=== PATIENT | female | born 1965 | race Caucasian/White ===

== ENCOUNTER 2020-07-11 09:11 | Emergency (ER) | payer OTHER, MEDICAID, SELFPAY ==
[2020-07-11 09:20] VITALS: BP 152/93; PULSE 103; RESP 20; TEMP 37.1; O2SAT 100
--- NOTE | 2020-07-11 10:00 | ED.DENTAL ---
HPI - Dental/Oral General Chief complaint: Dental/Oral Stated complaint: tooth pain Source: patient and RN notes reviewed Limitations: no limitations History of Present Illness HPI Narrative: The patient, a smoker/rare drinker, presents with tooth ache. Patient states she had a tooth extraction earlier in the week, before the holiday weekend. She now complains of continued pain despite several visits subsequently, she is concerned she might have a mandible fracture [she was told she does not have dry socket].She has been treated with antibiotics and Tylenol with codeine ,which she has run out of. She requests refill pending her next dental visit. No fever, hoarseness, trismus, redness, discharge, and pain is worse at the left lower jaw extraction site-while the upper area is not as painful. Related Data Home Medications Medication Instructions Recorded Confirmed hydrocodone 7.5 mg-acetaminophen 1 tablet PO BID PRN 03/27/20 07/11/20 300 mg tablet duloxetine 30 mg capsule,delayed 60 mg PO BID cap 05/27/20 07/11/20 release cyclobenzaprine 10 mg PO DIRECTED 07/11/20 07/11/20 pregabalin 75 mg PO DAILY 07/11/20 07/11/20 sertraline 50 mg PO DAILY 07/11/20 07/11/20 Allergies Allergy/AdvReac Type Severity Reaction Status Date / Time No Known Allergies Allergy Unverified 12/03/18 09:21 Review of Systems Review of Systems: Narrative: General/Constitutional: No weight loss,fever Eyes: N0: Redness,discharge Ears/Nose/Throat: No: Epistaxis,ear discharge Respiratory: Denies: Hemoptysis Gastrointestinal: No Vomiting, Bleeding-rectal Skin: No Lumps, eruption Neurologic: No Focal Weakness,Sz Hematologic: Denies: Petechiae/Purpura Psychiatric: No: Suicida ideationl All Other Systems: Reviewed and Negative FORMERLY [facility] Past Medical History Medical History (Updated 07/11/20 @ 09:39 by Panda Gamboa MD) Anxiety Arthritis Back pain Bilateral hand pain Depression Fibromyalgia GERD (gastroesophageal reflux disease) IBS (irritable bowel syndrome) Migraines Surgical History Surgical History History of appendectomy History of cholecystectomy History of total right knee replacement Family History Family History Mother Depression Anxiety Father Hypertension Grandparent Anxiety Depression Heart attack Grandparent Dementia Grandparent Carcinoma of colon Alzheimer disease Social History Social History Smoking status: Current every day smoker Tobacco type: cigarettes Additional smoking assessment comments: 1 PPD Alcohol intake: current Substance use: never Substance use type: does not use Additional living arrangements comments: Gender identity (if verbalized by the patient): Female Comments At time of signature, agree with nursing past medical, surgical, social and family history. There is no relevant family history pertinent to the presenting complaint Exam Narrative: Exam Narrative: General Appearance: Well appearing, Well nourished, Obese EYE: PERRLA, EOMI, Conjunctiva clear Ears: External ear normal, Auditory canal normal Nose: Normal nose Mouth/Throat: Normal appearing -with mild left lower jaw swelling), Normal lips, MM moist, Uvula midline (scattered dental caries and fillings,, with rare fracture, well-healing extraction site Neck: Supple, No adenopathy Respiratory: Airway patent, No respiratory distress, Clear to auscultation Cardiovascular: RRR Musculoskeletal: Full ROM, Non tender, Normal strength Spine/Back: Normal ROM Skin: Warm, Dry, Normal color Neurological: A&O x3, Speech clear, CN II-XII intact Psychiatric: Normal mood, Normal affect Course Vital Signs Vital signs: Vital Signs Temperature 98.8 F 07/11/20 09:20 Pulse Rate 103 H 07/11/20 09:20 Respiratory Rate 20 12
== END 2020-07-11 09:43 | disposition home or self-care (01) ==
PROVIDERS: Emergency Provider Emergency Medicine; PCP Internal Medicine
DX: G89.18 Other acute postprocedural pain (principal); F41.9 Anxiety disorder, unspecified; M19.90 Unspecified osteoarthritis, unspecified site; F32.9 Major depressive disorder, single episode, unspecified; M79.7 Fibromyalgia; K21.9 Gastro-esophageal reflux disease without esophagitis
CPT/HCPCS: 99213; G0463

== ENCOUNTER 2021-04-01 16:50 | Emergency (ER) | payer OTHER, SELFPAY ==
--- NOTE | 2021-04-01 16:53 | ED.SKABFB ---
HPI - Skin/Abscess/Foreign Bdy General Chief complaint: Skin/Abscess/Foreign Body Stated complaint: left pointer finger lac Time Seen by Provider: 04/01/21 16:53 Source: patient and RN notes reviewed History of Present Illness HPI narrative: Patient is a 55-year-old female who presents the urgent care with complaints of a laceration to the tip of the left index finger. Patient is right-hand dominant. States that she was using a box person to open a package at approximately 4:30 PM and it was not able to control the bleeding. No other acute complaints. No acute distress noted. Patient aware of the plan of care. Some parts of this dictation were generated by voice recognition software and may contain typographical and/or grammatical inaccuracies. Related Data Home Medications Medication Instructions Recorded Confirmed hydrocodone 7.5 mg-acetaminophen 1 tablet PO BID PRN 03/27/20 07/11/20 300 mg tablet duloxetine 30 mg capsule,delayed 60 mg PO BID cap 05/27/20 07/11/20 release pregabalin 75 mg PO DAILY 07/11/20 07/11/20 sertraline 50 mg PO DAILY 07/11/20 07/11/20 Allergies Allergy/AdvReac Type Severity Reaction Status Date / Time No Known Allergies Allergy Verified 04/01/21 17:27 Review of Systems Review of Systems: CONSTITUTIONAL: Denies fever, chills, or sweats. EYES: Denies visual changes, redness, or discharge. ENT: Denies rhinorrhea, congestion, sore throat, or otalgia. CARDIOVASCULAR: Denies chest pain, palpitations, or edema. RESPIRATORY: Denies cough or dyspnea. GASTROINTESTINAL: Denies abdominal pain, nausea, vomiting, or diarrhea. GENITOURINARY: Denies dysuria or hematuria. SKIN: Reports of a laceration to the tip of the left index finger MUSCULOSKELETAL: Denies back pain, joint pain, or myalgia. NEUROLOGIC: Denies headache, numbness, or weakness. All other systems reviewed are negative, except as documented in HPI. FORMERLY [facility], [facility] Past Medical History Medical History (Updated 04/01/21 @ 17:29 by KRISTEN Chandler) Anxiety Arthritis Back pain Bilateral hand pain Depression Fibromyalgia GERD (gastroesophageal reflux disease) IBS (irritable bowel syndrome) Migraines Surgical History Surgical History History of appendectomy History of cholecystectomy History of total right knee replacement Family History Family History Mother Depression Anxiety Father Hypertension Grandparent Anxiety Depression Heart attack Grandparent Dementia Grandparent Carcinoma of colon Alzheimer disease Social History Social History Smoking status: Current every day smoker Tobacco type: cigarettes Additional smoking assessment comments: 1 PPD Alcohol intake: current Alcohol use details: Wine- occasionally Substance use: never Substance use type: does not use Additional living arrangements comments: Gender identity (if verbalized by the patient): Female Comments At the time of my signature, I reviewed and agree with the nursing past medical, surgical, social, and family history. There is no relevant family history pertinent to the patient complaint. Exam Narrative: GENERAL: This is a well-nourished, well-developed patient, in no apparent distress. HEAD: normocephalic, atraumatic. EYES: PERRL. Sclera clear/white. Vision is grossly intact. EARS: External ears normal NOSE: External nose normal with no obvious nasal discharge, nares without redness, no rhinorrhea. THROAT: Mucous membranes moist NECK: Neck supple CARDIOVASCULAR: Regular rate and rhythm without murmurs, gallops, or rubs. RESPIRATORY: Clear to auscultation. Breath sounds equal bilaterally. No wheezes, rales, or rhonchi. SKIN: 0.75 cm superficial laceration to the tuft of the left index finger. NEURO: awake, alert, and oriented to person, place and
[2021-04-01 16:58] VITALS: BP 111/72; PULSE 125; RESP 20; TEMP 36.3; O2SAT 96
== END 2021-04-01 17:50 | disposition home or self-care (01) ==
PROVIDERS: Emergency Provider Nurse Practitioner Family; PCP Internal Medicine
DX: S61.211A Laceration without foreign body of left index finger without damage to nail, initial encounter (principal); Z79.891 Long term (current) use of opiate analgesic; F17.210 Nicotine dependence, cigarettes, uncomplicated; W45.8XXA Other foreign body or object entering through skin, initial encounter
CPT/HCPCS: 12001; 99212; G0463

== ENCOUNTER 2021-06-16 19:19 | Emergency (ER) | payer OTHER, SELFPAY ==
--- NOTE | ~2021-06-16 | XR_ITS ---
EXAMINATION: XR chest 2V DATE: 06/16/2021 19:41 INDICATION: Cough. TECHNIQUE: Frontal and lateral views of the chest were obtained. COMPARISON: Chest 2 views 07/14/2017 FINDINGS: The chest demonstrates clear lungs without pneumonia, pleural effusion, or pneumothorax. Th e heart size is normal. Surgical clips in the right upper quadrant are likely from cholecystectomy. IMPRESSION: 1. No acute cardiopulmonary disease. Reviewed, dictated and finalized at location A. [facility]
[2021-06-16 19:30] VITALS: BP 150/88; PULSE 91; RESP 22; TEMP 36.8; O2SAT 99
[2021-06-16 20:01] VITALS: BP 150/88; PULSE 91; RESP 22; TEMP 36.8; O2SAT 99
--- NOTE | 2021-06-16 20:11 | ED.URI ---
HPI - URI/Sore Throat General Chief Complaint: Upper Respiratory Infection Stated Complaint: Cough/Headache Time Seen by Provider: 06/16/21 19:45 Source: patient, RN notes reviewed and old records reviewed Mode of arrival: ambulatory Limitations: no limitations History of Present Illness HPI Narrative: 55-year-old female who presents to [facility] with complaints of nasal congestion starting last week with cough starting on Monday which has increased daily which is harsh. Patient states some shortness of breath and has noticed some wheezing especially at night when lying down.Patient reports that she has some shortness of breath with cough and feels light head at times when she coughs. Patient as been COVID vaccinated but not received Booster yet. Patient reports that she has taken Tylenol and Mucinex sinus for her symptoms which has not relieved any of her symptoms. MD elicited complaint: cough, rhinorrhea and other (shortness of breath with some wheezing) Related Data Home Medications Medication Instructions Recorded Confirmed esomeprazole magnesium [Nexium 20 mg PO DAILY 06/16/21 06/16/21 24HR] hydrocodone-acetaminophen 1 tablet PO Q6-8H PRN 06/16/21 06/16/21 paroxetine HCl 40 mg PO DAILY 06/16/21 06/16/21 pregabalin 200 mg PO BID 06/16/21 06/16/21 valacyclovir 1 mg PO DAILY 06/16/21 06/16/21 Allergies Allergy/AdvReac Type Severity Reaction Status Date / Time No Known Allergies Allergy Verified 04/01/21 17:27 Review of Systems Review of Systems: CONSTITUTIONAL: Low grade fever, chills, or sweats. EYES: Denies visual changes, redness, or discharge. ENT: Positive rhinorrhea, congestion, sore throat, ears feel clogged CARDIOVASCULAR: Denies chest pain, palpitations, or edema. RESPIRATORY:Positive for cough or dyspnea with cough and wheezing. GASTROINTESTINAL: Denies abdominal pain, nausea, vomiting, or diarrhea. GENITOURINARY: Denies dysuria or hematuria. SKIN: Denies rash or itching. MUSCULOSKELETAL: Chronic back pain, joint pain, or myalgia. NEUROLOGIC: Positive for headache, numbness, or weakness. PSYCHIATRIC:Positive anxiety or depression. All systems reviewed & are unremarkable except as noted in HPI and below PMFSH Past Medical History Medical History (Updated 06/17/21 @ 00:00 by Background Daemon) Anxiety Arthritis Back pain Bilateral hand pain Depression Fibromyalgia GERD (gastroesophageal reflux disease) IBS (irritable bowel syndrome) Migraines Surgical History Surgical History (Updated 06/19/21 @ 17:37 by Suzi Crystal NP) History of appendectomy History of cholecystectomy History of tonsillectomy History of total right knee replacement Family History Family History Mother Depression Anxiety Father Hypertension Grandparent Anxiety Depression Heart attack Grandparent Dementia Grandparent Carcinoma of colon Alzheimer disease Social History Social History (Updated 06/19/21 @ 17:49 by Suzi Crystal NP) Smoking packs per day: 0.5 Smoking cigarettes per day: 10.0 Years smoked: 18 Smoking pack-years: 9.00 Smoking status: Former smoker Tobacco type: cigarettes Alcohol intake: current Alcohol use details: Wine- occasionally Substance use: never Substance use type: does not use Additional living arrangements comments: Gender identity (if verbalized by the patient): Female Comments At time of signature, agree with nursing past medical, surgical, social and family history. There is no relevant family history pertinent to the presenting complaint Exam Narrative: GENERAL: Well-appearing, well-nourished, and in no acute distress. HEAD: Normocephalic, atraumatic. EYES: PERRLA and EOMI. ENT: Nares patent, clear rhinorrhea no epistaxis. Mucous membranes moist.TM's lauren;l with good light reflex, throat red with no lesions or exudates, tonsils absent NECK: Supple.no lymphaden
== END 2021-06-16 20:25 | disposition home or self-care (01) ==
PROVIDERS: Emergency Provider Registered Nurse
DX: J40 Bronchitis, not specified as acute or chronic (principal); Z20.822 Contact with and (suspected) exposure to COVID-19; Z79.891 Long term (current) use of opiate analgesic; Z87.891 Personal history of nicotine dependence
CPT/HCPCS: 71046; 87426; 99213; C9803; G0463

== ENCOUNTER 2022-03-24 17:37 | Emergency (ER) | payer OTHER, SELFPAY ==
--- NOTE | ~2022-03-24 | XR_ITS ---
EXAMINATION: XR shoulder RT min 2V DATE: 03/24/2022 18:22 INDICATION: Anterior right shoulder pain and limited range of motion post fall TECHNIQUE: AP internally and externally rotated, AP oblique externally rotated and transscapular Y vi ews of the affected shoulder were obtained. COMPARISON: None FINDINGS: Normal alignment. No fracture. Glenohumeral joint is normal. Mild acromioclavicular osteoarthritis. Soft tissues are unremarkable. Visualized portions of the right lung are clear. IMPRESSION: Mild acromial clavicular osteoarthritis. No acute osseous abnormality. Reviewed, dictated and finalized at location A.
--- NOTE | ~2022-03-24 | XR_ITS ---
EXAMINATION: XR ankle RT min 3V DATE: 03/24/2022 18:22 INDICATION: Right ankle pain and swelling post fall TECHNIQUE: Anteroposterior, oblique, mortise, and lateral views of the right ankle were obtained. COMPARISON: None. FINDINGS: Alignment is normal. No fracture. Joint spaces are well maintained. No ankle joint effusion. Mild s oft tissue swelling about the ankle both medially and laterally. IMPRESSION: 1. No right ankle joint effusion or osseous abnormality. Reviewed, dictated and finalized at location A.
--- NOTE | ~2022-03-24 | XR_ITS ---
EXAMINATION: XR hip RT min 2V DATE: 03/24/2022 18:22 INDICATION: Lateral right hip pain post fall TECHNIQUE: Anteroposterior and frog-leg lateral views of the right hip were obtained. COMPARISON: None. FINDINGS: Alignment is normal. No fracture. Right hip and sacroiliac joint spaces are normal. Mild soft tissue swelling and mild subcutaneous edema lateral to the greater trochanter. IMPRESSION: 1. No osseous abnormality. Reviewed, dictated and finalized at location A. IMPRESSION: 1. No osseous abnormality.
[2022-03-24 17:45] VITALS: BP 102/64; PULSE 98; RESP 16; TEMP 36.7; O2SAT 97
--- NOTE | 2022-03-24 18:19 | ED.GENADULT ---
HPI - General Adult General Chief complaint: Extremity Injury, Lower Stated complaint: right ankle leg and hip injury Time Seen by Provider: 03/24/22 18:00 Source: patient, RN notes reviewed and old records reviewed Mode of arrival: ambulatory Limitations: no limitations History of Present Illness HPI narrative: 56-year-old female who presents to [facility] care with complaints of pain to her right hip, right ankle, and right shoulder after experiencing fall yesterday morning. Patient reports she was stepping up onto step onto the porch and missed the step falling into a brick wall with pain to right ankle laterally with some swelling noted, is able to put weight on her foot.Patient reports that she did hit her head bur denies any LOC or headache pain today, or any dizziness. Patient is concerned related to upcoming back surgery. MD complaint: pain right ankle, hip and shooulder Onset (ago): day(s) (happened yesterday morning) Severity scale (1-10): 7 Treatments prior to arrival: other (on muscle relaxer and pain medication for back) Related Data Home Medications Medication Instructions Recorded Confirmed esomeprazole magnesium 20 mg 20 mg PO DAILY 06/16/21 03/24/22 capsule,delayed release (Nexium 24HR) paroxetine HCl 40 mg tablet 40 mg PO DAILY 06/16/21 03/24/22 valacyclovir 1 gram tablet 1 mg PO DAILY 06/16/21 03/24/22 atorvastatin 10 mg tablet 10 mg PO DAILY 03/24/22 03/24/22 hydrocodone 10 mg-acetaminophen 1 tablet PO DAILY 03/24/22 03/24/22 325 mg tablet prazosin 1 mg capsule 1 mg PO DAILY 03/24/22 03/24/22 pregabalin 300 mg capsule 300 mg PO DAILY 03/24/22 03/24/22 Allergies Allergy/AdvReac Type Severity Reaction Status Date / Time No Known Allergies Allergy Verified 03/24/22 18:08 Review of Systems Review of Systems: CONSTITUTIONAL: Denies fever, chills, or sweats. EYES: Denies visual changes, redness, or discharge. ENT: Denies rhinorrhea, congestion, sore throat, or otalgia. CARDIOVASCULAR: Denies chest pain, palpitations, or edema. RESPIRATORY: Denies cough or dyspnea. GASTROINTESTINAL: Denies abdominal pain, nausea, vomiting, or diarrhea. GENITOURINARY: Denies dysuria or hematuria. SKIN: Denies rash or itching. MUSCULOSKELETAL: positive for chronic back pain,positive for right lateral ankle pain right nip and right shoulder from fall or myalgia. NEUROLOGIC: Denies headache, numbness, or weakness. PSYCHIATRIC: Denies anxiety or depression. All systems reviewed & are unremarkable except as noted in HPI and below PMFSH Past Medical History Medical History Anxiety Arthritis Back pain Bilateral hand pain Depression Fibromyalgia GERD (gastroesophageal reflux disease) IBS (irritable bowel syndrome) Migraines Surgical History Surgical History History of appendectomy History of cholecystectomy History of tonsillectomy History of total right knee replacement Family History Family History Mother Depression Anxiety Father Hypertension Grandparent Anxiety Depression Heart attack Grandparent Dementia Grandparent Carcinoma of colon Alzheimer disease Social History Social History Smoking packs per day: 0.5 Smoking cigarettes per day: 10.0 Years smoked: 18 Smoking pack-years: 9.00 Smoking status: Former smoker Tobacco type: cigarettes Alcohol intake: current Alcohol use details: Wine- occasionally Substance use: never Substance use type: does not use Additional living arrangements comments: Gender identity (if verbalized by the patient): Female Comments At time of signature, agree with nursing past medical, surgical, social and family history. There is no relevant family history pertinent to the presenting complaint Exam Narrati
== END 2022-03-24 19:15 | disposition home or self-care (01) ==
PROVIDERS: Emergency Provider Registered Nurse; PCP Internal Medicine
DX: S40.011A Contusion of right shoulder, initial encounter (principal); S70.01XA Contusion of right hip, initial encounter; S93.401A Sprain of unspecified ligament of right ankle, initial encounter; S96.911A Strain of unspecified muscle and tendon at ankle and foot level, right foot, initial encounter; W10.9XXA Fall (on) (from) unspecified stairs and steps, initial encounter; Z87.891 Personal history of nicotine dependence; M19.90 Unspecified osteoarthritis, unspecified site; M79.7 Fibromyalgia; K21.9 Gastro-esophageal reflux disease without esophagitis; F41.9 Anxiety disorder, unspecified; F32.A Depression, unspecified
CPT/HCPCS: 73030; 73502; 73610; 99214; G0463

== ENCOUNTER 2022-09-24 11:33 | Emergency (ER) | payer OTHER, SELFPAY ==
[2022-09-24 11:38] VITALS: BP 115/81; PULSE 126; RESP 20; TEMP 36.9; O2SAT 98
--- NOTE | 2022-09-24 11:44 | ED.URI ---
HPI - URI/Sore Throat General Chief Complaint: Upper Respiratory Infection Stated Complaint: sinus and ears History of Present Illness HPI Narrative: patient presents with bilateral ear pain and nasal congestion. no fever no cough patient states she had covid 3 weeks ago and still has nasal congestion. Patient was evaluated by PCP on monday and told her she has a viral infection. Related Data Home Medications Medication Instructions Recorded Confirmed esomeprazole magnesium 20 mg 20 mg PO DAILY 06/16/21 03/24/22 capsule,delayed release (Nexium 24HR) paroxetine HCl 40 mg tablet 40 mg PO DAILY 06/16/21 03/24/22 valacyclovir 1 gram tablet 1 mg PO DAILY 06/16/21 03/24/22 atorvastatin 10 mg tablet 10 mg PO DAILY 03/24/22 03/24/22 hydrocodone 10 mg-acetaminophen 1 tablet PO DAILY 03/24/22 03/24/22 325 mg tablet prazosin 1 mg capsule 1 mg PO DAILY 03/24/22 03/24/22 pregabalin 300 mg capsule 300 mg PO DAILY 03/24/22 03/24/22 Allergies Allergy/AdvReac Type Severity Reaction Status Date / Time No Known Allergies Allergy Verified 03/24/22 18:08 Review of Systems Review of Systems: CONSTITUTIONAL: Denies chills, or sweats. Reports fever and generalized body aches EYES: Denies visual changes, redness, or discharge. ENT: Denies otalgia. Reports nasal congestion runny nose and sore throat CARDIOVASCULAR: Denies chest pain, palpitations, or edema. RESPIRATORY: Denies dyspnea. Reports occasional cough GASTROINTESTINAL: Denies abdominal pain, nausea, vomiting, or diarrhea. GENITOURINARY: Denies dysuria or hematuria. SKIN: Denies rash or itching. MUSCULOSKELETAL: Denies back pain, joint pain, or myalgia. Reports generalized body aches NEUROLOGIC: Denies headache, numbness, or weakness. PSYCHIATRIC: Denies anxiety or depression. [facility] Past Medical History Medical History Anxiety Arthritis Back pain Bilateral hand pain Depression Fibromyalgia GERD (gastroesophageal reflux disease) IBS (irritable bowel syndrome) Migraines Surgical History Surgical History History of appendectomy History of cholecystectomy History of tonsillectomy History of total right knee replacement Family History Family History Mother Depression Anxiety Father Hypertension Grandparent Anxiety Depression Heart attack Grandparent Dementia Grandparent Carcinoma of colon Alzheimer disease Social History Social History Smoking packs per day: 0.5 Smoking cigarettes per day: 10.0 Years smoked: 18 Smoking pack-years: 9.00 Smoking status: Former smoker Tobacco type: cigarettes Alcohol intake: current Alcohol use details: Wine- occasionally Substance use: never Substance use type: does not use Living arrangements: alone Additional living arrangements comments: Occupation/Education: occupation Gender identity (if verbalized by the patient): Female Comments At time of signature, agree with nursing past medical, surgical, social and family history. There is no relevant family history pertinent to the presenting complaint Exam Narrative: The patient is a well-developed, well-nourished in no acute distress. SKIN: Skin is warm and dry without erythema, swelling or exudate. There is good turgor. No tenting. HEAD: Atraumatic. Normocephalic. No temporal or scalp tenderness. EYES: Moist and bright. Sclera and conjunctivae normal. No discharge. PERRLA. Extraocular motions intact. Gross visual acuity intact. EARS: Pinna is normal shape and contour. Clear external auditory canals. TM pearly wilson with good cone of light, no erythema or suppuration. Bilateral cerumen noted no gross hearing deficit. NOSE: pink, moist mucosa with good air movement. Clear rhinorrhea without nasal flar
== END 2022-09-24 12:02 | disposition home or self-care (01) ==
PROVIDERS: Emergency Provider Nurse Practitioner Family; PCP Internal Medicine
DX: J06.9 Acute upper respiratory infection, unspecified (principal); B34.9 Viral infection, unspecified; Z87.891 Personal history of nicotine dependence; M19.90 Unspecified osteoarthritis, unspecified site; M79.7 Fibromyalgia; K21.9 Gastro-esophageal reflux disease without esophagitis; F41.9 Anxiety disorder, unspecified; F32.A Depression, unspecified; Z96.651 Presence of right artificial knee joint
CPT/HCPCS: 99213; G0463

== ENCOUNTER 2022-12-26 18:06 | Emergency (ER) | payer OTHER, SELFPAY ==
--- NOTE | ~2022-12-26 | XR_ITS ---
EXAM: XR hand RT min 3V DATE: 12/26/2022 18:25 HISTORY: CAUGHT IN T[place]LE 12/26/22. ATTN: 3-5TH DIGITS. . COMPARISON: None available. FINDINGS: Decreased mineralization. No fracture or dislocation. No lytic or blastic lesion. Mild sca ttered degenerative changes. No erosion or periosteal change. Soft tissues within normal limits. IMPRESSION: No acute osseous finding in the right hand. Reviewed, dictated and finalized at location K.
[2022-12-26 18:12] VITALS: BP 150/100; PULSE 77; RESP 20; TEMP 36.7; O2SAT 100
--- NOTE | 2022-12-26 18:18 | ED.UPPEXIN ---
HPI - Extremity Injury (Upper) General Chief Complaint: Extremity Injury, Upper Stated Complaint: Finger Injury History of Present Illness HPI narrative: PATIENT PRESENTS WITH AN INJURY TO HER HAND. PATIENT WAS SETTING UP A FENCE AND CAUGHT HER 3RD, 4TH AND TH FINGERS IN THE CHAIN LINK FENCE. PAIN TO FINGERS WITH MOVEMENT. NO OPEN AREAS NOTED. Related Data Home Medications Medication Instructions Recorded Confirmed esomeprazole magnesium 20 mg 20 mg PO DAILY 06/16/21 03/24/22 capsule,delayed release (Nexium 24HR) paroxetine HCl 40 mg tablet 40 mg PO DAILY 06/16/21 03/24/22 valacyclovir 1 gram tablet 1 mg PO DAILY 06/16/21 03/24/22 atorvastatin 10 mg tablet 10 mg PO DAILY 03/24/22 03/24/22 hydrocodone 10 mg-acetaminophen 1 tablet PO DAILY 03/24/22 03/24/22 325 mg tablet prazosin 1 mg capsule 1 mg PO DAILY 03/24/22 03/24/22 pregabalin 300 mg capsule 300 mg PO DAILY 03/24/22 03/24/22 Allergies Allergy/AdvReac Type Severity Reaction Status Date / Time No Known Allergies Allergy Verified 03/24/22 18:08 Review of Systems Review of Systems: CONSTITUTIONAL: DENIES FEVER, CHILLS, OR SWEATS. EYES: DENIES VISUAL CHANGES, REDNESS, OR DISCHARGE. ENT: DENIES RHINORRHEA, CONGESTION, SORE THROAT, OR OTALGIA. CARDIOVASCULAR: DENIES CHEST PAIN, PALPITATIONS, OR EDEMA. RESPIRATORY: DENIES COUGH OR DYSPNEA. GASTROINTESTINAL: DENIES ABDOMINAL PAIN, NAUSEA, VOMITING, OR DIARRHEA. GENITOURINARY: DENIES DYSURIA OR HEMATURIA. SKIN: DENIES RASH OR ITCHING. MUSCULOSKELETAL: DENIES BACK PAIN, JOINT PAIN, OR MYALGIA. NEUROLOGIC: DENIES HEADACHE, NUMBNESS, OR WEAKNESS. PSYCHIATRIC: DENIES ANXIETY OR DEPRESSION. [facility] Past Medical History Medical History Anxiety Arthritis Back pain Bilateral hand pain Depression Fibromyalgia GERD (gastroesophageal reflux disease) IBS (irritable bowel syndrome) Migraines Surgical History Surgical History History of appendectomy History of cholecystectomy History of tonsillectomy History of total right knee replacement Family History Family History Mother Depression Anxiety Father Hypertension Grandparent Anxiety Depression Heart attack Grandparent Dementia Grandparent Carcinoma of colon Alzheimer disease Social History Social History Smoking packs per day: 0.5 Smoking cigarettes per day: 10.0 Years smoked: 18 Smoking pack-years: 9.00 Smoking status: Former smoker Tobacco type: cigarettes Alcohol intake: current Alcohol use details: Wine- occasionally Substance use: never Substance use type: does not use Living arrangements: alone Additional living arrangements comments: Occupation/Education: occupation Gender identity (if verbalized by the patient): Female Comments AT TIME OF SIGNATURE, AGREE WITH NURSING PAST MEDICAL, SURGICAL, SOCIAL AND FAMILY HISTORY. THERE IS NO RELEVANT FAMILY HISTORY PERTINENT TO THE PRESENTING COMPLAINT Exam Narrative: GENERAL: WELL-APPEARING, WELL-NOURISHED, AND IN NO ACUTE DISTRESS. HEAD: NORMOCEPHALIC, ATRAUMATIC. EYES: PERRLA AND EOMI. ENT: NARES CLEAR, NO RHINORRHEA OR EPISTAXIS. MUCOUS MEMBRANES MOIST. NECK: SUPPLE. CHEST: CLEAR TO AUSCULTATION. NO RESPIRATORY DISTRESS. HEART: REGULAR RATE AND RHYTHM. NO MURMUR HEARD. NORMAL PERIPHERAL PULSES. ABDOMEN: SOFT, NONTENDER, NONDISTENDED, NORMAL ACTIVE BOWEL SOUNDS. EXTREMITIES: NORMAL RANGE OF MOTION. NO EDEMA. HAND EXAM - Skin intact, no laceration, no swelling, no erythema, normal digit cascade with flexion of fingers, median nerve, ulnar nerve, radial nerve is intact. Normal sensation of each side of each finger, can perform `ok? sign, `cross over finger test of index and middle fingers? and `thumbs up? sign, normal thumb oppo
== END 2022-12-26 18:45 | disposition home or self-care (01) ==
PROVIDERS: Emergency Provider Nurse Practitioner Family; PCP Internal Medicine
DX: S63.612A Unspecified sprain of right middle finger, initial encounter (principal); S63.614A Unspecified sprain of right ring finger, initial encounter; S63.616A Unspecified sprain of right little finger, initial encounter; X58.XXXA Exposure to other specified factors, initial encounter; M19.90 Unspecified osteoarthritis, unspecified site; M79.7 Fibromyalgia; K21.9 Gastro-esophageal reflux disease without esophagitis; F41.9 Anxiety disorder, unspecified; F32.A Depression, unspecified; Z87.891 Personal history of nicotine dependence; Z96.651 Presence of right artificial knee joint
CPT/HCPCS: 73130; 99213; G0463

== ENCOUNTER 2025-03-30 14:06 | Emergency (ER) | payer MEDICARE, MEDICAID, SELFPAY ==
--- OUTSIDE RECORDS SUMMARY | 2025-03-30 14:13 | XMS_ITS | Encounter Summary ---
Author Organization [facility] Address [address] [facility] [address] [place] [id number] Care Team Providers Care Curing Room Worker Name Role Phone Danilo Lopez MD Primary Care Provider [phone] Danilo Lopez MD Primary Care Provider [phone] Chasidy Blanco RN Unavailable [phone] Georgie OlivaW Unavailable [phone] Mc Herrera MD Unavailable + [phone] Yves Koch MD Primary Care Provider Loretta Rincon MD PhD Unavailable Florence Rausch MD Unavailable [phone] Neo Botello MD PhD Unavailable [phone] Sabas Perez MD Unavailable + [phone] Johan Jang MD Unavailable [phone] Yves Koch MD Primary Care Provider Johan Jang MD Unavailable [phone] Yves Koch MD Primary Care Provider Manish Perez CHIEF OF PRODUCTION Unavailable Encounter Details Date Type Department Care Team (Late st Contact Info) Description 05/19/2015 Orders Only [facility] Health Information Management [address] [place] [address] Scanning, Provider Social History Tobacco Use Types Packs/Day Years Used Date Smoking Tobacco: Former Alcohol Use Standard Drinks/Week Comments No 0 (1 standard drink = 0.6 oz pur e alcohol) Comments Unknown Sex and Gender Information Value Date Recorded Sex Assigned at Not on file Legal Sex Female 6:40 PM E TAILER Gender Identity Female 05/19/2022 11:43 PM CDT Sexual Orientation Not on file documented as of this encounter Plan of Treatment Upcoming Encounters Date Type Department Care Team (Late Contact Info) Description 06/17/2025 12:00 PM E TAILER Hospital Encounter [address] [address] Toya Toro MD [address] [place] [address] DR ENGEL [address] [place] [address] 06/17/2025 12:00 PM E TAILER - 06/17/2025 12:30 PM E TAILER Surgery [address] [address] Toya Toro MD [address] [place] [address] DR ENGEL [address] [place] [address] COLONOSCOPY Scheduled Procedures Name Priority Associated Diagnoses Date/Ti me COLONOSCOPY Family history of colon cancer History of colonic polyps Colitis Encounter for screening colonoscopy 06/17/2025 12:00 PM E TAILER documented as of this encounter Procedures Procedure Name Priority Date/Time Associated Diagnosis Comments SCAN - LABS 05/19/2015 documented in this encounter Results * SCAN - LABS (05/19/2015) Provider Scanning Final Result documented in this encounter Visit Diagnoses Not on filedocumented in this encounter Additional Health Concerns Infection Onset Date Last Indicated Resolved Time MRSA 10/16/2020 10/16/2020 09/14/2021 4:00 AM E TAILER COVID: Suspected 08/30/2022 09/01/2022 08/31/2022 3:05 AM E TAILER Exposure, COVID-19 Comment:Added automatically based on COVID19 lab answers indicating exposure risk 06/09/2023 06/09/2023 06/19/2023 3:[address] COVID: Suspected 06/23/2023 06/23/2023 06/23/2023 11:25 PM E TAILER C. difficile 06/23/2023 06/23/2023 07/06/2023 4:40 PM E TAILER COVID: Suspected 06/26/2023 06/26/2023 06/26/2023 4:30 PM E TAILER Diarrhea 08/25/2023 08/25/2023 08/25/2023 1:12 PM E TAILER C. difficile Comment:02/05/25 - Patient meets established clinical criteria for discontinuation of C. difficile isolation precautions. 08/25/2023 08/25/2023 02/05/2025 10:54 AM CDT COVID: Suspected 08/27/2023 08/27/2023 08/27/2023 6:52 PM E TAILER COVID: Suspected 05/03/2024 05/03/2024 05/03/2024 6:05 PM CDT C. difficile suspected 01/26/2025 01/26/202501/26 8:50 PM CDT Norovirus suspected 01/26/2025 01/26/2025 01/28/20 12:39 AM CDT documented as of this encounter Care Teams Curing Room Worker Relationship Specialty Start Date End Date Danilo Lopez MD PCP - General 10/14/16 11/05/23 Danilo Lopez MD PCP - General 11/06/13 10/13/16 Yves Koch MD [address] [facility] ([facility] Mailstop [phone] [place] [address] PCP - General Family Medicine 11/06/23 02/19/24 Johan Jang MD [address] [place] [address] [address] [address] PCP - Behavioral Health Psychiatry 02/20/24 4 Yves Koch MD [address] [facility] ([facility]) Mailstop [phone] [place] [address] PCP - General Family Medicine 02/20/24 12/24/24 Yves Koch MD [address] [facility] [address] [place], [place] [id number] PCP - General Family Medicine 12/25/24 Chasidy Blanco, RN [address] [facility] [address] [place] [address] [employer] Outpatient Aerodynamics Professor 05/30/22 06/26/22 Georgie Oliva LCSW [address] [facility] ([facility]) Mailstop [phone] [place] [address] [employer] Outpatient Aerodynamics Professor 06/15/23 06/15/23 Mc Herrera MD [address] [facility] ([facility]) Mailstop [phone] [place] [address] Consulting Physician Infectious Diseases 07/03/23 Loretta Rincon MD PhD [address] [facility] [address] [place] [address] Dermatology 11/06/23 Florence Rausch MD [address] [place] [address] Consulting Physician Internal Medicine 11/06/23 Neo Botello MD PhD [address] [place] [address] Consulting Physician Neurosurgery 11/06/23 Sabas Perez MD [address] [place] [address] DR TARA Cazares [address] [place] [address] Package Handler Obstetrics and Gynecology 11/06/23 Johan Jang MD [address] [place] [address] [address] [place] [address] Consulting Physician Psychiatry 02/20/24 Manish Perez NP [address] [place] [address] [address] [place] [address] Nurse Practitioner Orthopedic Surgery 02/11/25 documented as of this encounter
--- OUTSIDE RECORDS SUMMARY | 2025-03-30 14:13 | XMS_ITS | Encounter Summary ---
Author Organization [facility] Healthcare Address [address] [place] [address] Care Team Providers Care Firepot Operator And Tender Name Role Phone Mc Herrear MD Unavailable + [phone] Loretta Rincon MD PhD Unavailable Florence Rausch MD Unavailable [phone] Neo Botello MD PhD Unavailable [phone] Sabas Perez MD Unavailable [phone] Johan Jang MD Unavailable [phone] Yves Koch MD Primary Care Provider Manish Perez NP Unavailable [phone] Encounter Details Date Type Department Care Team (Late st Contact Info) Description 01/31/2025 Results Follow-Up [facility] Primary Care at [address] [address] Yves Koch MD [address] [place] [address] [address] [place] [address] Lipid panel Social History Tobacco Use Types Packs/Day Years Used Date Smoking Tobacco: Former Cigarettes 0.5 36.2 1 984 - 10/13/2019 Smokeless Tobacco: Never Comments:socially Alcohol Use Standard Drinks/Week Comments Yes 0 (1 standard drink = 0.6 oz pur e alcohol) OASIS D0700: Social Isolation Answer Da te Recorded Frequency of experiencing loneliness or isolatio n Sometimes 08/16/2023 OASIS A1250: Transportation Answer Date Recorded Lack of Transportation (Medical) No 08/16/2023 Lack of Transportation (Non-Medical) No 08/16/2023 Patient Unable or Declines to Respond No 08/16/2023 OASIS B1300: Health Literacy Answer Juan e Recorded Frequency of needing help to read materials from doctor or pharmacy Never 08/16/2023 [facility] Utilities Answer Date Recorded In the past 12 months has e electric, gas, oil, or water [employer] threatened to shut off services in your home? No 08/28/2023 Social Connection and Isolation Panel Answer Date Recorded In a typical week, how many times do you talk on the phone with family, friends, or neighbors? More than three times a week 08/28/2023 How often do you get togethe r with friends or relatives? Twice a week 08/28/2023 How often do you attend chur ch or latter day services? Never 08/28/2023 Do you belong to any clubs o r organizations such as anglican groups, unions, fraternal or athletic groups, or school groups? No 08/28/2023 How often do you attend meet ings of the clubs or organizations you belong to? Never 08/28/2023 Are you , , di vorced, , never , or living with a partner? 08/28/2023 AUDIT-C Answer Date Recorded Q1: How often do you have a drink containing alc ohol? Monthly or less 02/04/2025 Q2: How many drinks containi ng alcohol do you have on a typical day when you are drinking? 1 or 2 02/04/2025 Q3: How often do you have si x or more drinks on one occasion? Never 02/04/2025 Overall Financial Resource Strain (CARDIA) Answe r Date Recorded How hard is it for you to pa y for the very basics like food, housing, medical care, and heating? Very hard 08/28/2023 PHQ-2 Answer Date Recorded PHQ-2 Total Score (If total score is 3 or more points, staff should administer the PHQ-9) 0 01/29/2025 Hunger Vital Sign Answer Date Recorded Within the past 12 months, y ou worried that your food would run out before you got the money to buy more. Often true 08/28/19 24 Within the past 12 months, t he food you bought just didn't last and you didn't have money to get more. Often true 08/28/2023 PRAPARE - Transportation Answer Date Re corded In the past 12 months, has l ack of transportation kept you from medical appointments or from getting medications? No 08/17 In the past 12 months, has l ack of transportation kept you from meetings, work, or from getting things needed for daily living? No 08/28/2023 Housing Stability Vital Sign Answer Juan e Recorded In the last 12 months, was t here a time when you were not able to pay the mortgage or rent on time? No 08/28/2023 In the last 12 months, how many places have you lived? 1 08/28/2023 In the last 12 months, was t here a time when you did not have a steady place to sleep or slept in a fpc (including now)? No 08/28/2023 Personal Safety Answer Date Recorded Have you ever been in or are you currently in a harmful physical or emotional relationship or is someone making you feel afraid or unsafe? Denies 01/26/2025 Education Answer Date Recorded What is the highest level of school you have completed or the highest degree you have received? Associate degree: occupational, technical, or vocational program 08/28/2023 Comments No Sex and Gender Information Value Date Recorded Sex Assigned at Not on file Legal Sex Female 6:40 PM FORM MAKER Gender Identity Female 05/19/2022 11:43 PM CDT Sexual Orientation Not on file documented as of this encounter Miscellaneous Notes * Result Encounter Note - Yves Koch MD - 01/31/2025 5:34 AM CDT The lipid panel obtained shows improvement in terms of your triglyceride levels which is still elevated but less than what was in the past. Your cholesterol level is actually decent so continue with current level of atorvastatin. But I want you to start taking omega-3/fish oil supplements [id number] which do help with lowering your triglyceride levels. Goal of up to 4 grams of Green-3 dailyfor the supplement. documented in this encounter Plan of Treatment Upcoming Encounters Date Type Department Care Team (Late st Contact Info) Description 06/17/2025 12:00 PM FORM MAKER Hospital Encounter [address] [address] Toya Toro MD [address] [facility] [address] [place] [address] 06/17/2025 12:00 PM FORM MAKER - 06/17/2025 12:30 PM FORM MAKER Surgery [address] [address] Toya Toro MD [address] [facility] [address] [place] [address] COLONOSCOPY Scheduled Procedures Name Priority Associated Diagnoses Date/Ti me COLONOSCOPY Family history of colon cancer History of colonic polyps Colitis Encounter for screening colonoscopy 06/17/2025 12:00 PM FORM MAKER documented as of this encounter Goals Goal Patient Goal Type Associated Problems Recent Progress Patient-Stated? Author CCM Chronic Pain Care Plan Chronic Care Management No Aida Rust, BETSY Note: Problem: Chronic Pain Goals: 1. Minimize further functional decline 2. Maximize quality of life 3. Control pain Strategies: - Activity/exercise program recommendation - Conservative stepwise pain medicine strategy with multi-disciplinary approach - Recommend healthy lifestyle strategies and compensatory methods as needed Reduce the likelihood of falling Lifestyle No Aida Rust, BETSY Note: Below are four things you can do to prevent falls: Begin an exercise program to improve your leg strength & balance Ask your doctor or pharmacist to review your medicines Get annual eye check-ups & update your eyeglasses Make your home safer by: Removing clutter & tripping hazards Putting railings on all stairs & adding grab bars in the bathroom Having good lighting, especially on stairs Contact your local community or [facility] for information on exercise, fall prevention programs, or options for improving home safety. documented as of this encounter Visit Diagnoses Not on filedocumented in this encounter Additional Health Concerns Infection Onset Date Last Indicated Resolved Time C. difficile Comment:02/05/25 - Patient meets established clinical criteria for discontinuation of C. difficile isolation precautions. 08/25/2023 08/25/2023 02/05/2025 10:54 AM CDT documented as of this encounter Care Teams Firepot Operator And Tender Relationship Specialty Start Date End Date Yves Koch MD [address] [facility] [address] [place] [address] PCP - General Family Medicine 12/25/24 Mc Herrera MD Consulting Physician Infectious Diseases 07/03/23 Loretta Rincon MD PhD [address] [facility] [address] [place] [address] Dermatology 11/06/23 Florence Rausch MD [address] [facility] [address] [place] [address] Consulting Physician Internal Medicine 11/06/23 Neo Botello MD PhD [facility] [address] [facility] [address] [place] [address] Consulting Physician Neurosurgery 11/06/23 Sabas Perez MD [address] [place] [address] DR TARA Cazares [facility] [address] [place] [address] Aesthetician Obstetrics and Gynecology 11/06/23 Johan Jang MD [address] [place] [address] [address] [place] [address] Consulting Physician Psychiatry 02/20/24 Manish Perez NP [address] [facility] [address] [place] [address] Nurse Practitioner Orthopedic Surgery 02/11/25 documented as of this encounter
--- OUTSIDE RECORDS SUMMARY | 2025-03-30 14:13 | XMS_ITS | Encounter Summary ---
Author Organization [facility] Address [address] [place] [address] Phone Care Team Providers Care Manager Banquet Name Role Phone Danilo Lopez MD Primary Care Provider [phone] Reason for Referral * PT/OT/ST (Routine) - Authorized Specialty Diagnoses / Procedures Referred By Contac t Referred To Contact Physical Therapy Diagnoses S/P right rotator cuff repair Boris Sweeney MD [address], [address] [place] [address] Phone: tel: fax: [facility] [address] [facility], [address] [address] Phone: tel: fax: Referral ID Status Reason Start Date Expiration Date V isits Requested Visits Authorized [id number] Authorized 02/14/2025 100 18 Scheduling Instructions Encounter Details Date Type Department Care Team (Late st Contact Info) Description 02/14/2025 Transcribe Orders [facility] [address] [place] [address] Boris Sweeney MD [address], [address] [place] [address] S/P right rotator cuff repair (Primary Dx) Social History Tobacco Use Types Packs/Day Years Used Date Smoking Tobacco: Former Cigarettes 2019 Smokeless Tobacco: Never Alcohol Use Standard Drinks/Week Comments Not Currently 0 (1 standard drink = 0.6 oz pur e alcohol) socially Sexually Active Control Partners Comments Yes Male Comments No Sex and Gender Information Value Date Recorded Sex Assigned at Not on file Legal Sex Female 11:07 PM CDT Gender Identity Not on file Sexual Orientation Not on file documented as of this encounter Plan of Treatment Scheduled Referrals Name Type Priority Associated Diagnoses Orde r Schedule PHYSICAL THERAPY REFERRAL Outpatient Referral Routine S/P right rotator cuff repair Expected: 02/14/2025, Expires: 02/14/2026 documented as of this encounter Visit Diagnoses Diagnosis S/P right rotator cuff repair- Primary documented in this encounter Care Teams Manager Banquet Relationship Specialty Start Date End Date Danilo Lopez MD PCP - General Internal Medicine 03/16/17 documented as of this encounter
--- OUTSIDE RECORDS SUMMARY | 2025-03-30 14:13 | XMS_ITS | Clinical Summary ---
Author Organization [facility] Address [address] [place] [address] Care Team Providers Care Flaker Tender Name Role Phone Mc Herrera MD Unavailable [phone] Loretta Rincon MD PhD Unavailable Florence Rausch MD Unavailable [phone] Neo Botello MD PhD Unavailable [phone] Sabas Perez MD Unavailable Johan Jang MD Unavailable [phone] Yves Koch MD Primary Care Provider Manish Perez NP Unavailable [phone] Allergies Active Allergy Reactions Criticality Noted Date Comments Oxycodone Nausea & Vomiting Low 02/11/[address] (NexIUM) 20 mg capsuleIndication s:Treatment of Non-Bleeding Gastric Disorder Take 1 capsule (20 mg total) by mouth daily before breakfast Active atorvastatin (LIPITOR) 10 mg tabletIndications :Mixed hyperlipidemia TAKE 1 TABLET BY MOUTH EVERY DAY 90 tablet 3 024 Active fluticasone propionate (FLONASE) 50 mcg/actuation nasal sprayIndications: Viral illness SPRAY 2 SPRAYS INTO EACH NOSTRIL EVERY DAY 3 each 1 025 Active empagliflozin (JARDIANCE) 25 mg tabletIndications :type 2 diabetes mellitus Take 1 tablet (25 mg total) by mouth daily 90 tablet 1 025 Active pregabalin (LYRICA) 150 mg capsuleIndication s:Spinal stenosis of lumbar region with neurogenic claudication Take 1 capsule (150 mg total) by mouth 2 (two) times a day 120 capsule 1 025 2025 Active PARoxetine (PAXIL) 30 mg tabletIndications :Generalized anxiety disorder,Recurren t major depressive disorder, in partial remission Take 1 tablet (30 mg total) by mouth every morning 90 tablet 1 025 2025 Active cyclobenzaprine (FLEXERIL) 5 mg tabletIndications :Muscle Spasm Take 1 tablet (5 mg total) by mouth 2 (two) times a day as needed for muscle spasms 60 tablet 025 Active valACYclovir (VALTREX) 1 gram tabletIndications :Other (complete free text reason below),Fever Blister TAKE 1 TABLET BY MOUTH EVERY DAY 30 tablet 2 025 Active HYDROcodone-aceta minophen (NORCO) 5-325 mg per tabletIndications :Pain Take 1-2 tablets by mouth every 6 (six) hours as needed for pain 30 tablet 025 Active busPIRone (BUSPAR) 10 mg tablet Take 1 tablet (10 mg total) by mouth 2 (two) times a day 60 tablet 1 025 Active busPIRone (BUSPAR) 10 mg tablet 024 2024 Discontinued(R eorder) valACYclovir (VALTREX) 1 gram tabletIndications :Other (complete free text reason below),Fever Blister TAKE 1 TABLET BY MOUTH EVERY DAY 30 tablet 6 025 2024 Discontinued cyclobenzaprine (FLEXERIL) 5 mg tabletIndications :Muscle Spasm TAKE 1 TABLET (5 MG TOTAL) BY MOUTH 2 (TWO) TIMES A DAY NEEDED FOR MUSCLE SPASMS. 60 tablet 025 2024 Discontinued(R eorder) celecoxib (CeleBREX) 200 mg capsule Take 1 capsule (200 mg total) by mouth 2 (two) times a day for 14 days 28 capsule 025 2024 Discontinued(T herapy completed) ascorbic acid (VITAMIN C) 500 mg tablet,chewable Take 1 tablet/chew tab (500 mg total) by mouth 2 (two) times a day 60 tablet/navid w tab 025 2024 Discontinued(T herapy completed) cholecalciferol (VITAMIN D-3) 2000 unit capsule Take 1 capsule (2,000 Units total) by mouth daily 30 capsule 025 2024 Discontinued(T herapy completed) ondansetron (ZOFRAN) 4 mg tabletIndications :Prevention of Post-Operative Nausea and Vomiting Take 1 tablet (4 mg total) by mouth every 6 (six) hours as needed for nausea or vomiting 30 tablet 1 025 2024 Discontinued(T herapy completed) senna-docusate (PERICOLACE) 8.6-50 mg 1-2 times daily as needed for constipation 60 tablet 1 025 2024 Discontinued(T herapy completed) aspirin 81 mg enteric coated tabletIndications :prevention of thrombosis Take 1 tablet (81 mg total) by mouth 2 (two) times a day for 14 days 28 tablet 025 2024 Discontinued(T herapy completed) HYDROcodone-aceta minophen (NORCO) 5-325 mg per tabletIndications :Pain Take 1-2 tablets by mouth every 6 (six) hours as needed for pain 30 tablet 025 2024 Discontinued(R eorder) HYDROcodone-aceta minophen (NORCO) 5-325 mg per tabletIndications :Pain Take 1-2 tablets by mouth every 6 (six) hours as needed for pain 30 tablet 025 2024 Discontinued(R eorder) HYDROcodone-aceta minophen (NORCO) 5-325 mg per tabletIndications :Pain Take 1-2 tablets by mouth every 6 (six) hours as needed for pain 30 tablet 025 2024 Discontinued(R eorder) HYDROcodone-aceta minophen (NORCO) 5-325 mg per tabletIndications :Pain Take 1-2 tablets by mouth every 6 (six) hours as needed for pain 30 tablet 025 2024 Discontinued(R eorder) Active Problems Problem Noted Date Diagnosed Date Family history of colon cancer 01/30/2025 History of colonic polyps 01/30/2025 Encounter for screening colonoscopy 01/30/2025 Colitis 01/29/2025 Assessment & Plan (01/29/2025 5:25 PM CDT): - recent diagnosis in ED - she also has hx of C. Diff colitisin past but tested negative for it - has known chronic diarrhea for over a decade, no blood in stool or rectum - She has a daughter who has ulcerative colitis Recurrent diarrhea and abdominal discomfort. CT scan indicated colitis; stool sample negative for C. difficile. Differential includes ulcerative colitis, given family history and symptoms. Last colonoscopy in 2014 showed reticulosis but was otherwise normal. Symptoms have resolved recently, but chronic diarrhea persists. A new colonoscopy is warranted to assess for inflammatory bowel conditions such as ulcerative colitis or Crohn's disease, especially given family history and potential for inflammation rather than infection. - Refer for colonoscopy after shoulder surgery and resolution of colitis symptoms to assess for inflammatory bowel conditions such as ulcerative colitis or Crohn's disease. CT ABDOMEN PELVIS W CONTRAST 01/2025 IMPRESSION: 1. Thickening of the wall of the descending and sigmoid colon with some stranding in the surrounding fat suggesting inflammatory or infectious colitis. There is also thickening of the wall of the rectum with surrounding perirectal stranding suggesting proctitis. No bowel obstruction or abscess. 2. Multiple air-fluid levels are noted within the colon consistent with the patient's diarrheal state. 3. Surgical absence of the gallbladder. 4. 1 cm cyst right kidney. 5. Large coarse calcifications within the right breast may reflect sequela of prior trauma. Correlate with patient history. Traumatic complete tear of right rotator cuff Impingement syndrome of right shoulder Arthritis of right acromioclavicular joint 01/20 Biceps tendinitis on right 01/20/2025 CKD stage 3a, GFR 45-59 ml/min 11/06/2024 Overview (11/06/2024): Established with Nephrology Assessment & Plan (01/29/2025 5:25 PM CDT): - chronic condition, better controlled - Establish with Nephrology - Has known well-controlled diabetes currently on metformin but given her chronic kidney disease stage IIIA was started on Jardiance 10 mg daily on prior visit --> renal function has improved, switching her off metformin and increasing Jardiance to 25 mg daily, script sent in - She was told the Lyrica medication not good for her renal function by nephrology office which is currently being tapered down per request, see plan under spinal stenosis of lumbar region Lab Results Component Value Date CREATININE 1.04 01/26/2025 CREATININE 0.88 01/22/2025 CREATININE 1.17 (H) 09/25/2024 CREATININE 1.16 (H) 09/25/2024 Assessment & Plan (11/06/2024 4:59 PM CDT): - Establish with Nephrology - Has known well-controlled diabetes currently on metformin but given her chronic kidney disease stage IIIA was started on Jardiance 10 mg daily, prescription sent - She was told the Lyrica medication not good for which is currently being tapered down per request, see plan under spinal stenosis of lumbar region Lab Results Component Value Date CREATININE 1.17 (H) 09/25/2024 CREATININE 1.16 (H) 09/25/2024 CREATININE 1.09 09/04/2024 CREATININE 1.09 09/04/2024 Preventative health care 02/20/2024 Assessment & Plan (02/20/2024 2:58 PM CDT): - New or chronic worsening conditions: Obesity - Mental health: stable - Dental health: Recommend regular dental care and cleaning. Discussed importance of regular tooth brushing, flossing, and dental visits. - Nutrition: Recommend moderation in sodium/caffeine intake, saturated fat and cholesterol, caloric balance, sufficient intake of fresh fruits, vegetables - Exercise: Recommend to exercise at least 30 minutes moderate to vigorous exercise most days of the week. (minimum 150 minutes weekly) - Immunizations: Age and sex appropriate immunizations reviewed and offered - Cervical Cancer screening: Up to date, follows with OBGYN - Breast Cancer screening: Up to date - Colon cancer screening: Up to date - Lung cancer screening: not indicated - Bone desnity/osteoporosis screening:not indicated Vitamin B12 deficiency 11/15/2023 Assessment & Plan (08/27/2024 3:17 PM FOREST TECHNOLOGY PROFESSOR): - chronic condition, well controlled - noted on 11/07 wthe level <300 - currently on B12 1000 mcg daily - recheck labs, order placed on this visit Lab Results Component Value Date VITB12 525 02/21/2024 Lab Results Component Value Date FOLATE 7.6 11/15/2023 Assessment & Plan (02/20/2024 4:01 PM CDT): - recent diagnosis, better controlled - noted on 11/07 wthe level <300 - Started B12 1000 mcg daily - recheck labs, order placed Lab Results Component Value Date VITB12 245 11/15/2023 Lab Results Component Value Date FOLATE 7.6 11/15/2023 PTSD (post-traumatic stress disorder) 11/06/2023 Assessment & Plan (08/27/2024 5:10 PM FOREST TECHNOLOGY PROFESSOR): - chronic condition, controlled with persistent symptoms - hx of depression, anxiety, panic attacks, PTSD - currently on Paxil 40 mg daily - on minipress 1 mg nightly for nightmares - former patient of Dr. Rendon (Psychiatry), seeing psychiatry at [facility] - in past has failed Sertraline due to ineffectiveness - she was referred to psychiatry by prior PCP but has not heard from them - continue current management Assessment & Plan (11/06/2023 2:32 PM CDT): - chronic condition, controlled with persistent symptoms - hx of depression, anxiety, panic attacks, PTSD - currently on Paxil 40 mg daily - on minipress 1 mg nightly for nightmares - former patient of Dr. Rendon (Psychiatry) - in past has failed Sertraline due to ineffectiveness - she was referred to psychiatry by prior PCP but has not heard from them - continue current management S/P total knee replacement, right 11/06/2023 Class 1 obesity due to exces s calories with serious comorbidity and body mass index (BMI) of 33.0 to 33.9 in adult 08/07/2023 Assessment & Plan (08/27/2024 3:10 PM FOREST TECHNOLOGY PROFESSOR): Wt Readings from Last 3 Encounters: 08/27/24 96.8 kg (213 lb 8 oz) 07/04/24 96.6 kg (213 lb) 05/08/24 96.2 kg (212 lb) Body mass index is 33.43 kg/m . - chronic condition, not at goal - goal BMI <30 - BMI Follow-up includes: nutrition counseling, exercise counseling and education provided - Recommend to exercise at least 30 minutes moderate to vigorous exercise most days of the week. (minimum 150 minutes weekly) - offered her dietitian/counseling - discussed with her importance of calorie counting and knowing how much calories she takes it on a daily basis and setting up a realistic goal, we went over calculator to show would be the recommended calorie amount for the desired amount of weight she wants to lose with a specific period of time that she indicated - co-morbidities - hyperlipidemia, pre-diabetes Assessment & Plan (02/20/2024 4:06 PM CDT): Wt Readings from Last 3 Encounters: 02/20/24 97.8 kg (215 lb 8 oz) 01/25/24 95.9 kg (211 lb 6.4 oz) 11/06/23 95.2 kg (209 lb 14.4 oz) Body mass index is 33.74 kg/m . - chronic condition, not at goal, worse, weight gain noted - BMI Follow-up includes: nutrition counseling, exercise counseling and education provided - Recommend to exercise at least 30 minutes moderate to vigorous exercise most days of the week. (minimum 150 minutes weekly) - offered her dietitian/counseling - discussed with her importance of calorie counting and knowing how much calories she takes it on a daily basis and setting up a realistic goal, we went over calculator to show would be the recommended calorie amount for the desired amount of weight she wants to lose with a specific period of time that she indicated - co-morbidities - hyperlipidemia, pre-diabetes Assessment & Plan (11/06/2023 3:49 PM CDT): Wt Readings from Last 3 Encounters: 11/06/23 95.2 kg (209 lb 14.4 oz) 10/26/23 91.6 kg (202 lb) 09/14/23 91.9 kg (202 lb 9.6 oz) Body mass index is 32.87 kg/m . - chronic condition, not at goal, worse, weight gain noted - BMI Follow-up includes: nutrition counseling, exercise counseling and education provided - Recommend to exercise at least 30 minutes moderate to vigorous exercise most days of the week. (minimum 150 minutes weekly) - co-morbidities - hyperlipidemia C. difficile colitis 06/24/2023 Assessment & Plan (09/09/2023 9:17 AM FOREST TECHNOLOGY PROFESSOR): Continue cholestyramine and complete course of vancomycin. Avoid any antibiotics going forward. Probiotics recommended. Patient asked to scheduled evaluation for any return diarrhea. Assessment & Plan (09/07/2023 1:57 PM FOREST TECHNOLOGY PROFESSOR): Improved on Dificid and complete her infusion tomorrow. Follow-up with ID as they direct Status post lumbar surgery 06/24/2023 Ground glass opacity present on imaging of lung 06/09/2023 Assessment & Plan (06/09/2023 11:47 AM FOREST TECHNOLOGY PROFESSOR): Would recommend evaluation by pulmonology given bilateral GGO's and hypoxia. Wean O2 as able to determine true degree of hypoxia if present (may also be partially driven by narcotics). Osteoporosis 11/25/2022 Overview (08/27/2024): Follows with Bone health specialist Assessment & Plan (11/06/2023 2:53 PM CDT): - chronic condition - Managed by bone health specialist - was on Tymlos per bone health 10/18/2022 until 04/2023 - continue current management - has f/u with bone health specialist coming up Lab Results Component Value Date PTH 38 11/04/2022 CALCIUM 8.9 08/29/2023 CAION 4.71 06/12/2023 PHOS 3.4 06/29/2023 Assessment & Plan (11/25/2022 2:25 PM CDT): Managed by bone [facility] Complex tear of medial meniscus of left knee Overview (09/01/2022): Added automatically from request for surgery [id number] Assessment & Plan (09/19/2022 3:29 PM FOREST TECHNOLOGY PROFESSOR): Patient has limited perioperative risk factors and functional capacity is close to normal and scheduled for low risk surgical procedure and therefore would be an appropriate candidate for current surgery without further intervention or workup however she has had a recent DVT on a 3 month course of anticoagulation. Would recommend postponing this surgery until the 3 months is completed then proceeding thereafter. Deep vein thrombosis (DVT) of lower extremity Assessment & Plan (09/19/2022 3:28 PM FOREST TECHNOLOGY PROFESSOR): Would recommend she postpone her surgery until she has completed 3 full months of anticoagulation. She is currently asymptomatic in regards to her previous DVT. Patient aware of signs and symptoms of recurrent DVT which would prompt repeat visit after surgery. Assessment & Plan (08/15/2022 6:37 AM FOREST TECHNOLOGY PROFESSOR): Continue Eliquis for minimum 3 months from her DVT. Assessment & Plan (08/05/2022 11:56 AM FOREST TECHNOLOGY PROFESSOR): Stable continue Eliquis 5 mg. Constipation 04/25/2022 Assessment & Plan (04/25/2022 5:50 PM CDT): Linzess not covered. Try MiraLax and Metamucil. Decrease narcotic pain medication. Renal lesion 04/25/2022 Assessment & Plan (12/11/2022 8:21 AM CDT): Renal MRI and call back for results. Assessment & Plan (04/25/2022 5:49 PM CDT): Renal MRI and call back for results. Lumbosacral radiculopathy 03/04/2022 Overview (03/04/2022): Added automatically from request for surgery [id number] Assessment & Plan (09/09/2023 9:18 AM FOREST TECHNOLOGY PROFESSOR): Improved following surgery and should follow up with her surgeon as they direct. Lumbar stenosis with left L5 radiculopathy 03/24 Overview (08/27/2024): - s/p evaluation Neurosurgery 06/2025 for Lumbar disc herniation with radiculopathy --> was told hardware is in place, has a CT scan scheduled in near future Assessment & Plan (12/11/2022 8:22 AM CDT): Follow-up with her surgeon and bone health specialist as they direct. Assessment & Plan (08/15/2022 6:37 AM FOREST TECHNOLOGY PROFESSOR): Follow-up With pain management in her surgeon as they direct. Return back to her [place] and try to decrease intake as able Assessment & Plan (09/27/2021 6:14 PM CDT): Patient with continued lumbar radiculopathy on the left side despite recent microdiskectomy. Follow-up with neurosurgeon for repeat MRI and further intervention. Assessment & Plan (04/27/2021 2:34 PM CDT): Follow-up with her neurosurgeon as they direct. When her current supply of [place] runs out, increase to 10/325 1 tablet every 6 hours as needed. Warned of potential side effects Spinal stenosis of lumbar re gion with neurogenic claudication 03/24/2021 Overview (08/27/2024): S/p Lumbar spine fusion x2 Assessment & Plan (01/29/2025 11:35 AM CDT): - chronic condition, well controlled - follows with Neurosurgery - Dr. Botello - s/p surgery as shown/listed below - no longer on [place] 10-325 QID PRN, cymbalta 30 mg daily or Tizanidine 4 mg TID PRN - past surgical intervention on 05/2022 and also on 05/2023 (second lumbar fusion with big improvement of symptoms) - currently on Lyrica which is being tapered down from high of 300 mg BID --> currently on 200 mg BID --> further taper down to as she is doing well and wants to try lower doses so change to 150 mg Pregabalin to take BID, script sent in 05/20/2022 FUSION SPINAL - WITH INSTRUMENTATION - DIRECT LATERAL INTERBODY FUSION L4-5 Lateral Lumber Interbody Fusion FUSION SPINAL ANTERIOR LUMBAR/THORACIC WITH INSTRUMENTATION L5-S1 lateral Left Anterior Lumbar Fusion 05/25/2022 L4-S1 posterior spinal instrumented fusion, left L4-5 foraminotomy and medial facetectomy, bilateral L5-S1 foraminotomies 06/05/2023 REMOVAL HARDWARE SPINE Stage 1: Removal of Posterior Instrumentation at L4-S1 FUSION SPINAL ANTERIOR LUMBAR/THORACIC WITH INSTRUMENTATION Stage 2: L4-S1 Anterior Lumbar Interbody Fusion CORPECTOMY - THORACIC/LUMBAR Stage 2: L5 Corpectomy 06/12/2023 FUSION SPINAL - POSTERIOR LUMBAR/THORACIC WITH INSTRUMENTATION L3 - PELVIS; LATERAL INTERBODY FUSION L2-L3, L3-L4 Stage 3:L3-Pelvis Posterior Spinal Fusion. L2-L3, L3-L4 Lateral Interbody Fusion Assessment & Plan (11/06/2024 5:00 PM CDT): - chronic condition, well controlled - follows with Neurosurgery - Dr. Botello - s/p surgery as shown/listed below - no longer on [place] 10-325 QID PRN, cymbalta 30 mg daily or Tizanidine 4 mg TID PRN - past surgical intervention on 05/2022 and also on 05/2023 (second lumbar fusion with big improvement of symptoms) - currently on Lyrica which is being tapered down from high of 300 mg BID --> currently on 225 mg BID --> change to 200 mg BID and will taper down further after that 05/20/2022 FUSION SPINAL - WITH INSTRUMENTATION - DIRECT LATERAL INTERBODY FUSION L4-5 Lateral Lumber Interbody Fusion FUSION SPINAL ANTERIOR LUMBAR/THORACIC WITH INSTRUMENTATION L5-S1 lateral Left Anterior Lumbar Fusion 05/25/2022 L4-S1 posterior spinal instrumented fusion, left L4-5 foraminotomy and medial facetectomy, bilateral L5-S1 foraminotomies 06/05/2023 REMOVAL HARDWARE SPINE Stage 1: Removal of Posterior Instrumentation at L4-S1 FUSION SPINAL ANTERIOR LUMBAR/THORACIC WITH INSTRUMENTATION Stage 2: L4-S1 Anterior Lumbar Interbody Fusion CORPECTOMY - THORACIC/LUMBAR Stage 2: L5 Corpectomy 06/12/2023 FUSION SPINAL - POSTERIOR LUMBAR/THORACIC WITH INSTRUMENTATION L3 - PELVIS; LATERAL INTERBODY FUSION L2-L3, L3-L4 Stage 3:L3-Pelvis Posterior Spinal Fusion. L2-L3, L3-L4 Lateral Interbody Fusion Assessment & Plan (08/27/2024 5:09 PM FOREST TECHNOLOGY PROFESSOR): - chronic condition, improved - follows with Neurosurgery - Dr. Botello - s/p surgery as shown/listed below - no longer on [place] 10-325 QID PRN, cymbalta 30 mg daily or Tizanidine 4 mg TID PRN - past surgical intervention on 05/2022 and also on 05/2023 (second lumbar fusion with big improvement of symptoms) - now on Lyrica 300 mg BID --> wants to reduce dose, changes dose to Lyrica 225 mg BID The current medical regimen is effective; continue present plan and medications. 05/20/2022 FUSION SPINAL - WITH INSTRUMENTATION - DIRECT LATERAL INTERBODY FUSION L4-5 Lateral Lumber Interbody Fusion FUSION SPINAL ANTERIOR LUMBAR/THORACIC WITH INSTRUMENTATION L5-S1 lateral Left Anterior Lumbar Fusion 05/25/2022 L4-S1 posterior spinal instrumented fusion, left L4-5 foraminotomy and medial facetectomy, bilateral L5-S1 foraminotomies 06/05/2023 REMOVAL HARDWARE SPINE Stage 1: Removal of Posterior Instrumentation at L4-S1 FUSION SPINAL ANTERIOR LUMBAR/THORACIC WITH INSTRUMENTATION Stage 2: L4-S1 Anterior Lumbar Interbody Fusion CORPECTOMY - THORACIC/LUMBAR Stage 2: L5 Corpectomy 06/12/2023 FUSION SPINAL - POSTERIOR LUMBAR/THORACIC WITH INSTRUMENTATION L3 - PELVIS; LATERAL INTERBODY FUSION L2-L3, L3-L4 Stage 3:L3-Pelvis Posterior Spinal Fusion. L2-L3, L3-L4 Lateral Interbody Fusion Assessment & Plan (02/20/2024 2:46 PM CDT): - chronic - follows with Neurosurgery - Dr. Botello - s/p surgery as shown/listed below - currently on Tizanidine 4 mg TID PRN - currently on Cymbalta 30 mg daily - no longer on [place] 10-325 QID PRN - been on [place] report since age of 42, s/p total Right Knee replacement - reports has had issues with pain management providers that will take her insurance - discussed that I am not comfortable with managing this dose of [place], refer her to pain management in [place] on prior visit - referral placed to [facility] in [place] in the past - she recently had an MRI of the lumbar spine - she has been set up with pain management has a new patient appointment on 03/08/2024 05/20/2022 FUSION SPINAL - WITH INSTRUMENTATION - DIRECT LATERAL INTERBODY FUSION L4-5 Lateral Lumber Interbody Fusion FUSION SPINAL ANTERIOR LUMBAR/THORACIC WITH INSTRUMENTATION L5-S1 lateral Left Anterior Lumbar Fusion 05/25/2022 L4-S1 posterior spinal instrumented fusion, left L4-5 foraminotomy and medial facetectomy, bilateral L5-S1 foraminotomies 06/05/2023 REMOVAL HARDWARE SPINE Stage 1: Removal of Posterior Instrumentation at L4-S1 FUSION SPINAL ANTERIOR LUMBAR/THORACIC WITH INSTRUMENTATION Stage 2: L4-S1 Anterior Lumbar Interbody Fusion CORPECTOMY - THORACIC/LUMBAR Stage 2: L5 Corpectomy 06/12/2023 FUSION SPINAL - POSTERIOR LUMBAR/THORACIC WITH INSTRUMENTATION L3 - PELVIS; LATERAL INTERBODY FUSION L2-L3, L3-L4 Stage 3:L3-Pelvis Posterior Spinal Fusion. L2-L3, L3-L4 Lateral Interbody Fusion Assessment & Plan (11/06/2023 3:51 PM CDT): - chronic - follows with Neurosurgery - Dr. Botello - s/p surgery as shown/listed below - currently on Tizanidine 4 mg TID PRN - currently on Cymbalta 30 mg daily - currently on [place] 10-325 QID PRN - been on [place] report since age of 42, s/p total Right Knee replacement - reports has had issues with pain management providers that will take her insurance - discussed that I am not comfortable with managing this dose of [place], will refer her to pain management in [place] - If needed I can manage it temporarily at a lower dose but will keep lowering dose if it is prolonged - referral placed to [facility] in [place] 05/20/2022 FUSION SPINAL - WITH INSTRUMENTATION - DIRECT LATERAL INTERBODY FUSION L4-5 Lateral Lumber Interbody Fusion FUSION SPINAL ANTERIOR LUMBAR/THORACIC WITH INSTRUMENTATION L5-S1 lateral Left Anterior Lumbar Fusion 05/25/2022 L4-S1 posterior spinal instrumented fusion, left L4-5 foraminotomy and medial facetectomy, bilateral L5-S1 foraminotomies 06/05/2023 REMOVAL HARDWARE SPINE Stage 1: Removal of Posterior Instrumentation at L4-S1 FUSION SPINAL ANTERIOR LUMBAR/THORACIC WITH INSTRUMENTATION Stage 2: L4-S1 Anterior Lumbar Interbody Fusion CORPECTOMY - THORACIC/LUMBAR Stage 2: L5 Corpectomy 06/12/2023 FUSION SPINAL - POSTERIOR LUMBAR/THORACIC WITH INSTRUMENTATION L3 - PELVIS; LATERAL INTERBODY FUSION L2-L3, L3-L4 Stage 3:L3-Pelvis Posterior Spinal Fusion. L2-L3, L3-L4 Lateral Interbody Fusion Lumbar disc herniation with radiculopathy 2020 Assessment & Plan (12/07/2020 10:55 AM CDT): She has not responded to Lyrica muscle relaxers Celebrex and has evidence of degenerative disc disease on x-rays with consistent symptoms including radiating pain from her low back to her feet. MRI lumbar spine for further evaluation. She should also go back to orthopedist for diagnostic/therapeutic bilateral hip injections. We had a lengthy discussion regarding pain medication. For now will increase her hydrocodone acetaminophen 7.5/325 -60 tablets per month and will not plan on increasing further. She needs pain management evaluation which is proving difficult due to her insurance. Multiple thyroid nodules 03/30/2020 Assessment & Plan (03/30/2020 3:56 PM CDT): Continue Nexium Slowly wean down to 16-20 ounces of caffeine per day in the morning, by 8 ounces per day per week Fine needle aspiration of Right thyroid nodule - call with results Laryngopharyngeal reflux (LPR) 03/30/2020 Assessment & Plan (03/30/2020 3:57 PM CDT): Continue Nexium Slowly wean down to 16-20 ounces of caffeine per day in the morning, by 8 ounces per day per week Fine needle aspiration of Right thyroid nodule - call with results LPR discussed and Handout provided 64 ounces of caffeine free and soda free fluid daily Subungual hyperkeratosis 02/28/2020 Assessment & Plan (02/28/2020 8:56 AM CDT): Onychomycosis vs vitamin or mineral deficiency. Pt was advised to remove nail Thai apply OTC Lamisil nail treatments b.i.d. to nightly with further follow-up here in a month to consider oral antifungal therapy if indicated. Other preventative methods discussed. Thyroid nodule 02/14/2020 Assessment & Plan (12/11/2022 8:21 AM CDT): Repeat thyroid ultrasound and call back for results. Assessment & Plan (10/27/2020 2:16 PM CDT): Ultrasound will be ordered by Dr. Britt office. Patient instructed to schedule follow-up appointment with her ENT after ultrasound completed. Assessment & Plan (07/28/2020 5:02 PM FOREST TECHNOLOGY PROFESSOR): Patient is aware that Dr. Deshpande recommended repeat biopsy and she should call their office for scheduling. Assessment & Plan (04/29/2020 4:41 PM CDT): Will follow up on Afirma testing Discussed options for Observation, repeat biopsy or thyroid lobectomy Decision at this point to await Afirma testing then consider repeat biopsy Called on Afirma testing and was nondiagnostic, ordered repeat biopsy Assessment & Plan (03/31/2020 2:26 PM CDT): She is already scheduled for thyroid biopsy and should follow-up with her ENT as they direct. Chronic sinusitis, unspecified 05/31/2018 Assessment & Plan (04/21/2020 5:41 PM CDT): Probably a recurrence of her chronic sinusitis. Trial of Augmentin and fluticasone. COVID-19 testing. Isolate till results known. Assessment & Plan (10/10/2018 10:29 PM CDT): Patient should follow up Dr. Booker for repeat evaluation. Assessment & Plan (05/31/2018 10:22 AM FOREST TECHNOLOGY PROFESSOR): Considering improvement symptoms with the 10 day course of antibiotics and the evidence of some mucosal thickening on last sinus CT scan. I did encourage patient to try 28 day course of Augmentin, Medrol Dosepak along with continuing other medications for both allergic rhinitis and prevention of recurrent sinusitis as well including on Sher, Singulair, and Zyrtec. I did encourage her to touch base with us after completion of antibiotics and steroids letting us know how she is doing overall and certainly in the interim with any additional questions. Recommending probiotics or Lao yogurt were also advised to prevent any GI upset associated with abx use JESSICA (stress urinary incontinence, female) 2016 Generalized anxiety disorder 03/02/2017 Assessment & Plan (01/29/2025 11:37 AM CDT): - chronic condition, controlled with persistent symptoms - hx of depression, anxiety, panic attacks, PTSD - currently on Paxil 40 mg daily --> wants to taper down and will let me know if she feels worse, changed dose to Paxil 30 mg daily - on minipress 1 mg nightly for nightmares - former patient of Dr. Rendon (Psychiatry), seeing psychiatry at [facility] - in past has failed Sertraline due to ineffectiveness - she was referred to psychiatry by prior PCP but has not heard from them - continue current management with changes made above Assessment & Plan (08/27/2024 5:10 PM FOREST TECHNOLOGY PROFESSOR): - chronic condition, controlled with persistent symptoms - hx of depression, anxiety, panic attacks, PTSD - currently on Paxil 40 mg daily - on minipress 1 mg nightly for nightmares - former patient of Dr. Rendon (Psychiatry), seeing psychiatry at [facility] - in past has failed Sertraline due to ineffectiveness - she was referred to psychiatry by prior PCP but has not heard from them - continue current management Assessment & Plan (02/20/2024 2:42 PM CDT): - chronic condition, controlled with persistent symptoms - hx of depression, anxiety, panic attacks, PTSD - currently on Paxil 40 mg daily - on minipress 1 mg nightly for nightmares - former patient of Dr. Rendon (Psychiatry) - in past has failed Sertraline due to ineffectiveness - she was referred to psychiatry by prior PCP but has not heard from them, I have refilled her medication in the mean time - continue current management Assessment & Plan (11/06/2023 2:32 PM CDT): - chronic condition, controlled with persistent symptoms - hx of depression, anxiety, panic attacks, PTSD - currently on Paxil 40 mg daily - on minipress 1 mg nightly for nightmares - former patient of Dr. Rendon (Psychiatry) - in past has failed Sertraline due to ineffectiveness - she was referred to psychiatry by prior PCP but has not heard from them - continue current management Assessment & Plan (12/11/2022 8:23 AM CDT): Stable on paroxetine. Assessment & Plan (12/07/2020 10:53 AM CDT): Stable on her current medication regimen and should follow-up with her psychiatrist as they direct. Assessment & Plan (07/28/2020 5:00 PM FOREST TECHNOLOGY PROFESSOR): Follow-up with her psychiatrist as they direct. Assessment & Plan (07/12/2020 7:08 PM FOREST TECHNOLOGY PROFESSOR): Continue duloxetine follow-up with her psychiatrist as they direct. Assessment & Plan (03/31/2020 2:27 PM CDT): Increase duloxetine to 60 mg daily. Refer for counseling. Patient had a work due to current anxiety and chronic pain and will complete paperwork excusing her for 30 more days. Will see her back in 30 days for repeat evaluation or sooner if needed. Assessment & Plan (02/28/2020 8:58 AM CDT): Increasing Cymbalta 30 mg once daily once again discussing the S/Es, sx to report to clinic. Pt was given information regarding and opioid abuse support service for family's along with contacting [facility] as she has an appointment in May with psychiatrist, which is a bit off. Will see if we can touch base with [facility] further hope of controlling her anxiety and reaching out to a counselor. Assessment & Plan (02/14/2020 10:26 AM CDT): Uncontrolled, please refer to care plan detailed under depression Assessment & Plan (07/26/2019 4:18 PM FOREST TECHNOLOGY PROFESSOR): Stable without medication. Assessment & Plan (10/10/2018 10:26 PM CDT): Stable without medication. Insomnia 03/02/2017 Overview (04/10/2017): Failed Ambien due to constipation. Fibromyalgia 01/19/2017 Assessment & Plan (08/27/2024 5:06 PM FOREST TECHNOLOGY PROFESSOR): - chronic, well controlled - currently on Lyrica 300 mg BID --> wants to reduce dose, discontinue Lyrica 300 mg BID and change to Lyrica 225 mg BID, new script sent in - no longer on Cymbalta - has known anxiety, depression, and PTSD Assessment & Plan (11/06/2023 2:40 PM CDT): - chronic, well controlled - currently on Lyrica 300 mg BID (in the past prior PCP tried to cut it down to 200 mg BID but was short lived) - currently on Cymbalta 30 mg daily for what she refers to nerve pains from her back but can also help with fibromyalgia - has known anxiety, depression, and PTSD - continue current management Assessment & Plan (12/07/2020 10:53 AM CDT): Decrease her Lyrica to 200 mg twice daily and call back in 1 month if no improvement so that we can continue titrating down as it seems like it is not benefiting her. Assessment & Plan (10/27/2020 2:15 PM CDT): Stable on her Lyrica tizanidine tramadol Celebrex. Follow-up with application support developer as they direct. Assessment & Plan (07/28/2020 5:01 PM FOREST TECHNOLOGY PROFESSOR): Her psychiatrist discontinued her duloxetine. Change meloxicam to Celebrex. Warned of side effects and take with food. Continue Lyrica and call back for increased dose if needed. Continue tizanidine and tramadol. Follow-up with application support developer as they direct. Assessment & Plan (07/12/2020 7:09 PM FOREST TECHNOLOGY PROFESSOR): Continue duloxetine 60 mg daily. Add Lyrica and discussed side effects and call back if any develop. Follow-up with Rheumatology as they direct. Assessment & Plan (03/31/2020 2:25 PM CDT): Increased duloxetine to 60 mg daily. Consider adding Lyrica next visit. Follow- up with rheumatology as they direct. Continue with cyclobenzaprine and hydrocodone p.r.n.. Assessment & Plan (02/28/2020 8:58 AM CDT): Recommended consultation to application support developer given ongoing concerns with generalized pain. Pt was recommended to Cnt. Daily activity, nonpharmacologic recommendations increasing Cymbalta to 30 mg in further hope of controlling fibromyalgia and move related issues. [place] refilled for only sparing use as well. RTC 1 month Assessment & Plan (02/14/2020 10:27 AM CDT): Trial of Cymbalta to assist with mood disorder, fibromyalgia related pain. Further evaluation in 2 weeks. Follow-up with application support developer as scheduled. Assessment & Plan (07/26/2019 4:18 PM FOREST TECHNOLOGY PROFESSOR): Well controlled with [place] p.r.n. and cyclobenzaprine Assessment & Plan (10/10/2018 10:26 PM CDT): Well controlled on current medication regimen. Assessment & Plan (04/10/2017 7:58 PM CDT): Continue Flexeril, gabapentin, hydrocodone, venlafaxine. Major depressive disorder 01/19/2017 Assessment & Plan (01/29/2025 11:37 AM CDT): - chronic condition, controlled with persistent symptoms - hx of depression, anxiety, panic attacks, PTSD - currently on Paxil 40 mg daily --> wants to taper down and will let me know if she feels worse, changed dose to Paxil 30 mg daily - on minipress 1 mg nightly for nightmares - former patient of Dr. Rendon (Psychiatry), seeing psychiatry at [facility] - in past has failed Sertraline due to ineffectiveness - she was referred to psychiatry by prior PCP but has not heard from them - continue current management with changes made above Assessment & Plan (08/27/2024 5:10 PM FOREST TECHNOLOGY PROFESSOR): - chronic condition, controlled with persistent symptoms - hx of depression, anxiety, panic attacks, PTSD - currently on Paxil 40 mg daily - on minipress 1 mg nightly for nightmares - former patient of Dr. Rendon (Psychiatry), seeing psychiatry at [facility] - in past has failed Sertraline due to ineffectiveness - she was referred to psychiatry by prior PCP but has not heard from them - continue current management Assessment & Plan (02/20/2024 2:43 PM CDT): - chronic condition, controlled with persistent symptoms - hx of depression, anxiety, panic attacks, PTSD - currently on Paxil 40 mg daily - on minipress 1 mg nightly for nightmares - former patient of Dr. Rendon (Psychiatry) - in past has failed Sertraline due to ineffectiveness - she was referred to psychiatry by prior PCP but has not heard from them, have refilled her medication in the meantime - continue current management Assessment & Plan (11/06/2023 2:32 PM CDT): - chronic condition, controlled with persistent symptoms - hx of depression, anxiety, panic attacks, PTSD - currently on Paxil 40 mg daily - on minipress 1 mg nightly for nightmares - former patient of Dr. Rendon (Psychiatry) - in past has failed Sertraline due to ineffectiveness - she was referred to psychiatry by prior PCP but has not heard from them - continue current management Assessment & Plan (09/07/2023 1:56 PM FOREST TECHNOLOGY PROFESSOR): Stable on current medication regimen and new psychiatry referral placed. Assessment & Plan (10/27/2020 2:16 PM CDT): Follow-up with her psychiatrist as they direct. Discuss prazosin with them regarding nightmares. Assessment & Plan (07/28/2020 4:59 PM FOREST TECHNOLOGY PROFESSOR): Continue current medication regimen and follow up with her psychiatrist as they recommend. Recommend counseling. Increase exercise. Assessment & Plan (07/12/2020 7:08 PM FOREST TECHNOLOGY PROFESSOR): Continue duloxetine 60 mg daily. Continue counseling and follow-up with her psychiatrist as they direct. Assessment & Plan (03/31/2020 2:26 PM CDT): Increase duloxetine to 60 mg daily. Refer to [facility] outpatient counseling. She has a psychiatric appointment scheduled in May. Call back or go to the ER if she develops any suicidal or homicidal ideations. She needs to work on her daughters rehab and drug treatment as this seems to be the source of most of her current issues. Assessment & Plan (03/05/2020 3:41 PM CDT): Clinically depression, dysphoric mood still noted. Increasing Cymbalta to 30 mg daily Consultation placed to psychiatrist, Chasidy Uribe at [facility], to follow-up further. I did offer for Pt to reach out to social organization professor given caring for her grandson is difficult predicament. Assessment & Plan (02/14/2020 10:26 AM CDT): Clinically depressed, anxious but with adequate support at home. Given fibromyalgia, mood disorder will start her on Cymbalta in effort of treating both at 20 mg daily, re-evaluating in 2 weeks. Consultation placed to psychiatrist, Chasidy Uribe at [facility], to follow-up further. I did offer for Pt to reach out to social organization professor given caring for her grandson is difficult predicament. S/Es of medication, sx to report to clinic or present to ED regarding provided otherwise follow-up in 2 weeks. Work note was also given excusing her for 2 weeks anticipating need to fill out FMLA PPW in the future. Assessment & Plan (04/10/2017 7:58 PM CDT): Continue venlafaxine. Recurrent genital herpes 01/19/2017 Chronic diarrhea 01/19/2017 Assessment & Plan (01/29/2025 5:22 PM CDT): - Chronic conditions spanning over 10 years, status post colonoscopy in 2014 with benign findings. - Was using antidiarrheal medications on as needed basis in the past Assessment & Plan (04/10/2017 7:58 PM CDT): Sarai p.r.n. follow-up gastroenterology p.r.n. Mixed hyperlipidemia 06/17/2016 Assessment & Plan (01/29/2025 5:28 PM CDT): - chronic condition - status: improved but is not adequately controlled. - current management/medications: Atorvastatin 10 mg daily - start Lopez-3 fish oil supplements for better control of hypertriglyceridemia - other comorbid conditions: Obesity, family hx of hypercholesterolemia in mother and maternal grandfather - patient is compliant with medications. - most recent LDL as shown below - maintain a healthy weight, diet - recheck labs, order placed - continue current management in mean time Lab Results Component Value Date CHOL 193 01/26/2025 CHOL 260 (H) 09/04/2024 CHOL 191 11/15/2023 CHOL 193 11/15/2023 Lab Results Component Value Date HDL 32 (L) 01/26/2025 HDL 42 09/04/2024 HDL 46 11/15/2023 HDL 46 11/15/2023 Lab Results Component Value Date LDLCALC 108 01/26/2025 LDLCALC See Comment 09/04/2024 LDLCALC 114 11/15/2023 LDLCALC 116 11/15/2023 LDL 116 06/20/2016 LDL 82 12/04/2015 LDL 70 05/26/2015 LDLDIRECT 162 (H) 09/04/2024 SCRLDL 75 01/03/2017 Lab Results Component Value Date TRIG 305 (H) 01/26/2025 TRIG 407 (H) 09/04/2024 TRIG 154 (H) 11/15/2023 TRIG 157 (H) 11/15/2023 Lab Results Component Value Date ALT 17 01/26/2025 AST 21 01/26/2025 ALKPHOS 139 (H) 01/26/2025 BILITOT 0.2 01/26/2025 Assessment & Plan (08/27/2024 3:13 PM FOREST TECHNOLOGY PROFESSOR): - chronic condition - status: is adequately controlled. - current management/medications: Atorvastatin 10 mg daily - other comorbid conditions: Obesity - patient is compliant with medications. - most recent LDL as shown below - maintain a healthy weight, diet - will monitor closely The current medical regimen is effective; continue present plan and medications. Recheck Labs. Lab Results Component Value Date LDLCALC 114 11/15/2023 LDLCALC 116 11/15/2023 Lab Results Component Value Date ALT 11 11/15/2023 AST 14 11/15/2023 ALKPHOS 133 (H) 11/15/2023 BILITOT 0.3 11/15/2023 Assessment & Plan (02/20/2024 2:51 PM CDT): - chronic condition - status: is adequately controlled. - current management/medications: Atorvastatin 10 mg daily - other comorbid conditions: Obesity - patient is compliant with medications. - most recent LDL as shown below - maintain a healthy weight, diet - will monitor closely - continue current management Lab Results Component Value Date LDLCALC 114 11/15/2023 LDLCALC 116 11/15/2023 Lab Results Component Value Date ALT 11 11/15/2023 AST 14 11/15/2023 ALKPHOS 133 (H) 11/15/2023 BILITOT 0.3 11/15/2023 Assessment & Plan (11/06/2023 2:38 PM CDT): - chronic condition - status: is adequately controlled. - current management/medications: Atorvastatin 10 mg daily - other comorbid conditions: Obesity - patient is compliant with medications. - most recent LDL as shown below - maintain a healthy weight, diet - will monitor closely - continue current management Lab Results Component Value Date LDLCALC 103 11/23/2022 Lab Results Component Value Date ALT 10 08/25/2023 AST 14 08/25/2023 ALKPHOS 130 08/25/2023 BILITOT 0.3 08/25/2023 Assessment & Plan (09/10/2023 1:27 PM FOREST TECHNOLOGY PROFESSOR): Continue atorvastatin check lipids and LFTs down the road Assessment & Plan (09/09/2023 9:18 AM FOREST TECHNOLOGY PROFESSOR): Continue atorvastatin for now check lipids and LFTs down the road Assessment & Plan (09/07/2023 1:56 PM FOREST TECHNOLOGY PROFESSOR): Continue Atorvastatin and check lipids and LFTs down the road Assessment & Plan (05/26/2023 9:03 AM FOREST TECHNOLOGY PROFESSOR): Diet exercise recommended and continue atorvastatin check lipids and LFTs before next visit Assessment & Plan (12/11/2022 8:22 AM CDT): Well controlled on current therapy and will check a lipid panel and LFTs in 6 months. Assessment & Plan (09/19/2022 3:27 PM FOREST TECHNOLOGY PROFESSOR): Continue atorvastatin check lipids and LFTs before next visit Assessment & Plan (04/25/2022 5:49 PM CDT): Continue her atorvastatin 10 mg daily and check lipids and LFTs next visit. Assessment & Plan (09/27/2021 6:13 PM CDT): Check lipids and LFTs and call back for results. Consider statin therapy. Assessment & Plan (04/27/2021 2:34 PM CDT): Holding on statin therapy for now in favor of diet exercise. Recheck labs before next visit and if risk goes up or cholesterol worsens, consider statin therapy. Assessment & Plan (12/07/2020 10:53 AM CDT): Improved from previous labs which looked to be an error. Check again down the road. Assessment & Plan (10/27/2020 2:17 PM CDT): Cholesterol currently improved and ASCVD risk a 8% therefore recommending careful observation and diet exercise. Assessment & Plan (07/28/2020 5:00 PM FOREST TECHNOLOGY PROFESSOR): I suspect possible laboratory error and will simply repeat her cholesterol panel before next visit. Diet exercise discussed. Will need statin therapy if LDL not significantly improved. Assessment & Plan (07/26/2019 4:18 PM FOREST TECHNOLOGY PROFESSOR): With low risk of ASCVD will go ahead and hold her statin therapy and repeat lipids in 1 year. Assessment & Plan (10/10/2018 10:26 PM CDT): Well controlled on current therapy and will check a lipid panel and LFTs in 6 months. Assessment & Plan (04/10/2017 7:56 PM CDT): Well controlled on current therapy and will check a lipid panel and LFTs in 6 months. 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 - currently on Metformin XR 500 mg daily, started on 11/2023 - Given chronic kidney disease stage 3 I will start her on Jardiance 10 mg daily, prescription sent Lab Results Component Value Date HGBA1C 6.0 (H) 09/04/2024 HGBA1C 5.8 (H) 02/21/2024 HGBA1C 6.2 (H) 11/15/2023 Lab Results Component Value Date LDLCALC See Comment 09/04/2024 CREATININE 1.17 (H) 09/25/2024 CREATININE 1.16 (H) 09/25/2024 Assessment & Plan (08/27/2024 3:11 PM FOREST TECHNOLOGY PROFESSOR): - chronic condition, stable status - recheck labs, order placed - 11/07 - 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 - currently on Metformin XR 500 mg daily, started on 11/2023 - recheck labs, order placed Lab Results Component Value Date HGBA1C 5.8 (H) 02/21/2024 HGBA1C 6.2 (H) 11/15/2023 HGBA1C 5.6 2023 Lab Results Component Value Date LDLCALC 114 11/15/2023 LDLCALC 116 11/15/2023 CREATININE 0.85 11/15/2023 CREATININE 0.86 11/15/2023 Assessment & Plan (02/20/2024 2:44 PM CDT): - chronic condition, stable status - recheck labs, order placed - 11/07 - 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 - discuss options and patient opted to initiate medication, she was started on metformin XR 500 mg daily on November of 2023 Lab Results Component Value Date HGBA1C 6.2 (H) 11/15/2023 HGBA1C 5.6 2023 HGBA1C 6.3 (H) 10/07/2022 Lab Results Component Value Date LDLCALC 114 11/15/2023 LDLCALC 116 11/15/2023 CREATININE 0.85 11/15/2023 CREATININE 0.86 11/15/2023 Assessment & Plan (11/06/2023 3:43 PM CDT): - chronic condition, stable status - recheck labs, order placed - not on any medications, continue management via lifestyle Lab Results Component Value Date HGBA1C 5.6 2023 HGBA1C 6.3 (H) 10/07/2022 HGBA1C 6.2 (H) 04/22/2022 Lab Results Component Value Date LDLCALC 103 11/23/2022 CREATININE 0.80 08/29/2023 Assessment & Plan (09/09/2023 9:18 AM FOREST TECHNOLOGY PROFESSOR): Patient should reduce sugar and carbs, increase exercise, maintain proper body weight, and will check an A1c once or twice yearly. Assessment & Plan (09/07/2023 1:56 PM FOREST TECHNOLOGY PROFESSOR): Check fasting blood sugar and A1c down the road with her new physician Assessment & Plan (12/11/2022 8:23 AM CDT): Patient should reduce sugar and carbs, increase exercise, maintain proper body weight, and will check an A1c once or twice yearly. Assessment & Plan (04/25/2022 5:49 PM CDT): Patient should reduce sugar and carbs, increase exercise, maintain proper body weight, and will check an A1c once or twice yearly. Assessment & Plan (09/27/2021 6:13 PM CDT): Check fasting blood sugar and A1c and call back for results. Assessment & Plan (04/27/2021 2:34 PM CDT): Patient should reduce sugar and carbs, increase exercise, maintain proper body weight, and will check an A1c once or twice yearly. Assessment & Plan (12/07/2020 10:53 AM CDT): Patient should reduce sugar and carbs, increase exercise, maintain proper body weight, and will check an A1c once or twice yearly. Assessment & Plan (10/27/2020 2:15 PM CDT): Patient should reduce sugar and carbs, increase exercise, maintain proper body weight, and will check an A1c once or twice yearly. Assessment & Plan (07/28/2020 4:59 PM FOREST TECHNOLOGY PROFESSOR): Patient should reduce sugar and carbs, increase exercise, maintain proper body weight, and will check an A1c once or twice yearly. Assessment & Plan (07/26/2019 4:17 PM FOREST TECHNOLOGY PROFESSOR): Patient should reduce sugar and carbs, increase exercise, maintain proper body weight, and will check an A1c once or twice yearly. Assessment & Plan (10/10/2018 10:25 PM CDT): Patient should reduce sugar and carbs, increase exercise, maintain proper body weight, and will check an A1c once or twice yearly. Assessment & Plan (04/10/2017 7:57 PM CDT): Patient should reduce sugar and carbs, increase exercise, maintain proper body weight, and will check an A1c once or twice yearly. Personal history of tobacco use 11/30/2013 Overview (08/27/2024): Quit 2020 Assessment & Plan (11/06/2023 3:45 PM CDT): Social History Tobacco Use Smoking Status Former Current packs/day: 0.00 Average packs/day: 0.5 packs/day for 36.2 years (18.1 ttl pk-yrs) Types: Cigarettes Start date: 1983 Quit date: 10/13/2019 Years since quittin.0 Smokeless Tobacco Never Tobacco Comments socially - continue with abstinence - Lung cancer screening - up to date, had CT Chest 06/2023 Assessment & Plan (03/08/2022 12:20 PM CDT): She was advised to quit smoking; the risks of continued tobacco use discussed. Assessment & Plan (07/28/2020 4:59 PM FOREST TECHNOLOGY PROFESSOR): Nicotine replacement therapy and smoking cessation counseling discussed at length. The long-term risks posed to his health with continued usage were discussed at length. Assessment & Plan (03/31/2020 2:25 PM CDT): Nicotine replacement therapy and smoking cessation counseling discussed at length. The long-term risks posed to his health with continued usage were discussed at length. Assessment & Plan (01/08/2020 12:29 PM CDT): She was advised to quit smoking; the risks of continued tobacco use discussed. Assessment & Plan (05/21/2018 6:46 AM FOREST TECHNOLOGY PROFESSOR): Patient states she quit smoking three months ago and is now using a vapor cigarette. Assessment & Plan (04/10/2017 7:56 PM CDT): Nicotine replacement therapy and smoking cessation counseling discussed at length. The long-term risks posed to his health with continued usage were discussed at length. Atopic rhinitis 11/30/2013 Assessment & Plan (04/25/2022 5:50 PM CDT): Flonase /Zyrtec and add azelastine. Assessment & Plan (09/27/2021 6:13 PM CDT): Continue Flonase and Zyrtec. Call back for Astelin if needed. Assessment & Plan (04/10/2017 7:57 PM CDT): Stable on Zyrtec and fluticasone. Gastroesophageal reflux disease 11/30/2013 Assessment & Plan (08/27/2024 3:09 PM FOREST TECHNOLOGY PROFESSOR): - chronic condition, stable status - currently on Nexium 20 mg daily - continue current management - Continue on current meds, encouraged healthy diet and exercise - Discussed increased risk of cdif and vit B12 deficiency with long term care pharmacist use of PPI. Recommend the following changes: - Avoid trigger foods (such as spicy foods, fried foods, onions, peppermints, chocolate, high acid foods and juices, caffeinated beverages, carbonated beverages, and tomato based products). - Avoid alcohol take. - Avoid routine use of NSAIDs. - Avoid lying down for 2-3 hours after eating. - Weight loss encouraged. - Eat smaller meals. - Avoid tobacco use. - Sleep on left side. - may sleep with bed propped. - Avoid wearing tight clothing that puts pressure on the stomach. Assessment & Plan (02/20/2024 2:53 PM CDT): - chronic condition, stable status - currently on Nexium 20 mg daily - continue current management - Continue on current meds, encouraged healthy diet and exercise - Discussed increased risk of cdif and vit B12 deficiency with halfway use of PPI. Recommend the following changes: - Avoid trigger foods (such as spicy foods, fried foods, onions, peppermints, chocolate, high acid foods and juices, caffeinated beverages, carbonated beverages, and tomato based products). - Avoid alcohol take. - Avoid routine use of NSAIDs. - Avoid lying down for 2-3 hours after eating. - Weight loss encouraged. - Eat smaller meals. - Avoid tobacco use. - Sleep on left side. - may sleep with bed propped. - Avoid wearing tight clothing that puts pressure on the stomach. Assessment & Plan (11/06/2023 3:44 PM CDT): - chronic condition, stable status - currently on Nexium 20 mg daily - continue current management - Continue on current meds, encouraged healthy diet and exercise - Discussed increased risk of cdif and vit B12 deficiency with halfway use of PPI. Recommend the following changes: - Avoid trigger foods (such as spicy foods, fried foods, onions, peppermints, chocolate, high acid foods and juices, caffeinated beverages, carbonated beverages, and tomato based products). - Avoid alcohol take. - Avoid routine use of NSAIDs. - Avoid lying down for 2-3 hours after eating. - Weight loss encouraged. - Eat smaller meals. - Avoid tobacco use. - Sleep on left side. - may sleep with bed propped. - Avoid wearing tight clothing that puts pressure on the stomach. Assessment & Plan (05/26/2023 9:03 AM FOREST TECHNOLOGY PROFESSOR): Well controlled on esomeprazole Assessment & Plan (03/31/2020 2:25 PM CDT): Continue PPI. Assessment & Plan (07/26/2019 4:18 PM FOREST TECHNOLOGY PROFESSOR): Continue current PPI and the patient is aware of the long-term risks posed by chronic PPI usage. Magnesium level will be checked periodically. Calcium supplementation recommended. Assessment & Plan (10/10/2018 10:26 PM CDT): Continue current PPI and the patient is aware of the long-term risks posed by chronic PPI usage. Magnesium level will be checked periodically. Calcium supplementation recommended. Assessment & Plan (05/21/2018 6:47 AM FOREST TECHNOLOGY PROFESSOR): Patient was provided with educational material regarding reflux precautions. Patient was instructed to refrain from eating a meal approximately 3 hours prior to bedtime. Patient was instructed to elevate the head of the bed by approximately 8 inches. Patient was to refrain from consuming spicy greasy fatty foods, dairy products, and excessive caffeine use. Patient was also advised to increase water consumption. Patient was also instructed on weight reduction and exercise regimen. Patient was also instructed on the importance of compliance with medications. Assessment & Plan (04/10/2017 7:57 PM CDT): Continue current PPI and the patient is aware of the long-term risks posed by chronic PPI usage. Magnesium level will be checked periodically. Calcium supplementation recommended. Resolved Problems Problem Noted Date Diagnosed Date Resolved Date Acute non-recurrent pansinusitis 11/06/2024 01/29/2025 Pancolitis 08/25/2023 11/06/2023 Diarrhea of presumed infectious origin 08/11/2023 08/27/2024 Assessment & Plan (09/10/2023 1:27 PM FOREST TECHNOLOGY PROFESSOR): Vancomycin for presumed C diff recurrence. Probiotics hand hygiene and either consider ER or repeat visit here if worsens. Palpitations 08/07/2023 11/06/2023 Severe sepsis 06/24/2023 11/06/2023 Toxic metabolic encephalopathy 06/24/2023 11/06/2023 Hypopotassemia 06/24/2023 11/06/2023 Assessment & Plan (09/09/2023 9:18 AM FOREST TECHNOLOGY PROFESSOR): Improved with control of diarrhea. Repeat levels before next visit. V-tach 06/07/2023 11/06/2023 Assessment & Plan (06/09/2023 11:46 AM FOREST TECHNOLOGY PROFESSOR): Suspect multifactorial in setting of uncontrolled pain, acute blood loss anemia, and UTI. CT-PE was performed due to prior DVT/PE and hypoxia with poor opacification due to contrast interruption, limited evaluation but no large filling defect in the main PA, bilateral GGO's predominantly in the upper lungs, could represent organizing injury. Given her tachycardia has resolved with pain management, volume resuscitation, antibiotics for UTI, suspect these were primary drivers. Pain of left heel 05/26/2023 11/06/2023 Assessment & Plan (05/26/2023 9:04 AM FOREST TECHNOLOGY PROFESSOR): Unclear etiology. X-rays of her left foot today. Call back for results. Podiatry referral. Voltaren gel 4 times a day as oral anti-inflammatories not recommended with potential upcoming surgery with unknown date. Avoid aggravating activities. Ice her ankle twice daily. Anemia 11/25/2022 11/06/2023 Assessment & Plan (12/11/2022 8:23 AM CDT): Laboratory workup before next visit COVID-19 09/23/2022 11/06/2023 Assessment & Plan (09/23/2022 3:13 PM FOREST TECHNOLOGY PROFESSOR): Recommend fluids, rest, humidification if needed. She was instructed to call back if symptoms do not improved in a week, or if worsening ones arise. Education provided. Given tessalon perles and cough syrup for her symptoms Rest and hydrate and saline rinses F/u in 1 week If no improvement will consider doxy at that time given she was already given augmentin last month. Leg edema, left 08/05/2022 10/08/2022 Assessment & Plan (08/05/2022 11:56 AM FOREST TECHNOLOGY PROFESSOR): Left lower extremity edema. I have written a prescription for compression stocking. I suspect her left lower extremity pain may be due to her lower back or her left knee. Can follow-up p.r.n.. Fever and chills 06/21/2022 10/08/2022 Lumbar radiculopathy 05/20/2022 023 Weight gain 12/07/2020 11/06/2023 Assessment & Plan (12/07/2020 10:54 AM CDT): Diet exercise discussed. Thyroid normal July 2020. Acute recurrent frontal sinusitis 07/12/2020 10/08/2022 Assessment & Plan (08/30/2022 4:51 PM FOREST TECHNOLOGY PROFESSOR): Recommend fluids, rest, humidification if needed. She was instructed to call back if symptoms do not improved in a week, or if worsening ones arise. Education provided. covid and flu swab negative augmentin bid for 10 days F/u in 2 weeks if no improvement Assessment & Plan (07/12/2020 7:09 PM FOREST TECHNOLOGY PROFESSOR): Repeat Augmentin for 10 days and follow-up with her meter engineer if no improvement. Arthralgia of both hands 04/01/202005/2025 History of recent hospitalization 02/14/2020 11/06/2023 Assessment & Plan (02/14/2020 10:28 AM CDT): Recent hospitalization records reviewed with labs and diagnostics all detailed below Acute non-recurrent maxillary sinusitis 10/09/2019 10/09/2019 Assessment & Plan (10/09/2019 11:37 AM CDT): Initiating Augmentin along with Flonase and continuing daily antihistamine, daytime use of Sudafed. S/Es medication discussed, use of warm compresses, nasal rinses also advised in the interim. RTC p.r.n. Recurrent sinusitis 05/01/2018 05/31/20 18 Assessment & Plan (05/21/2018 6:46 AM FOREST TECHNOLOGY PROFESSOR): Patient will be placed on saline nasal irrigation daily to help promote mucociliary clearance. Fluticasone nasal spray two sprays in each nostril q.day Zyrtec 10 mg q.day Singulair 10 mg q.day Patient is to maintain compliance with medications. Should patient's symptoms continue to persist CT scan of the paranasal sinuses be required to help determine the extent of the condition. Healthcare maintenance 04/10/201708/27 Assessment & Plan (12/11/2022 8:23 AM CDT): Flu shot each April. Tetanus booster every 10 years. Mammogram scheduled. Colonoscopy due April 2025. Will see her back in 6 months with lab sooner if needed. Assessment & Plan (09/27/2021 6:15 PM CDT): Flu shot each April. Tetanus booster every 10 years. COVID booster recommended. Complete Shingrix vaccine. Mammogram yearly. Colonoscopy due April 2025. Will see her back in 6 months sooner if needed. Order new labs once current ones completed this week. Assessment & Plan (07/28/2020 5:01 PM FOREST TECHNOLOGY PROFESSOR): Flu shot each April. Tetanus Booster every 10 years. COVID -19 vaccine when available. Shingrix recommended. Colonoscopy due April 2025. Mammogram due February 2021. Will see her back in 3 months with lab sooner if needed. Assessment & Plan (07/26/2019 4:20 PM FOREST TECHNOLOGY PROFESSOR): Flu shot each April. Tetanus booster every 10 years. Shingrix recommended. Colonoscopy due April 2025. Mammogram yearly. Follow-up the first aid attendant for breast exam and pelvic exam as they direct. We will see her back in 1 year for physical and fasting lab sooner if needed. Assessment & Plan (10/10/2018 10:28 PM CDT): Flu shot each April. Tetanus booster every 10 years. Shingrix recommended. Follow up with her first aid attendant as they direct. Colonoscopy due April 2025. Will see her back in 12 months with lab sooner if needed. Assessment & Plan (04/10/2017 8:02 PM CDT): Flu shot each April. Tetanus booster every 10 years. Follow-up with the first aid attendant for breast exam and pelvic exam as they direct. Colonoscopy April 2015 showed diverticulosis. Will see her back in 6 months with lab sooner if needed. Macrocytosis without anemia 04/10/2017 11/06/2023 Overview (10/10/2018): Folate B12 TSH normal June 2018 Assessment & Plan (10/10/2018 10:27 PM CDT): Laboratory workup unrevealing. Chronic low back pain 03/17/20152022 Assessment & Plan (04/25/2022 5:49 PM CDT): Follow-up with her neurosurgeon as directed for repeat surgery. Assessment & Plan (02/28/2020 8:57 AM CDT): [place] refilled in office today as requested once again discussing the S/Es and proper use of medication she understands the importance of adhering to with dosage and keeping medication in a safe location. Follow-up every 3 months in order to maintain prescription refill. Assessment & Plan (04/10/2017 7:57 PM CDT): Continue Flexeril and hydrocodone p.r.n. Osteoarthritis of hand 09/02/201411/05 Anxiety state 11/30/2013 04/10/2017 Overview (10/20/2016): ANXIETY STATE NOS Assessment & Plan (04/10/2017 7:57 PM CDT): Continue buspirone and venlafaxine. Counseling recommended. Encounters Date Type Department Care Team Description 12:40 PM CDT Office Visit [facility] [address] [place] [address] Florence Rausch MD Brittle bones (Primary Dx); Failed back surgical syndrome; Osteopenia of multiple sites; Osteopenia, unspecified location 5 12:10 PM CDT Clinical Support [facility] [address] [place] [address] Brittle bones (Primary Dx); Osteopenia of left hip 5 Telephone [facility] [address] Medical Office [address] [place] [phone] Florence Rausch MD 5 1:00 PM CDT Therapy [facility] Physical [facility] [place] [address] Guanako Castano, PT S/P right rotator cuff repair (Primary Dx) 5 Plan of Care Documentation [facility] [place] [address] 5 Telephone [facility] [address] [place] [address] [address] [place] [phone] Boris Sweeney MD pain medication 5 Telephone [facility] [address] [place] [address] [address] [place] [phone] Boris Sweeney MD pain medication 5 Telephone [facility] [address] [place] [address] [address] [place] [phone] Boris Sweeney MD Med Refill 5 2:15 PM CDT Office Visit [facility] [address] [place] [address] [address] [place] [phone] Manish Perez NP S/P rotator cuff surgery (Primary Dx) 5 Orders Only [facility] [address] [place] [address] [address] [place] [phone] Manish Perez NP S/P rotator cuff surgery (Primary Dx) 5 Telephone [facility] [address] [place] [phone] Boris Sweeney MD pain med refill 5 Orders Only [facility] [address] [place] [phone] Michael Núñez PA 5 Telephone [facility] [address] [place] [address] [address] [place] [phone] Boris Sweeney MD Med Refill 5 Orders Only [facility] [address] [place] [address] [address] [place] [phone] Boris Sweeney MD S/P right rotator cuff repair (Primary Dx) 5 Telephone [facility] [address] [place] [address] [address] [place] [phone] Vik Ignacio ATC 5 7:55 AM CDT Anesthesia Event [facility] Operating Room [address] [place] [address] Kaushik Baker MD Reynolds, Dex Pennington MD 5 7:45 AM CDT - 5 9:35 AM CDT Surgery [facility] Operating Room [address] [place] [address] Boris Sweeney MD Right shoulder arthroscopy, distal claviculectomy including distal articular surface, decompression of subacromial space with partial acromioplasty with coracoacromial release, rotator cuff repair and biceps tenodesis--arthroscop y equipment, Arthrex ApolloRf vapor, Breg sling shot 2 sling with abduction pillow, NMES, Spider, Arthrex anchors, beach chair, polar care, biceps tenodesis set Arthrex, Arthroflex graft available 5 6:10 AM CDT - 5 12:07 PM CDT Hospital Encounter [facility] Operating Room [address] [place] [address] Boris Sweeney MD Arthritis of right acromioclavicular joint (Primary Dx); Biceps tendinitis on right; Impingement syndrome of right shoulder; Traumatic complete tear of right rotator cuff, initial encounter; Traumatic complete tear of right rotator cuff, initial encounter; Traumatic complete tear of right rotator cuff, initial encounter; Traumatic complete tear of right rotator cuff, initial encounter Discharge Disposition: Discharge to home or self care 5 Telephone [facility] Primary Care at [address] [phone] Yves Koch MD 5 Telephone [facility] Primary Care at [address] [phone] Yves Koch MD 5 Results Follow-Up [facility] Primary Care at [address] [phone] Yves Koch MD Lipid panel 5 Telephone [facility] Gastroenterology at [address] [place] [address] Toya Toro MD 5 10:45 AM CDT Office Visit [facility] Medical [facility] Primary Care at [address] [phone] Yves Koch MD Pre-op evaluation (Primary Dx); Colitis; Type 2 diabetes mellitus without complication, without long-term current use of insulin ([facility]); Personal history of tobacco use; Traumatic complete tear of right rotator cuff, sequela; CKD stage 3a, GFR 45-59 ml/min ([facility]); Mixed hyperlipidemia; Chronic diarrhea; Spinal stenosis of lumbar region with neurogenic claudication; Generalized anxiety disorder; Recurrent major depressive disorder, in partial remission 5 Orders Only [address] [phone] Yves Koch MD 5 Results Follow-Up [facility] [address] [place] [address] Florence Rausch MD Calcium, ionized, whole blood 5 6:05 PM CDT - 5 9:36 PM CDT Emergency [facility] Emergency Department [address] [place] [address] David Henderson MD Colitis (Primary Dx); Mixed hyperlipidemia Discharge Disposition: Discharge to home or self care 5 Results Follow-Up [facility] Medical [facility] Primary Care at [address] [phone] Yves Koch MD Hemoglobin A1c, Comprehensive metabolic panel, CBC with auto differential, Additional followed-up results: 4 5 8:45 AM CDT Lab [address] [phone] 5 7:56 AM CDT - 5 11:59 PM CDT Hospital Encounter [facility] [address] [place] [address] Pre-op evaluation Discharge Disposition: Discharge to home or self care 5 7:56 AM CDT - 5 11:59 PM CDT Hospital Encounter [facility] [address] [place] [address] Lumbar disc herniation with radiculopathy; Degenerative spondylolisthesis; Spinal stenosis of lumbar region with neurogenic claudication; Spinal stenosis of lumbar region with radiculopathy Discharge Disposition: Discharge to home or self care 5 7:56 AM CDT - 5 11:59 PM CDT Hospital Encounter [facility] [address] [place], [place] [id number] Pre-op evaluation Discharge Disposition: Discharge to home or self care 5 7:55 AM CDT Lab [address] [phone] Type 2 diabetes mellitus without complication, without long-term current use of insulin ([facility]); Pre-op evaluation; CKD stage 3a, GFR 45-59 ml/min ([facility]) from Last 3 Months Immunizations Immunization Administration Dates Next Due COVID-19 mRNA (PFIZER) 0.3 m L (30 mcg) vaccine (12 years and up) 05/03/2023 Influenza, Quadrivalent, Alejandra l Culture-based MDCK, Preservative Free, Antibiotic Free, Intramuscular 05/18/2020 Influenza, Quadrivalent, Spl it, Preservative Free, Intramuscular 05/03/2023,05/21/2022,04/27/2021,05/21 Influenza, Trivalent, IM (MDV) 04/16/2013,2011 Influenza, Trivalent, Recomb inant, Egg Free, Preservative Free, Antibiotic Free, IM (FLUBLOK) 05/22/2014,05/22/2014 Influenza, Trivalent, Split, Preservative Free, Intradermal 06/14/2015 Influenza, Unspecified 11/06/2024(Deferr ed: Patient Refused),07/17/2023(Deferred: Patient Refused),04/04/2022(Deferred: Patient Refused),03/26/2021(Deferred: Patient Refused),04/30/2020(Deferred: Patient Refused),04/21/2020(Deferred: Patient Refused),03/31/2020(Deferred: Patient Refused),07/17/2019,04/16/2019(Deferre d: Patient Refused),03/28/2019(Deferred: Patient Refused),04/21/2016 Moderna SARS-CoV-2 Monovalen t Vaccination (12+ YRS) 12/07/2020,11/04/2020 PPD TEST 10/11/2022,02/20/2017 Sars-cov-2 Covid-19 Mrna, Bi valent, Original/omicron Ba.1 05/03/2023 Td, adsorbed 11/14/2006 Tdap 01/17/2021,05/22/2014,05/22/2014 ZOSTER Recombinant 10/15/2021,08/13/2021 Surgical History Surgery Date Site/Laterality Comments TONSILLECTOMY Tonsillectomy CHOLECYSTECTOMY Cholecystectomy APPENDECTOMY Appendectomy REDUCTION MAMMOPLASTY 07/17/2002 - 07/16/2003 breast reduction OTHER SURGICAL HISTORY R Knee Staph Infection 10/24: I/D OTHER SURGICAL HISTORY Septoplasty, turbinate reduction: Dr Marte 03/24 OTHER SURGICAL HISTORY 07/17/2004 - 07/16/2005 R foot surgery, Heel Masses, Dr Martini OTHER SURGICAL HISTORY [facility] 07/17/2013 - 07/16/2014 ear infection, [facility] KNEE ARTHROPLASTY Right Knee replacement REDUCTION MAMMAPLASTY URETHRAL SLING 05/17/2017 - 06/15/2017 Dr Garcia SINUS SURGERY Deviated septum repair and Sinus surgery [facility] CT GUIDED TRANSFORAMINAL EPIDURAL INJECTION LUMBAR SACRAL FIRST LEVEL 04/14/2021 N/A CT GUIDED TRANSFORAMINAL EPIDURAL INJECTION LUMBAR SACRAL FIRST LEVEL 04/14/2021 N/A JOINT REPLACEMENT 2009 SPINE SURGERY 09/06/2021 Multi level fusions, Full cage lumbar/sacral spine TUBAL LIGATION 11/23/1991 BLADDER SURGERY LUMBAR SPINE SURGERY 05/23/2022 Dr Tello; 2nd procedure 05/25/2022 Medical History Medical History Date Comments Hx Other Medical Dislocated Rt k nee x 2-High tibial Hx Other Medical Rt foot mass - benign x 7 Hx Other Medical breast reductio n Hx Other Medical herpes genitali s Sinusitis sinusitis Hx Other Medical migraine Hx Other Medical R TKR 11/22 Hx Other Medical R Knee Cyst Rem oval 09/23 Hx Other Medical R Knee Staph In fection 10/24 Hx Other Medical Septoplasty, tu rbinate reduction Hx Other Medical 01-FIRST OFFICER Hx Other Medical Generalized anx iety Disorder with panick attacks Atopic rhinitis Allergic Rhiniti s Hx Other Medical Recurrent Genit al herpes Hx Other Medical tummy tuck Hx Other Medical upper respirato ry infection, sinus infection Hx Other Medical 02-ORTHOPEDIST Hx Other Medical fell-wrist pain Hx Other Medical ear infection, sinus infection Hx Other Medical fibromyalgia Hx Other Medical back pain; Comm ents: [facility] [place] 11/19/2014 - Hx Other Medical high cholestero l; Comments: [facility] [place] 11/19/2014 - Hx Other Medical osteoarthritis; Comments: [facility] [place] 11/19/2014 - Hx Other Medical RHEUM- Alteri Fibrocystic breast Smoking Anxiety Depression Bipolar 1 disorder (HCC) Thyroid disease GERD (gastroesophageal reflux disease) PONV (postoperative nausea and vomiting) Arthritis Motion sickness Chronic kidney disease Type 2 diabetes mellitus Colitis Clostridium difficile infection Pneumonia June 2023 do uble pneumonia Family History Medical History Relation Name Comments Other Brother 2 Alive and well; Arthritis Father Omer Hypertension Father Omer Hypertension; Other Father Omer Alive and well; Heart attack Maternal Grandfather Benjamin Osteoporosis Mother Osteoporosis; Other Mother Alive and well; Skin cancer Mother cancer, skin; Arthritis Other 1 Family history of arthritis; Other Other 2 Family history of high blood pressure; Stroke Paternal Grandfather Wilian Stroke; Alzheimer's disease Paternal Grandmother Shaista Hamilton Osteoporosis Paternal Grandmother Shaista Hamilton Anesthesia problems Neg Hx Breast cancer Neg Hx Hip fracture Neg Hx Ovarian cancer Neg Hx Thyroid cancer Neg Hx Relation Name Status Comments Brother 1 Alive Brother 2 Father Omer Alive Maternal Grandfather Benjamin Alive Mother Alive Other 1 Other 2 Paternal Grandfather Wilian Paternal Grandmother Shaista Hamilton Alive Social History Tobacco Use Types Packs/Day Years Used Date Smoking Tobacco: Former Cigarettes 0.5 36.2 1 984 - 10/13/2019 Smokeless Tobacco: Never Tobacco Cessation:Counseling Given: Not Answered Comments:socially Alcohol Use Standard Drinks/Week Comments Not Currently [...] materials from doctor or pharmacy Never 08/16/2023 [facility] Utilities Answer Date Recorded In the past 12 months has e [employer], gas, oil, or water [employer] threatened to shut off services in your [...] often do you attend chur ch or congregation services? Never 08/28/2023 Do you belong to any clubs o r organizations such as advent groups, unions, fraternal or athletic groups, or school groups? No 08/28/2023 How often do you attend meet ings of the clubs or organizations you belong to? Never 08/28/2023 Are you , , di vorced, , never , or living with a partner? 08/28/2023 Overall Financial Resource Strain (CARDIA) Answe r [...] place to sleep or slept in a alf (including now)? No 08/28/2023 AUDIT-C Answer Date Recorded Q1: How often do you have a drink containing alcohol? Never 03/03/2025 Q2: How many drinks containi ng alcohol do you have on a typical day when you are drinking? Patient does not drink Q3: How often do you have si x or more drinks on one occasion? Never 03/03/2025 Personal Safety Answer Date Recorded Have you ever been in or are you currently in a harmful physical or emotional relationship or is someone making you feel afraid or unsafe? Denies 02/11/2025 Education Answer Date Recorded What is the highest level of school you have completed or the highest degree you have received? 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4 oz) 03/28/2025 12:45 PM CDT Height 171.2 cm (5' 7.4) 03/28/2025 12:45 PM CD T Body Mass Index 33.34 03/28/2025 12:45 PM CDT Plan of Treatment Upcoming Encounters Date Type Department Care Team (Late st Contact Info) Description 06/17/2025 12:00 PM FOREST TECHNOLOGY PROFESSOR Hospital Encounter [address] [address] Toya Toro MD [address] [place] [id number] 06/17/2025 12:00 PM FOREST TECHNOLOGY PROFESSOR - 06/17/2025 12:30 PM FOREST TECHNOLOGY PROFESSOR Surgery [address] [address] Toya Toro MD [address] [place] [address] COLONOSCOPY Scheduled Procedures Name Priority Associated Diagnoses Date/Ti me COLONOSCOPY Family history of colon cancer History of colonic polyps Colitis Encounter for screening colonoscopy 06/17/2025 12:00 PM FOREST TECHNOLOGY PROFESSOR Health Maintenance Due Date Last Done Comments Dilated Eye Exam 1965 Foot Exam 1965 Pneumococcal vaccine <65 (1 of 2 - PCV) 1986 Albumin Creatinine Ratio, Urine 10/08/2023 3 Breast Cancer Screening-Mammogram 12/21/2023 12/20/2022, 03/11/2020, 07/26/2017, Additional history exists Regular Well Visit/Exam 18-64 02/19/2025, 11/25/2022, 09/27/2021, Additional history exists Covid-19 Vaccine (4 - 2024-2 6 season) 2025 05/03/2023, 05/03/2023, 12/07/2020, Additional history exists Influenza Vaccine (#1) 2025 , 05/21/2022, 04/27/2021, Additional history exists Colon Cancer Screening-Colonoscopy 04/28/2025 04/28/2015, 04/28/2015 Hemoglobin A1C 07/25/2025 01/22/2025, 08/17, 02/21/2024, Additional history exists Cervical Cancer Screening 09/16/2025 09/16/2024 Lipid Panel 01/26/2026 01/26/2025, 08/17, 11/15/2023, Additional history exists eGFR 01/26/2026 01/26/2025, 0703/2025, 09/25/2024, Additional history exists Depression Screening 01/29/2026 01/29/2025, 11/06/2024, 08/27/2024, Additional history exists Osteoporosis Screening-Bone Density Scan 03/28/2027 03/28/2025, 03/20/2024, 05/10/2023, Additional history exists DTaP/Tdap/Td Vaccine (4 - Td or Tdap) 01/17/2031 01/17/2021, 05/22/2014, 05/22/2014, Additional history exists Colon Cancer Screening-CT Colonography Discontinued 04/28/2015, 04/28/2015 Colon Cancer Screening-DNA Stool Discontinued 04/28/20 15, 04/28/2015 Colon Cancer Screening-FIT Discontinued 04/28/2015, Colon Cancer Screening-Sigmoidoscopy Discontinued 04/28/2015, 04/28/2015 Hepatitis C Screening Completed 07/11/2018 Zoster Vaccine Completed 10/15/2021, 08/13/2021 Hepatitis B Screening Completed 11/15/2023 Goals Goal Patient Goal Type Associated Problems Recent Progress Patient-Stated? Author CCM Chronic Pain Care Plan Chronic Care Management No Aida Rust RN Note: Problem: Chronic Pain Goals: 1. Minimize [...] on stairs Contact your local community or [facility] for information on exercise, fall prevention programs, or options for improving home safety. Medical Devices Implanted Type Area Air Chipper Device Identifier Shelf Expiration Date Model / Serial / Lot Musculoskeletal Transplant Allograft Putty Freeze Dried Filler 10cc Bone Void Dbx [id number] - [id number] - [id number] Implanted:Qty: 1 on 05/20/2022 by Jerod Tello MD at [facility] Spine Lumbar Musculoskeletal Transplant 02/19/2024 [id number] / [id number] / Nuvasive Inc Spacer 3dp Interfixated Alif [id number] 15 Deg 6055834q4 - [id number] Implanted:Qty: 1 on 05/20/2022 by Jerod Tello MD at [facility] Spine Lumbar Nuvasive Inc 11/23/2026 [id number] / / Nuvasive Inc Modulus [id number] 10d Xl Wide Cage Spinal Sterile Latex Free 3255050q4 - [id number] Implanted:Qty: 1 on 05/20/2022 by Jerod Tello MD at [facility] Spine Lumbar Nuvasive Inc 11/25/2026 [id number] / / Musculoskeletal Transplant Allograft Putty Freeze Dried Filler 10cc Bone Void Dbx 198737 - [id number] - [id number] Implanted:Qty: 1 on 05/25/2022 by Jerod Tello MD at [facility] N/A: Spine Lumbar Musculoskeletal Transplant 02/23/2024 [id number] / [id number] / Allosource Crushed Fresh Frozen Cancellous 1-4mm Graft 15ml Bone [id number] - [id number] Implanted:Qty: 1 on 05/25/2022 by Jerod Tello MD at [facility] N/A: Spine Lumbar Allosource 10/23/2022 [id number] / / [id number] Depuy Synthes Spine Expedium 1 Inner Monoaxial Spine Screw Set Titanium [id number] - [id number] Implanted:Qty: 6 on 05/25/2022 by Jerod Tello MD at [facility] N/A: Spine Lumbar Depuy Synthes Spine [id number] / / Depuy Synthes Spine Expedium 7mm 45mm 1 Innie Polyaxial Spine Screw Bone Titanium [id number] - [id number] Implanted:Qty: 5 on 05/25/2022 by Jerod Tello MD at [facility] N/A: Spine Lumbar Depuy Synthes Spine [id number] / / Depuy Synthes Spine Expedium 7mm 50mm 1 Innie Polyaxial Spine Screw Bone Titanium [id number] - [id number] Implanted:Qty: 1 on 05/25/2022 by Jerod Tello MD at [facility] N/A: Spine Lumbar Depuy Synthes Spine [id number] / / Depuy Synthes Spine Expedium 5.5mm 55mm Line Prebent Dorian Spinal Titanium Nonsterile [id number] - [id number] Implanted:Qty: 2 on 05/25/2022 by Jerod Tello MD at [facility] N/A: Spine Lumbar Depuy Synthes Spine [id number] / / Cerapedics Inc Graft Bone Filler Peptide Enhanced Syr I Factor 1cc Putty 700-343 - [id number] Implanted:Qty: 1 on 06/05/2023 by Neo Botello MD PhD at [facility] Celiro [id number] 09/13/2025 7 -010 / / [id number] Medtronic Inc Kit Graft Bone Sponge Xlg Infuse 8cc Granules [id number] - [id number] Implanted:Qty: 1 on 06/05/2023 by Neo Botello MD PhD at [facility] Medtronic Inc [id number] 12/15/2024 75 [id number] / / [id number] Celiro Allograft Bone Putty 2.5cc 700-025 - [id number] Implanted:Qty: 1 on 06/05/2023 by Neo Botello MD PhD at [facility] Celiro [id number] 09/13/2025 7 -025 / / [id number] Depuy Synthes Spine Bowti 24mm Spine Staple Bone Titanium [id number] - [id number] Implanted:Qty: 1 on 06/05/2023 by Neo Botello MD PhD at [facility] Depuy Synthes Spine [id number] / / Depuy Synthes Spine Bowti 30mm Antibackout Spine Anterior Screw Bone Titanium [id number] - [id number] Implanted:Qty: 1 on 06/05/2023 by Neo Botello MD PhD at [facility] Depuy Synthes Spine [id number] / / Globus Medical [id number] Fortify [id number] 20mm Spacer Spinal Nonsterile Latex Free - [id number] Implanted:Qty: 1 on 06/05/2023 by Neo Botello MD PhD at [facility] Gl[employer]us Medical 151.1 53 / / Globus Medical [id number] Fortify 42w53ff Footprint Upper Endplate Sagittal Profile 4d 25mm Latex Free - [id number] Implanted:Qty: 1 on 06/05/2023 by Neo Botello MD PhD at [facility] [employer] Medical 151.4 33 / / Globus Medical 398266 Fortify 23o59uy Footprint Lower Endplate Sagittal Profile 16d 25 Latex Free - [id number] Implanted:Qty: 1 on 06/05/2023 by Neo Botello MD PhD at [facility] GlobGlassPoint Solar Medical 151.4 86 / / Globus Medical [id number] [place] 25mm Fixed Angle Spine Screw Bone - [id number] Implanted:Qty: 1 on 06/05/2023 by Neo Botello MD PhD at [facility] [email or web address] Medical 176.1 25 / / Globus Medical Ronald Thread Blunt Tip Wire Fixation 6133.0399s - [id number] Implanted:Qty: 1 on 06/12/2023 at [facility] N/A: Spine Lumbar Globus Medical 6133.0399S / / Medtronic Inc Kit Graft Bone Sponge Xlg Infuse 8cc Granules [id number] - [id number] Implanted:Qty: 1 on 06/12/2023 by Neo Botello MD PhD at [facility] N/A: Spine Lumbar Medtronic Inc [id number] / / Cerapedics Inc Allograft Bone Putty 2.5cc 700-025 - [id number] Implanted:Qty: 1 on 06/12/2023 by Neo Botello MD PhD at [facility] N/A: Spine Lumbar Cerapedics Inc 700-025 / / Si-Bone Kit Spinal Sacroiliac Joint Ifuse Bedrock Muscoda 10.5x90mm 597242nt - [id number] - [id number] Implanted:Qty: 1 on 06/12/2023 by Neo Botello MD PhD at [facility] N/A: Spine Lumbar Si-Bone [id number] 02/29/2028 846884NC / [id number] 3-072 / Si-Bone Kit Spinal Sacroiliac Joint Ifuse Bedrock Muscoda 10.5x90mm 072476mi - [id number] - [id number] Implanted:Qty: 1 on 06/12/2023 by Neo Botello MD PhD at [facility] N/A: Spine Lumbar Si-Bone [id number] 02/29/2028 659390MC / [id number] 3-101 / Globus Medical Creo Amp 6.5mm 45mm Cannulated Modular Spine Screw Bone 1067.4645 - [id number] Implanted:Qty: 2 on 06/12/2023 by Neo Botello MD PhD at [facility] N/A: Spine Lumbar Globus Medical 1067.4645 / / Globus Medical Creo 6.5mm 50mm Cannulated Modular Spine Screw Bone 1067.4650 - [id number] Implanted:Qty: 2 on 06/12/2023 by Neo Botello MD PhD at [facility] N/A: Spine Lumbar Globus Medical 1067.4650 / / Globus Medical Creo 7.5mm 50mm Cannulated Modular Spine Screw Bone 1067.4750 - [id number] Implanted:Qty: 2 on 06/12/2023 by Neo Botello MD PhD at [facility] N/A: Spine Lumbar Globus Medical 1067.4750 / / Globus Medical Creo 7.5mm 30mm Cannulated Modular Spine Screw Bone 1067.4730 - [id number] Implanted:Qty: 1 on 06/12/2023 by Neo Botello MD PhD at [facility] N/A: Spine Lumbar Globus Medical 1067.4730 / / Globus Medical Creo Amp 7.5mm 25mm Cannulated Modular Spine Screw Bone 1067.4725 - [id number] Implanted:Qty: 1 on 06/12/2023 by Neo Botello MD PhD at [facility] N/A: Spine Lumbar Globus Medical 1067.4725 / / Globus Medical Quin [id number] 5-20d 20mm Spacer Spinal 1122.1055 - [id number] Implanted:Qty: 1 on 06/12/2023 by Neo Botello MD PhD at [facility] N/A: Spine Lumbar Globus Medical 1122.1055 / / Globus Medical Screw Spinal Anterior Lumbar Self Drilling Solid [place] 5.5x30mm Titanium 176.730 - [id number] Implanted:Qty: 2 on 06/12/2023 by Neo Botello MD PhD at [facility] N/A: Spine Lumbar Globus Medical 176.730 / / Globus Medical 1134.518 Creo Mis 5.5mm 180mm Straight Dorian Spinal Titanium - [id number] Implanted:Qty: 2 on 06/12/2023 by Neo Botello MD PhD at [facility] N/A: Spine Lumbar Globus Medical 1134.5180 / / Globus Medical Creo Amp 7.5mm 40mm Cannulated Modular Spine Screw Bone 1067.4740 - [id number] Implanted:Qty: 2 on 06/12/2023 by Neo Botello MD PhD at [facility] N/A: Spine Lumbar Globus Medical 1067.4740 / / Globus Medical [id number] Rise-L [id number] 3d Lordotic Spacer Spinal Nonsterile - [id number] Implanted:Qty: 1 on 06/12/2023 by Neo Botello MD PhD at [facility] N/A: Spine Lumbar Globus Medical 193.605 / / Globus Medical 1134.001 Creo Spinal Cap Locking Nonsterile Mis - [id number] Implanted:Qty: 10 on 06/12/2023 by Neo Botello MD PhD at [facility] N/A: Spine Lumbar Globus Medical 1134.0010 / / Globus Medical 1134.01 Creo Mis 30mm Modular Polyaxial Tulip Head Screw Bone - [id number] Implanted:Qty: 10 on 06/12/2023 by Neo Botello MD PhD at [facility] N/A: Spine Lumbar Globus Medical 1134.0100 / / Arthrex Inc Swivelock C 4.75mm 19.1mm Closed Eyelet Vent Ancram Suture Ar-2324bcc - [id number] Implanted:Qty: 1 on 02/11/2025 by Boris Sweeney MD at [facility] Right: Shoulder Arthrex Inc 09/13/2028 AR-2324BCC / / [id number] Arthrex Inc Swivelock C 4.75mm 19.1mm Closed Eyelet Vent Ancram Suture Ar-2324bcctt - [id number] Implanted:Qty: 1 on 02/11/2025 by Boris Sweeney MD at [facility] Right: Shoulder Arthrex Inc 06/15/2028 AR-2324BCC TT / / [id number] Arthrex Inc Swivelock C 4.75mm 19.1mm Close Eyelet Tape Loop Vent Ancram Ar-2324bcct - [id number] Implanted:Qty: 1 on 02/11/2025 by Boris Sweeney MD at [facility] Right: Shoulder Arthrex Inc 07/16/2028 AR-2324BCC T / / [id number] Arthrex Inc Swivelock C 4.75mm 19.1mm Closed Eyelet Vent Ancram Suture Ar-2324bcc - [id number] Implanted:Qty: 1 on 02/11/2025 by Boris Sweeney MD at [facility] Right: Shoulder Arthrex Inc 09/13/2028 AR-2324BCC / / [id number] Procedures Procedure Name Priority Date/Time Associated Diagnosis Comments DEXA TBS AXIAL SKELETON BONE DENSITY 1 OR MORE SITES Schedule Routine, Read Routine (OP Routine) 03/28/2025 12:35 PM CDT Osteopenia of left hip POCT GLUCOSE DEVICE Routine 02/11/2025 9:38 AM CDT DC AN ELECTIVE ENDOTRACHEAL AIRWAY Routine 02/11/2025 8:16 AM CDT ARTHROSCOPY SHOULDER 02/11/2025 7:55 AM CDT Traumatic complete tear of right rotator cuff, initial encounter Impingement syndrome of right shoulder Arthritis of right acromioclavicular joint Biceps tendinitis on right Special Needs arthroscopy equipment, Arthrex ApolloRf vapor, Breg sling shot 2 sling with abduction pillow, NMES, Spider, Arthrex anchors, beach chair, polar care, biceps tenodesis set Arthrex, Arthroflex graft available ANESTHESIA PERIPHERAL BLOCK Routine 02/11/2025 7:29 AM CDT POCT GLUCOSE DEVICE Routine 02/11/2025 6:42 AM CDT PAIN BLOCK Routine 02/11/2025 6:[address] ABDOMEN PELVIS W CONTRAST ED 01/26/2025 8:05 PM CDT LIPID PANEL Routine 01/26/2025 6:35 PM CDT Mixed hyperlipidemia EGFR STAT 01/26/2025 6:35 PM CDT DIFFERENTIAL AUTO STAT 01/26/2025 6:35 PM CDT TSH STAT 01/26/2025 6:35 PM CDT PHOSPHORUS STAT 01/26/2025 6:35 PM CDT MAGNESIUM Routine 01/26/2025 6:35 PM CDT LIPASE STAT 01/26/2025 6:35 PM CDT COMPREHENSIVE METABOLIC PANEL STAT 01/26/2025 6:35 PM CDT CBC WITH AUTO DIFFERENTIAL STAT 01/26/2025 6:35 PM CDT NOROVIRUS PCR STAT 01/26/2025 6:35 PM CDT STOOL CULTURE STAT 01/26/2025 6:35 PM CDT C. DIFFICILE TESTING STAT 01/26/2025 6:35 PM CDT CRYPTOSPORIDIUM AND GIARDIA ANTIGEN ASSAY Timed 01/26/2025 6:32 PM CDT XR LUMBAR SPINE AP LAT FLEX EX Schedule Routine, Read Routine (OP Routine) 01/22/2025 8:26 AM CDT Lumbar disc herniation with radiculopathy Degenerative spondylolisthesis Spinal stenosis of lumbar region with neurogenic claudication Spinal stenosis of lumbar region with radiculopathy XR CHEST PA LATERAL 2 VIEWS Schedule Routine, Read Routine (OP Routine) 01/22/2025 8:25 AM CDT Pre-op evaluation ECG 12-LEAD Routine 01/22/2025 8:12 AM CDT Pre-op evaluation EGFR Routine 01/22/2025 8:00 AM CDT Pre-op evaluation CKD stage 3a, GFR 45-59 ml/min (HCC) DIFFERENTIAL AUTO Routine 01/22/2025 8:00 AM CDT Pre-op evaluation CALCIUM,IONIZED, WHOLE BLOOD Routine 01/22/2025 8:00 AM CDT CBC WITH AUTO DIFFERENTIAL Routine 01/22/2025 8:00 AM CDT Pre-op evaluation COMPREHENSIVE METABOLIC PANEL Routine 01/22/2025 8:00 AM CDT Pre-op evaluation CKD stage 3a, GFR 45-59 ml/min (HCC) HEMOGLOBIN A1C Routine 01/22/2025 8:00 AM CDT Type 2 diabetes mellitus without complication, without long-term current use of insulin (HCC) SCREENING MAMMOGRAM BILATERAL W ERIC Schedule Routine, Read Routine (OP Routine) 12/20/2022 9:25 AM CDT Screening mammogram, encounter for ALBUMIN CREATININE RATIO, URINE Routine 10/07/2022 2:56 PM CDT IFG (impaired fasting glucose) HEPATITIS C AB REFLEX RNA QUANT PCR Routine 07/11/2018 8:46 AM 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 Based on machine cross-calibration and precision studies the least significant changes of this densitometer is 0.024 g/cm2 at the spine, 0.020 g/cm2 at the total proximal femur, and 0.014g/cm2 at the forearm. HISTORY: This is a 59 y.o. postmenopausal female with a history of low bone mass. She reports that she quit smoking about 5 years ago. Her smoking use included cigarettes. She started smoking about 41 years ago. She has a 18.1 pack-year smoking history. She has never used smokeless tobacco. Currently on treatment with calcium and vitamin D, previously treated with abaloparatide (Tymlos), and current complaint of arm pain, back pain, neck pain, and leg pain. INDICATIONS: Menopause status, history of prior vertebral fracture, and history of low bone mass. FINDINGS: BONE MINERAL DENSITY OF THE PROXIMAL FEMUR Bone Mineral Density (BMD) of the left hip total was found to be 0.899 gm/cm2. This corresponds to a T-score standard deviations from the mean of young adults of -0.4. Femoral neck is 0.672 gm/cm2 with a T-score (standard deviations from the mean of young adults) of -1.6. When compared to the previous study of 03/20/2024 there has been no significant changes in bone density. BONE MINERAL DENSITY OF THE FOREARM Bone Mineral density (BMD) of the right proximal 1/3 of the radius measures 0.736 gm/cm2. This corresponds to a T-score (standard deviations from the mean of young adults) of 0.7. When compared to the previous study of 03/20/2024 there has been a 0.033 gm/cm (4.6%) increase in bone density that is considered significant. A forearm bone density study was performed instead of a spine study due to history of spinal surgery. SUMMARY: Bone mineral density shows evidence of low bone mass at the proximal femur and moderately increased fracture risk (Osteopenia). There has been a significant increase in bone density since previous measurement. The lumbar spine Trabecular Bone Score TBS was not obtained due to the bone mineral density of the spine not being acquired. ADDITIONAL COMMENTS: Postmenopausal Women and Men Over 50: Diagnostic criteria: Osteoporosis: BMD at or below -2.5 T-score; Osteopenia (low bone mass): BMD between -1.0 and -2.5 T-score. If the patient has a history of a fragility fracture, a fracture that occurred with trauma equivalent to a fall from a standing position or less, then the diagnosis is osteoporosis regardless of bone density. The history and data sections of the bone mineral density scan were prepared by Arina Amor) JUAN A who is accredited by the International Society of Clinical Densitometry. The overall patient assessment and scan interpretation were performed by Florence Rausch M.D. who is certified by the International Society of Clinical Densitometry. [id number] us Florence Rausch MD IMG DXA PROCEDURES Final R esult * POCT glucose (02/11/2025 9:38 AM CDT) Glucose, POC 149 70 - 199 mg/dL Blood 02/11/2025 9:38 AM CDT 02/11/2025 9:38 AM CDT us Boris Sweeney MD LAB POCT ORDERABLES - DEVICE Final Result Performing Organization Address City/State/[facility] Co de Phone Number [facility] [address] [place] [address] Department [place] [address] * DC AN ELECTIVE ENDOTRACHEAL AIRWAY (02/11/2025 8:16 AM CDT) Narrative Denys Romano CRNA - 02/11/2025 8:16 AM CDT Denys Romano CRNA 02/11/2025 8:18 AM Airway Patient location: OR Urgency: elective Date/time: 02/11/2025 8:01 AM Indications for airway management: anesthesia Difficult airway: no Staff: Placed by: FINANCIAL DIRECTOR: Denys Romano CRNA Emergent airway documentation: Risks and benefits discussed: yes Consent obtained: yes Consent given by: patient Airway prep: Preoxygenated: yes Mask difficulty assessment: 0 - not attempted Spontaneous ventilation during airway: absent Sedation level during airway: GA Final airway details: Final airway type: endotracheal airway Tube type: ETT ETT size: 7.0 mm Cuffed: yes Technique used for successful ETT placement: video laryngoscopy Devices/Methods used in placement: stylet Insertion site: oral Video blade type: Alanis Blade size: 3 Cormack-Lehane (video): grade I - full view of glottis Initial cuff pressure: 25 cm H2O Cuff inflated with: air ETT to teeth: 22 cm Placement verified by: auscultation and CO2 detection Airway secured with: silk tape Number of attempts: 1 Additional comments: Smooth atraumatic intubation. us Kaushik Baker MD ANESTHESIA ORDERABLES Final Result * BW IP ANE LDA PERIPHERAL NERVE CATHETER (02/11/2025 7:29 AM CDT) Narrative Kaushik Baker MD - 02/11/2025 7:29 AM CDT Kaushik Baker MD 02/11/2025 7:30 AM Peripheral Block Patient location during procedure: block room Start time: 02/11/2025 7:20 AM End time: 02/11/2025 7:29 AM Reason for block: post-op pain management per surgeon request Ultrasound image in chart or stored: yes Block type: catheter continuous infusion Laterality: right Block type: brachial plexus - interscalene Staff: Placed by: Anesthesiologist: Kaushik Baker MD Procedure prep: Preprocedure checklist: patient identified, procedure contraindications assessed, site marked, procedure consent, surgical consent, IV checked, risks, benefits and alternatives discussed, monitors and equipment checked and timeout performed Patient position: sitting Procedure performed while patient: sedate with meaningful contact Monitoring: ECG, oximetry and blood pressure Supplemental O2: nasal cannula Prep solution: chlorhexidine/alcohol PPE: sterile gloves, provider hat/mask, sterile drape and sterile probe cover and gel Peripheral nerve block: Technique: ultrasound guided Needle gauge: 18 G Injection assessment: injection made incrementally with constant monitoring, local visualized surrounding nerve on ultrasound, negative aspiration for heme, no paresthesias noted, normal resistance to injection and see flowsheet for medication details Catheter: Catheter type: 20g non-stimulating catheter and catheter over needle Catheter over needle length: 51 Catheter depth at skin: 12 cm Catheter placement details: catheter position confirmed by ultrasound, no aspiration of heme, negative test dose, mastisol, steri-strips, dermal adhesive and occlusive dressing applied Assessment: Block success: complete Events: patient tolerated procedure well with no complications Kaushik Baker MD ANESTHESIA ORDERABLES Final Result * POCT glucose (02/11/2025 6:42 AM CDT) Glucose, POC 112 70 - 199 mg/dL Blood 02/11/2025 6:42 AM CDT 02/11/2025 6:42 AM CDT Boris Sweeney MD LAB POCT ORDERABLES - DEVICE Final Result S[facility]I [facility] [place] 1 [facility] Department [place] [address] * CT Abdomen Pelvis W Contrast (01/26/2025 8:05 PM CDT) Anatomical Region Laterality Modality Body N/A Computed Tomogra phy 01/26/2025 8:16 PM CDT Narrative 01/26/2025 8:23 PM CDT EXAM DESCRIPTION: CT ABDOMEN PELVIS W CONTRAST REASON FOR STUDY: Diarrhea, diarrhea x1 week, hx c. diff C/o diarrhea intermittently x 1 week. Hx of cholecystectomy, appendectomy, back surgery, c-diff TECHNIQUE: CT scan of the abdomen and pelvis performed with intravenous and without oral contrast using helical scanning technique with dynamic intravenous contrast injection. Reconstructed coronal and sagittal MPR images reviewed. All images stored on PACS. Automated exposure control was used as a dose optimization technique for this examination. CONTRAST TYPE/DOSE: 100mL of IOVERSOL 350 MG IODINE/ML INTRAVENOUS SYRINGE injected via intravenous COMPARISON: 08/25/2023 FINDINGS: LOWER CHEST: No significant pulmonary abnormalities. No effusion. Large coarse calcifications within the right breast may reflect sequela of prior trauma. Correlate with patient history. LIVER: Normal size. No identified cystic or solid masses. GALLBLADDER: Surgically absent. BILE DUCTS: No intrahepatic or extrahepatic ductal dilatation. SPLEEN: Normal size. No focal lesions. PANCREAS: No identified cystic or solid masses. No significant calcifications. No adjacent inflammation or peripancreatic fluid collections. Pancreatic duct not dilated. ADRENALS: Normal. KIDNEYS/URINARY TRACT: 1 cm cyst right kidney. No visualized stones. No hydronephrosis or hydroureter. Symmetric enhancement. Urinary bladder is unremarkable. GI: There is diverticulosis predominantly involving the descending and sigmoid colon. There is thickening of the wall of the descending and sigmoid colon with some stranding in the surrounding fat suggesting inflammatory or infectious colitis. There is also thickening of the wall of the rectum with surrounding perirectal stranding suggesting proctitis. No bowel obstruction or abscess. Multiple air-fluid levels are noted within the colon consistent with the patient's diarrheal state. The appendix is surgically absent. PERITONEUM: No ascites or free air. RETROPERITONEUM: No mass or adenopathy. REPRODUCTIVE: No significant abnormality. VASCULATURE: Atherosclerotic disease in the aorta and iliacs MUSCULOSKELETAL: Multilevel degenerative changes are present without fracture. No concerning lesions are present. Postoperative changes of prior fusion posteriorly within the lumbar spine from L2 through S1. OTHER: No other abnormality. IMPRESSION: 1. Thickening of the wall of the descending and sigmoid colon with some stranding in the surrounding fat suggesting inflammatory or infectious colitis. There is also thickening of the wall of the rectum with surrounding perirectal stranding suggesting proctitis. No bowel obstruction or abscess. 2. Multiple air-fluid levels are noted within the colon consistent with the patient's diarrheal state. 3. Surgical absence of the gallbladder. 4. 1 cm cyst right kidney. 5. Large coarse calcifications within the right breast may reflect sequela of prior trauma. Correlate with patient history. THIS IS AN ELECTRONICALLY VERIFIED FINAL REPORT 01/26/2025 8:23 PM - Electronically signed by Bo Ramsey M.D. KT: FATOU Report ID: [id number] Reading Location: [id number] Procedure Note Bo Ramsey MD - 01/26/2025 EXAM DESCRIPTION: CT ABDOMEN PELVIS W CONTRAST REASON FOR STUDY: Diarrhea, diarrhea x1 week, hx c. diff C/o diarrhea intermittently x 1 week. Hx of cholecystectomy,appendectomy, back surgery, c-diff TECHNIQUE: CT scan of the abdomen and pelvis performed with intravenousand without oral contrast using helical scanning technique with dynamic intravenous contrast injection. Reconstructed coronal and sagittal MPRimages reviewed. All images stored on PACS. Automated exposure control was usedas a dose optimization technique for this examination. CONTRAST TYPE/DOSE: 100mL of IOVERSOL 350 MG IODINE/ML INTRAVENOUSSYRINGE injected via intravenous COMPARISON: 08/25/2023 FINDINGS: LOWER CHEST: No significant pulmonary abnormalities. No effusion.Large coarse calcifications within the right breast may reflect sequela of prior trauma. Correlate with patient history. LIVER: Normal size. No identified cystic or solid masses. GALLBLADDER: Surgically absent. BILE DUCTS: No intrahepatic or extrahepatic ductal dilatation. SPLEEN: Normal size. No focal lesions. PANCREAS: No identified cystic or solid masses. No significant calcifications. No adjacent inflammation or peripancreatic fluidcollections. Pancreatic duct not dilated. ADRENALS: Normal. KIDNEYS/URINARY TRACT: 1 cm cyst right kidney. No visualized stones. No hydronephrosis or hydroureter. Symmetric enhancement. Urinary bladderis unremarkable. GI: There is diverticulosis predominantly involving the descending and sigmoid colon. There is thickening of the wall of the descending andsigmoid colon with some stranding in the surrounding fat suggesting inflammatoryor infectious colitis. There is also thickening of the wall of the rectumwith surrounding perirectal stranding suggesting proctitis. No bowelobstruction or abscess. Multiple air-fluid levels are noted within the colonconsistent with the patient's diarrheal state. The appendix is surgically absent. PERITONEUM: No ascites or free air. RETROPERITONEUM: No mass or adenopathy. REPRODUCTIVE: No significant abnormality. VASCULATURE: Atherosclerotic disease in the aorta and iliacs MUSCULOSKELETAL: Multilevel degenerative changes are present without fracture. No concerning lesions are present. Postoperative changes ofprior fusion posteriorly within the lumbar spine from L2 through S1. OTHER: No other abnormality. IMPRESSION: 1. Thickening of the wall of the descending and sigmoid colon with some stranding in the surrounding fat suggesting inflammatory or infectious colitis. There is also thickening of the wall of the rectum withsurrounding perirectal stranding suggesting proctitis. No bowel obstruction orabscess. 2. Multiple air-fluid levels are noted within the colon consistent withthe patient's diarrheal state. 3. Surgical absence of the gallbladder. 4. 1 cm cyst right kidney. 5. Large coarse calcifications within the right breast may reflectsequela of prior trauma. Correlate with patient history. THIS IS AN ELECTRONICALLY VERIFIED FINAL REPORT 01/26/2025 8:23 PM - Electronically signed by Bo Ramsey M.D. KT: KT Report ID: [id number] Reading Location: [id number] Jorge A RAMOS IMG CT PROCEDURES Final Re sult * C. difficile testing Stool (01/26/2025 6:35 PM CDT) Pathologist [facility] GDH Result Negative Negative Toxin Result Negative Negative [facility] ([place]) C. diff result Negative, free toxin Negative, free toxin [facility] C. diff interp Negative for toxigenic Clostridioides (Clostridium) difficile. Analysis was performed using a glutamate dehydrogenase antigen detection assay combined with a C. difficile toxin detection assay. [facility] ([place]) Stool 01/26/2025 6:35 PM CDT 01/26/2025 6:49 PM CDT Jorge A RAMOS LAB MICROBIOLOGY - GENERAL ORDERABLES Final Result [facility] ([place]) 1 [facility] Department [place] [address] * eGFR (01/26/2025 6:35 PM CDT) Pathologist [facility] eGFR 63 >=60 mL/min/1. 73 m2 Comment: Interpretive Data Reference Interval Normal >/= 90 mL/min/1.73m2 Mildly decreased* 60 - 89 mL/min/1.73m2 Mildly to moderately decreased 45 - 59 mL/min/1.73m2 Moderately to severely decreased 30 - 44 mL/min/1.73m2 Severely decreased 15 - 29 mL/min/1.73m2 Kidney Failure < 15 mL/min/1.73m2 *Relative to young adult level Estimated glomerular filtration rate is determined by the 2020 CKD-EPI equation recommended by the National Kidney Foundation (A Unifying Approach to GFR Estimation: Recommendations of the NKF-ASK Task Force on Reassessing the Inclusion of Race in Diagnosing Kidney Disease, JASN 2020). The CKD-EPI equation should not be used for patients with unstable renal function and has not been validated in children and those over 70. Current interpretive data was last reviewed 2021. Blood 01/26/2025 6:35 PM CDT 01/26/2025 6:49 PM CDT Jorge A RAMOS LAB BLOOD ORDERABLES Final Result [facility] ([place]) 1 [facility] Department [place] [address] * (ABNORMAL) Differential, auto (01/26/2025 6:35 PM CDT) Neutrophil abs 6.75(H) 1.50 - 6.50 K/cumm Imm gran abs 0.05 0.00 - 0.10 K/cumm [facility] ([place]) Lymphocyte abs 3.94(H) 0.80 - 3.30 K/cumm [facility] ([place]) Monocyte abs 0.89(H) 0.20 - 0.80 K/cumm [facility] ([place]) Eosinophil abs 0.24 0.00 - 0.50 K/cumm [facility] ([place]) Basophil abs 0.06 0.00 - 0.10 K/cumm [facility] ([place]) Neutrophil pct 56.6 % [facility] ([place]) Comment: Interpretive Data Percent cell count reference ranges are not reported, since discordance with absolute values may lead to misinterpretation of CBC data. Current Interpretive Data was last revised on 2017. Imm gran pct 0.4 % [facility] ([place]) Comment: Interpretive Data Percent cell count reference ranges are not reported, since discordance with absolute values may lead to misinterpretation of CBC data. Current Interpretive Data was last revised on 2017. Lymphocyte pct 33.0 % [facility] ([place]) Comment: Interpretive Data Percent cell count reference ranges are not reported, since discordance with absolute values may lead to misinterpretation of CBC data. Current Interpretive Data was last revised on 2017. Monocyte pct 7.5 % [facility] ([place]) Comment: Interpretive Data Percent cell count reference ranges are not reported, since discordance with absolute values may lead to misinterpretation of CBC data. Current Interpretive Data was last revised on 2017. Eosinophil pct 2.0 % CHASE [facility] ([place]) Comment: Interpretive Data Percent cell count reference ranges are not reported, since discordance with absolute values may lead to misinterpretation of CBC data. Current Interpretive Data was last revised on 2017. Basophil pct 0.5 % [facility] ([place]) Comment: Interpretive Data Percent cell count reference ranges are not reported, since discordance with absolute values may lead to misinterpretation of CBC data. Current Interpretive Data was last revised on 2017. Blood 01/26/2025 6:35 PM CDT 01/26/2025 6:49 PM CDT Jorge A RAMOS LAB BLOOD ORDERABLES Final Result S[facility]I [facility] ([place]) 1 [facility] Department [place] [address] * Norovirus PCR Stool (01/26/2025 6:35 PM CDT) Norovirus GI RNA Not Detected Not Detected [facility] Comment:Testing performed by : [facility], [address] [facility]., [address] Norovirus GII RNA Not Detected Not Detected [facility] ([place]) Comment: Interpretive data: Testing performed at the [facility] Laboratory using the [employer] Xpert Norovirus Assay. This assay uses nucleic acid amplification to detect RNA from norovirus. This test is cleared by the [place] Food and Drug Administration for unformed stool specimens. The performance characteristics for unformed stool specimens have been verified by the performing laboratory. The performance characteristics of rectal swab specimens have also been validated and verified by the performing laboratory. Positive Xpert Norovirus results do not rule out other causes of infectious diarrhea. Assay interference may be observed in the presence of Barium sulfate and Benzalkonium chloride. Mutations or polymorphisms in primer or probe binding regions may affect detection of new or unknown norovirus variants resulting in a false negative result. Results from the Xpert Norovirus Assay should be interpreted in conjunction with other laboratory and clinical data available to the clinician. Current interpretive data was last revised on 2024. Testing performed by: [facility], [address] [place]., [address] Stool 01/26/2025 6:35 PM CDT 01/26/2025 10:57 PM CDT us Jorge A RAMOS LAB MICROBIOLOGY - GENERAL ORDERABLES Final Result [facility] 1 [facility] Department [place] [address] [facility] * (ABNORMAL) CBC with auto differential (01/26/2025 6:35 PM CDT) WBC 11.93(H) 3.80 - 9.90 K/cumm Hgb 13.2 11.9 - 15.5 g/dL [facility] Hct 40.2 35.6 - 45.5 % [facility] Plt 389 150 - 400 K/cumm [facility] MPV 9.4 9.1 - 12.3 fL [facility] RBC 4.37 3.90 - 5.20 M/cumm [facility] MCV 92.0 81.3 - 96.4 fL [facility] MCH 30.2 27.1 - 33.3 pg [facility]) MCHC 32.8 32.3 - 35.7 g/dL [facility] RDW CV 14.5 11.1 - 14.9 % [facility] RDW SD 49.1(H) 35.7 - 48.1 fL [facility]) NRBC abs 0.00 0.00 - 0.01 K/cumm [facility]) Blood 01/26/2025 6:35 PM CDT 01/26/2025 6:49 PM CDT us Jorge A RAMOS LAB BLOOD ORDERABLES Final Result Performing Organization Address [facility] de Phone Number SABI GUIDO ([place]) [address] [place] [address] * Stool culture Stool Rectum (01/26/2025 6:35 PM CDT) Direct Specimen Exam Shiga Toxin Testing: Antigen detection assay for Shiga-toxin NEGATIVE for Shiga Toxin 1 and Shiga Toxin 2. Comment:Testing performed by : [facility], [address] [place]., [address] Report Final Report: No growth of enteric bacterial pathogens [facility] ([place]) Comment:Testing performed by : [facility], [address] [place] [address]., [id number] Stool (Rectum) 01/26/2025 6: 35 PM CDT 01/26/2025 9:56 PM CDT Narrative [facility] ([place]) - 01/30/2025 9:41 AM CDT Testing performed by [facility] Microbiology Laboratory ([phone]). Routine stool cultures include procedures to detect Salmonella, Shigella, Edwardsiella, Aeromonas, Pleisiomonas, Campylobacter, Yersinia, E. coli O157, and Shiga-like toxins. Vibrio is cultured only upon special request. If Vibrio is suspected, please call the laboratory at [phone]. Interpretive data was last updated November 21, 2016. Jorge A RAMOS LAB MICROBIOLOGY - GENERAL ORDERABLES Final Result Performing Organization Address [facility] Co de Phone Number [facility]I [facility] ([place]) [address] [place] [address] * TSH (01/26/2025 6:35 PM CDT) Thyroid Stimulating Hormone 0.94 0.30 - 4.20 mcIUnit/mL Blood 01/26/2025 6:35 PM CDT 01/26/2025 6:49 PM CDT Jorge A RAMOS LAB BLOOD ORDERABLES Final Result S[facility]I [facility] ([place]) 1 [facility] [place] [address] * Phosphorus (01/26/2025 6:35 PM CDT) [facility] Phosphorus, pl 3.2 2.3 - 4.5 mg/dL Blood 01/26/2025 6:35 PM CDT 01/26/2025 6:49 PM CDT Jorge A RAMOS LAB BLOOD ORDERABLES Final Result SABI [facility] ([place]) 1 [facility] [employer] [address] * Magnesium (01/26/2025 6:35 PM CDT) [facility] Magnesium 1.8 1.4 - 2.5 mg/dL Blood 01/26/2025 6:35 PM CDT 01/26/2025 6:49 PM CDT Jorge A RAMOS LAB BLOOD ORDERABLES Final Result [facility]I [facility] ([place]) 1 [facility] Department [place] [employer] [place] [address] * Lipase (01/26/2025 6:35 PM CDT) [facility] Lipase 28 10 - 99 Units/L Blood 01/26/2025 6:35 PM CDT 01/26/2025 6:49 PM CDT Jorge A RAMOS LAB BLOOD ORDERABLES Final Result S[facility]I [facility] ([place]) 1 [facility] [place] [employer] [place] [address] * (ABNORMAL) Lipid panel (01/26/2025 6:35 PM CDT) [facility] Cholesterol 193 30 - 199 mg/dL [facility] ([place]) Comment: Interpretive Data Ages < or = 19 years Acceptable: <170 mg/dL Borderline high: 170-199 mg/dL High: >or= 200 mg/dL Ages > or = 20 years Desirable: <200 mg/dL Borderline high: 200-239 mg/dL High: >or= 240 mg/dL Literature References: 1. Expert Panel on Integrated Guidelines for Cardiovascular Health and Risk Reduction in Children and Adolescents. Pediatrics 2011;128:S213 2. NCEP Expert Panel. Circulation 2004;110:227 Current Interpretive Data was last revised on 2018. Triglycerides 305(H) <=149 mg/dL [facility] ([place]) Comment: Interpretive Data Ages < or = 9 years Acceptable: <75 mg/dL Borderline high: 75-99 mg/dL High: >or= 100 mg/dL Ages 10 to 20 years Acceptable: <90 mg/dL Borderline high: 90-129 mg/dL High: >or= 130 mg/dL Ages > or = 20 years Desirable: <150 mg/dL Borderline high: 150-199 mg/dL High: 200-499 mg/dL Very high: >or= 499 mg/dL Literature References: 1. Expert Panel on Integrated Guidelines for Cardiovascular Health and Risk Reduction in Children and Adolescents. Pediatrics 2011;128:S213 2. NCEP Expert Panel. Circulation 2004;110:227 Current Interpretive Data was last revised on 2018. HDL 32(L) >=40 mg/dL [facility] ([place]) Comment: Interpretive Data Ages < or = 19 years Acceptable: >45 mg/dL Borderline low: 40-45 mg/dL Low: <40 mg/dL Ages > or = 20 years Desirable: >or= 60 mg/dL Low: <40 mg/dL Literature References: 1. Expert Panel on Integrated Guidelines for Cardiovascular Health and Risk Reduction in Children and Adolescents. Pediatrics 2011;128:S213 2. NCEP Expert Panel. Circulation 2004;110:227 Current Interpretive Data was last revised on 2018. LDL, calculated 108 <=129 mg/dL [facility] ([place]) Comment: Interpretive Data Ages < or = 19 years Acceptable: <110 mg/dL Borderline high: 110-129 mg/dL High: >or= 130 mg/dL Ages > or = 20 years Optimal: <100 mg/dL Near optimal: 100-129 mg/dL Borderline high: 130-159 mg/dL High: >160 mg/dL Calculated using the Hugh LDL-C estimating equation. This equation was implemented on 2024. Prior to this date LDL-C was estimated using the Friedewald equation. Literature References: 1. Expert Panel on Integrated Guidelines for Cardiovascular Health and Risk Reduction in Children and Adolescents. Pediatrics 2011;128:S213 2. NCEP Expert Panel. Circulation 2004;110:227 3. Hugh Chavez et al. ARTI Cardiol. 2020 November 14;5(5):540-548. doi: 10.1001/jamacardio.2020.0013 Current Interpretive Data was last revised on 2024. Testing performed by: [place], [address] Non-HDL Cholesterol 161 mg/dL [facility]I [facility] ([place]) Comment: Interpretive Data Ages < or = 19 years Acceptable: <120 mg/dL Borderline high: 120-144 mg/dL High: >145 mg/dL Ages > or = 20 years When triglycerides are >200 mg/dL, Non-HDL cholesterol is a secondary target of therapy with treatment goals that are 30 mg/dL greater than the LDL cholesterol target. Literature References: 1. Expert Panel on Integrated Guidelines for Cardiovascular Health and Risk Reduction in Children and Adolescents. Pediatrics 2011;128:S213 2. NCEP Expert Panel. Circulation 2004;110:227 Current Interpretive Data was last revised on 2018. Testing performed by: [place], [address] Chol/HDL ratio 6 HESHAMNE Jose GUIDO ([place]) Comment:Testing performed by : [place], [address] Blood 01/26/2025 6:35 PM CDT 01/29/2025 11:50 AM CDT Narrative [facility] ([place]) - 01/29/2025 12:18 PM CDT Has the patient been fasting for 8 hours or more?->No us Yves Koch MD LAB BLOOD ORDERABLES Fi nal Result [facility] ([place]) 1 [facility] Department [place] [address] * (ABNORMAL) Comprehensive metabolic panel (01/26/2025 6:35 PM CDT) Sodium 140 135 - 145 mmol/L Potassium, pl 3.3 3.3 - 4.9 mmol/L [facility]) Chloride 102 97 - 110 mmol/L [facility]) CO2 20(L) 22 - 32 mmol/L [facility]) Anion gap 19(H) 2 - 15 mmol/L [facility]) BUN 10 6 - 25 mg/dL [facility]) Creatinine 1.04 0.60 - 1.10 mg/dL [facility]) Glucose 126 70 - 199 mg/dL [facility] ([place]) Comment: Interpretive Data Fasting glucose >/= 126 mg/dl is diagnostic for diabetes. Fasting is defined as no caloric intake for at least 8 hours. Fasting glucose between 100 mg/dl to 125 mg/dl is diagnostic of prediabetes. In a patient with classic symptoms of hyperglycemia or hyperglycemic crisis, a random glucose >/= 200 mg/dl is diagnostic for diabetes. In the absence of unequivocal hyperglycemia, results should be confirmed by repeat testing. The classification and Diagnosis of Diabetes Diabetes Care 2021; 46: S19-S40. Current interpretive data was last revised 2022. Calcium 9.7 8.5 - 10.3 mg/dL [facility]) Bilirubin, total 0.2 0.1 - 1.2 mg/dL [facility] ([place]) Protein, pl 7.1 6.5 - 8.5 g/dL [facility] ([place]) Albumin 4.5 3.5 - 5.0 g/dL [facility] ([place]) Alk phos 139(H) 40 - 130 Units/L [facility]) ALT 17 7 - 45 Units/L [facility]) AST 21 10 - 45 Units/L [facility] ([place]) Blood 01/26/2025 6:35 PM CDT 01/26/2025 6:49 PM CDT Jorge A RAMOS LAB BLOOD ORDERABLES Final Result SABI GUIDO ([place]) 1 [facility] [place] [employer] [place] [address] * Cryptosporidium and Giardia antigen assay Stool (01/26/2025 6:32 PM CDT) Giardia Ag Negative Negative Comment:Testing performed by : [facility], [address] [place]., [address] Cryptosporidium Ag Negative Negative Eric GUIDO ([place]) Comment: Interpretive data: Testing performed by the [facility] Microbiology Laboratory using an immunoassay that detects Cryptosporidium and Giardia antigens in stool specimens. If comprehensive examination for ova and parasites is required, please request Ova and Parasite Examination. Testing performed by: [facility], [address] [place] [address]., [id number] Stool 01/26/2025 6:32 PM CDT 01/26/2025 9:54 PM CDT Jorge A RAMOS LAB MICROBIOLOGY - GENERAL ORDERABLES Final Result Performing Organization Address City/[facility]/ZIP Co de Phone Number [facility]I [facility] ([place]) [facility] [facility] Department [place] [employer] [place] [address] * XR Spine Lumbar Ap Lat Flex Ext min 4 Views (01/22/2025 8:26 AM CDT) Anatomical Region Laterality Modality L-spine N/A Computed Radiogr aphy 01/27/2025 8:57 AM CDT Narrative 01/27/2025 8:59 AM CDT EXAM DESCRIPTION: 1. XR SPINE LUMBAR AP LAT FLEX EXT MIN 4 VIEWS REASON FOR STUDY: fall, low back pain FINDINGS: Four views submitted with comparison 10/26/2023. Redemonstrated is L2-S1 combined anterior posterior spinal fusion with L5 corpectomy. Flexion-extension views demonstrate no abnormal translation. Mild L1-L2 degenerative disc disease. Arterial atherosclerosis and surgical clips are present. IMPRESSION: 1. Unchanged L2-S1 combined anterior posterior spinal fusion with L5 corpectomy. THIS IS AN ELECTRONICALLY VERIFIED FINAL REPORT 01/27/2025 8:59 AM - Electronically signed by Mitch Aragon M.D. MF: [id number] Report ID: [id number] Reading Location: [id number] Procedure Note Mitch Aragon MD - 01/27/2025 EXAM DESCRIPTION: 1. XR SPINE LUMBAR AP LAT FLEX EXT MIN 4 VIEWS REASON FOR STUDY: fall, low back pain FINDINGS: Four views submitted with comparison 10/26/2023. Redemonstrated is L2-S1 combined anterior posterior spinal fusion with L5 corpectomy. Flexion-extension views demonstrate no abnormal translation. Mild L1-L2 degenerative disc disease. Arterial atherosclerosis andsurgical clips are present. IMPRESSION: 1. Unchanged L2-S1 combined anterior posterior spinal fusion with L5 corpectomy. THIS IS AN ELECTRONICALLY VERIFIED FINAL REPORT 01/27/2025 8:59 AM - Electronically signed by Mitch Aragon M.D. MF: [id number] Report ID: [id number] Reading Location: [place] [address] Kimberly Knox NP IMG XR PROCEDURES Final Result * XR Chest Pa Lateral 2 Views (01/22/2025 8:25 AM CDT) Anatomical Region Laterality Modality Body, Chest N/A Computed Radiogr aphy 01/26/2025 8:23 PM CDT Narrative 01/26/2025 8:23 PM CDT EXAM DESCRIPTION: XR CHEST PA LATERAL 2 VIEWS REASON FOR STUDY: pre-op Preop for right shoulder surgery TECHNIQUE: 2 radiographic view(s) of the chest. COMPARISON: 06/28/2023 FINDINGS: LUNGS: No focal opacity, pleural effusion, or pneumothorax. HEART/MEDIASTINUM: Cardiac silhouette normal in size. Mediastinal and hilar contours appear normal. LINES/TUBES: None. BONES: No acute osseous abnormality. IMPRESSION: No acute cardiopulmonary abnormality. THIS IS AN ELECTRONICALLY VERIFIED FINAL REPORT 01/26/2025 8:23 PM - Electronically signed by Bo Ramsey M.D. KT: KT Report ID: [id number] Reading Location: [place] [address] Procedure Note Bo Ramsey MD - 01/26/2025 EXAM DESCRIPTION: XR CHEST PA LATERAL 2 VIEWS REASON FOR STUDY: pre-op Preop for right shoulder surgery TECHNIQUE: 2 radiographic view(s) of the chest. COMPARISON: 06/28/2023 FINDINGS: LUNGS: No focal opacity, pleural effusion, or pneumothorax. HEART/MEDIASTINUM: Cardiac silhouette normal in size. Mediastinal andhilar contours appear normal. LINES/TUBES: None. BONES: No acute osseous abnormality. IMPRESSION: No acute cardiopulmonary abnormality. THIS IS AN ELECTRONICALLY VERIFIED FINAL REPORT 01/26/2025 8:23 PM - Electronically signed by Bo Ramsey M.D. KT: KT Report ID: [id number] Reading Location: [place] [address] Yves Koch MD IMG XR PROCEDURES Final Result * ECG 12 lead (01/22/2025 8:12 AM CDT) 01/22/2025 8:08 AM CDT Narrative [facility] - 01/22/2025 10:11 AM CDT Vent Rate: 87 bpm RR Interval: 683 msec DC Interval: 155 msec QRS Duration: 89 msec QT Interval: 335 msec QTC Interval: 380 msec P-R-T [place]: 34 - -15 - 69 degrees IMPRESSION: SINUS RHYTHM Leftward axis Compared to prior EKG, axis has shifted leftward. Electronically Signed By: Dr Wilian Fritz Yves Koch MD ECG ORDERABLES Final R esult [facility] * Calcium, ionized, whole blood (01/22/2025 8:00 AM CDT) Ca, ionized, bld 4.83 4.50 - 5.10 mg/dL Blood 01/22/2025 8:00 AM CDT 01/22/2025 8:07 AM CDT us Florence Rausch MD LAB BLOOD ORDERABLES Final Result [facility] ([place]) [address] [place] [address] [employer] [place] [address] * eGFR (01/22/2025 8:00 AM CDT) eGFR 77 >=60 mL/min/1. 73 m2 Comment: Interpretive Data Reference Interval Normal >/= 90 mL/min/1.73m2 Mildly decreased* 60 - 89 mL/min/1.73m2 Mildly to moderately decreased 45 - 59 mL/min/1.73m2 Moderately to severely decreased 30 - 44 mL/min/1.73m2 Severely decreased 15 - 29 mL/min/1.73m2 Kidney Failure < 15 mL/min/1.73m2 *Relative to young adult level Estimated glomerular filtration rate is determined by the 2020 CKD-EPI equation recommended by the National Kidney Foundation (A Unifying Approach to GFR Estimation: Recommendations of the NKF-ASK Task Force on Reassessing the Inclusion of Race in Diagnosing Kidney Disease, JASN 2020). The CKD-EPI equation should not be used for patients with unstable renal function and has not been validated in children and those over 70. Current interpretive data was last reviewed 2021. Blood 01/22/2025 8:00 AM CDT 01/22/2025 8:07 AM CDT us Yves Koch MD LAB BLOOD ORDERABLES Fi nal Result [facility] [address] [facility] [employer] [place] [address] * (ABNORMAL) Differential, auto (01/22/2025 8:00 AM CDT) Neutrophil abs 3.98 1.50 - 6.50 K/cumm Imm gran abs 0.05 0.00 - 0.10 K/cumm [facility] ([place]) Lymphocyte abs 4.37(H) 0.80 - 3.30 K/cumm [facility]) Monocyte abs 0.77 0.20 - 0.80 K/cumm [facility] ([place]) Eosinophil abs 0.37 0.00 - 0.50 K/cumm [facility] ([place]) Basophil abs 0.09 0.00 - 0.10 K/cumm [facility] ([place]) Neutrophil pct 41.4 % [facility] ([place]) Comment: Interpretive Data Percent cell count reference ranges are not reported, since discordance with absolute values may lead to misinterpretation of CBC data. Current Interpretive Data was last revised on 2017. Imm gran pct 0.5 % [facility] ([place]) Comment: Interpretive Data Percent cell count reference ranges are not reported, since discordance with absolute values may lead to misinterpretation of CBC data. Current Interpretive Data was last revised on 2017. Lymphocyte pct 45.4 % [facility] ([place] Comment: Interpretive Data Percent cell count reference ranges are not reported, since discordance with absolute values may lead to misinterpretation of CBC data. Current Interpretive Data was last revised on 2017. Monocyte pct 8.0 % [facility] ([place]) Comment: Interpretive Data Percent cell count reference ranges are not reported, since discordance with absolute values may lead to misinterpretation of CBC data. Current Interpretive Data was last revised on 2017. Eosinophil pct 3.8 % [facility] ([place] Comment: Interpretive Data Percent cell count reference ranges are not reported, since discordance with absolute values may lead to misinterpretation of CBC data. Current Interpretive Data was last revised on 2017. Basophil pct 0.9 % [facility] ([place]) Comment: Interpretive Data Percent cell count reference ranges are not reported, since discordance with absolute values may lead to misinterpretation of CBC data. Current Interpretive Data was last revised on 2017. Blood 01/22/2025 8:00 AM CDT 01/22/2025 8:07 AM CDT us Yves Koch MD LAB BLOOD ORDERABLES Fi nal Result [facility] ([place]) [address] [facility] Department [place] [address] * (ABNORMAL) CBC with auto differential (01/22/2025 8:00 AM CDT) WBC 9.63 3.80 - 9.90 K/cumm Hgb 13.2 11.9 - 15.5 g/dL [facility] Hct 40.5 35.6 - 45.5 % [facility] Plt 321 150 - 400 K/cumm [facility]) MPV 9.0(L) 9.1 - 12.3 fL [facility] RBC 4.33 3.90 - 5.20 M/cumm [facility]) MCV 93.5 81.3 - 96.4 fL [facility]) MCH 30.5 27.1 - 33.3 pg [facility] MCHC 32.6 32.3 - 35.7 g/dL [facility] RDW CV 14.5 11.1 - 14.9 % [facility] RDW SD 50.2(H) 35.7 - 48.1 fL [facility]) NRBC abs 0.00 0.00 - 0.01 K/cumm [facility]) Blood 01/22/2025 8:00 AM CDT 01/22/2025 8:07 AM CDT us Yves Koch MD LAB BLOOD ORDERABLES Fi nal Result [facility] ([place] [address] [facility] Department [place] [address] * (ABNORMAL) Hemoglobin A1c (01/22/2025 8:00 AM CDT) Hgb A1C 6.2(H) 4.0 - 5.6 % Estimated Average Glucose 131 mg/dL [facility] ([place]) Comment: The ADA recommends reporting an estimated Average Glucose (eAG) with all Hemoglobin A1c results using the equation derived from a study of 507 normal and diabetic adults. Minority populations were underrepresented and children were not included. (Diabetes Care 31:6694-7835, 2008). The eAG is not equivalent to a fasting glucose. Blood 01/22/2025 8:00 AM CDT 01/22/2025 8:07 AM CDT Yves Koch MD LAB BLOOD ORDERABLES nal Result [facility] ([place]) 1 [facility] Department [place] [address] * (ABNORMAL) Comprehensive metabolic panel (01/22/2025 8:00 AM CDT) Sodium 140 135 - 145 mmol/L Potassium, pl 4.0 3.3 - 4.9 mmol/L [facility] ([place]) Chloride 103 97 - 110 mmol/L [facility] ([place] CO2 21(L) 22 - 32 mmol/L [facility] ([place]) Anion gap 16(H) 2 - 15 mmol/L [facility] ([place]) BUN 12 6 - 25 mg/dL [facility] ([place]) Creatinine 0.88 0.60 - 1.10 mg/dL [facility] ([place]) Glucose 140 70 - 199 mg/dL [facility] ([place]) Comment: Interpretive Data Fasting glucose >/= 126 mg/dl is diagnostic for diabetes. Fasting is defined as no caloric intake for at least 8 hours. Fasting glucose between 100 mg/dl to 125 mg/dl is diagnostic of prediabetes. In a patient with classic symptoms of hyperglycemia or hyperglycemic crisis, a random glucose >/= 200 mg/dl is diagnostic for diabetes. In the absence of unequivocal hyperglycemia, results should be confirmed by repeat testing. The classification and Diagnosis of Diabetes Diabetes Care 2021; 46: S19-S40. Current interpretive data was last revised 2022. Calcium 9.4 8.5 - 10.3 mg/dL [facility]) Bilirubin, total 0.3 0.1 - 1.2 mg/dL [facility] ([place]) Protein, pl 7.2 6.5 - 8.5 g/dL [facility] ([place]) Albumin 4.1 3.5 - 5.0 g/dL [facility]) Alk phos 118 40 - 130 Units/L [facility] ALT 14 7 - 45 Units/L [facility] AST 14 10 - 45 Units/L [facility]) Blood 01/22/2025 8:00 AM CDT 01/22/2025 8:07 AM CDT us Yves Koch MD LAB BLOOD ORDERABLES Fi nal Result [facility] Department [place] [address] * Screening Mammogram Bilateral W Eric (12/20/2022 9:25 AM CDT) Anatomical Region Laterality Modality Breast Bilateral Mammography 12/20/2022 9:42 AM CDT Impressions 12/20/2022 9:42 AM CDT There is no mammographic evidence of malignancy. A 1 year screening mammogram is recommended. BI-RADS: 2 - Benign. The patient has been or will be contacted. The patient will be entered into a reminder system with a target due date of 1 year for her next mammogram. Electronically signed by: Panda Echeverria M.D. Narrative 12/20/2022 9:42 AM CDT EXAMINATION: SCREENING MAMMOGRAM BILATERAL W ERIC ORDERING HEALTHCARE PROVIDER: SELF SCREENING MAMMOGRAM HISTORY: Routine screening mammography. COMPARISON: 03/11/2020, 07/26/2017, 01/13/2015 TECHNIQUE: CC and MLO views of the bilateral breasts were obtained with digital technique using breast tomosynthesis with C view. Computer aided detection was utilized. FINDINGS: DENSITY: There are scattered fibroglandular elements in the bilateral breasts. BREASTS: There are postoperative changes of bilateral reduction mammoplasty with associated benign dystrophic calcifications compatible with fat necrosis. There are no suspicious masses, suspicious calcifications, or other suspicious findings in either breast. There has been no suspicious interval change. Self Screening Mammogram IMG MAMMO PROCEDURES Fi nal Result * Albumin Creatinine Ratio, Urine (10/07/2022 2:56 PM CDT) Albumin Ur <12.0 mg/L [facility] ([place]) Comment: Interpretive Data No reference range established. Current interpretive data was last revised 2018. Testing performed by: [facility], [address] [place] [address]., [id number] Creatinine Ur 34.7 mg/dL [facility] ([place]) Comment: Interpretive Data No reference range established. Current interpretive data was last revised 2018. Testing performed by: [facility], [address] [place] [address]., [id number] Albumin Creatinine Ratio, Ur See Comment 1 - 29 [facility] ([place]) Comment: Unable to calculate Testing performed by: [facility], [address] [place] [address]., [address] Urine 10/07/2022 2:56 PM CDT 10/07/2022 6:39 PM CDT Get[place]w RAMOS LAB URINE ORDERABLES Fi nal Result Performing Organization Address City/[facility]/ZIP Co de Phone Number [facility] ([place]) [address] [facility] Department [place] [address] * Hepatitis C Antibody Reflex Hepatitis C RNA Quantitative PCR Blood (07/11/2018 8:46 AM FOREST TECHNOLOGY PROFESSOR) Hep C Ab Negative Negative [facility] Blood specimen (specimen) 07/11/2018 8:46 AM FOREST TECHNOLOGY PROFESSOR 07/11/2018 2:12 PM FOREST TECHNOLOGY PROFESSOR Narrative [facility] - 07/11/2018 2:57 PM FOREST TECHNOLOGY PROFESSOR Danilo Lopez MD LAB MICROBIOLOGY - [place]AL [place] [address] [place] [address] * COLONOSCOPY IMAGES (04/28/2015) Anatomical Region Laterality Modality Other Narrative 04/28/2015 Ordered by an unspecified provider. us Historical Provider GI PROCEDURE ORDERABLES F inal Result from Last 3 Months or Most Recently Relevant to Health Maintenance Insurance [facility] MEDICARE [facility] Address: [address] [address] [place] [address] [employer] [facility] MEDICARE [facility] Address: [address] [address] [place] [address] [employer] Advance Directives For more information, please contact: [phone] * Full Code (Latest Code Status on File) Date Activated Date Inactivated Comments 08/25/2023 1:59 PM 08/29/2023 5:27 PM * Full Code Date Activated Date Inactivated Comments 06/24/2023 5:13 AM 07/03/2023 6:58 PM * Full Code Date Activated Date Inactivated Comments 06/24/2023 5:00 AM 06/24/2023 5:13 AM * Full Code Date Activated Date Inactivated Comments 06/05/2023 8:44 PM 06/14/2023 5:08 PM * Full Code Date Activated Date Inactivated Comments 05/20/2022 4:34 PM 05/28/2022 9:15 PM Care Teams Flaker Tender Relationship Specialty Start Date End Date Yves Koch MD [address] [address] PCP - General Family Medicine 12/25/24 Mc Herrera MD Consulting Physician Infectious Diseases 07/03/23 Loretta Rincon MD PhD [address] [facility] [address] [place] [address] Dermatology 11/06/23 Florence Rausch MD [address] [facility] [address] [place] [address] Consulting Physician Internal Medicine 11/06/23 Neo Botello MD PhD [address] [place] [address] Consulting Physician Neurosurgery 11/06/23 Sabas Perez MD [address] [place] [address] DR TARA Cazares [facility] [address] [place] [address] Boom Master Obstetrics and Gynecology 11/06/23 Johan Jang MD [address] [place] [address] [address] [place] [address] Consulting Physician Psychiatry 02/20/24 Manish Perez NP [address] [place] [address] [address] [place] [address] Nurse Practitioner Orthopedic Surgery 02/11/25
--- OUTSIDE RECORDS SUMMARY | 2025-03-30 14:13 | XMS_ITS | Encounter Summary ---
Author Organization [facility] Medical [facility] Address [address] [facility] [address] [place] [address] Care Team Providers Care Surgery Consultant Name Role Phone Danilo Lopez MD Primary Care Provider [phone] Danilo Lopez MD Primary Care Provider [phone] Chasidy Blacno RN Unavailable [phone] Georgie OlivaW Unavailable [phone] Mc Herrera MD Unavailable [phone] Yves Koch MD Primary Care Provider Loretta Rincon MD PhD Unavailable Florence Rausch MD Unavailable [phone] Neo Botello MD PhD Unavailable [phone] Sabas Perez MD Unavailable + [phone] Johan Jang MD Unavailable [phone] Yves Koch MD Primary Care Provider Johan Jang MD Unavailable [phone] Yves Koch MD Primary Care Provider Manish Perez FOOTWEAR SALES COORDINATOR Unavailable [phone] Encounter Details Date Type Department Care Team (Late st Contact Info) Description 04/28/2015 Orders Only [facility] Health Information Management [address] [place] [address] Scanning, Provider Social History Tobacco Use Types Packs/Day Years Used Date Smoking Tobacco: Former Alcohol Use Standard Drinks/Week Comments No 0 (1 standard drink = 0.6 oz pur e alcohol) Comments Unknown Sex and Gender Information Value Date Recorded Sex Assigned at Not on file Legal Sex Female 6:40 PM ELECTRONIC SCALE TESTER Gender Identity Female 05/19/2022 11:43 PM CDT Sexual Orientation Not on file documented as of this encounter Plan of Treatment Upcoming Encounters Date Type Department Care Team (Late Contact Info) Description 06/17/2025 12:00 PM ELECTRONIC SCALE TESTER Hospital Encounter [address] [address] Toya Toro MD [address] [place] [address] DR [address] [place] [address] 06/17/2025 12:00 PM ELECTRONIC SCALE TESTER - 06/17/2025 12:30 PM ELECTRONIC SCALE TESTER Surgery [address] [address] Toya Toro MD [address] [place] [address] DR ENGEL [address] [place] [address] COLONOSCOPY Scheduled Procedures Name Priority Associated Diagnoses Date/Ti me COLONOSCOPY Family history of colon cancer History of colonic polyps Colitis Encounter for screening colonoscopy 06/17/2025 12:00 PM ELECTRONIC SCALE TESTER documented as of this encounter Procedures Procedure Name Priority Date/Time Associated Diagnosis Comments GI - RESULT 04/28/2015 SCAN - PATHOLOGY 04/28/2015 documented in this encounter Results * SCAN - PATHOLOGY (04/28/2015) us Provider Scanning Final Result * GI - RESULT (04/28/2015) Anatomical Region Laterality Modality Other us Provider Scanning Final Result documented in this encounter Visit Diagnoses Not on filedocumented in this encounter Additional Health Concerns Infection Onset Date Last Indicated Resolved Time MRSA 10/16/2020 10/16/2020 09/14/2021 4:00 AM ELECTRONIC SCALE TESTER COVID: Suspected 08/30/2022 09/01/2022 08/31/2022 3:05 AM ELECTRONIC SCALE TESTER Exposure, COVID-19 Comment:Added automatically based on COVID19 lab answers indicating exposure risk 06/09/2023 06/09/2023 06/19/2023 3:[address] COVID: Suspected 06/23/2023 06/23/2023 06/23/2023 11:25 PM ELECTRONIC SCALE TESTER C. difficile 06/23/2023 06/23/2023 07/06/2023 4:40 PM ELECTRONIC SCALE TESTER COVID: Suspected 06/26/2023 06/26/2023 06/26/2023 4:30 PM ELECTRONIC SCALE TESTER Diarrhea 08/25/2023 08/25/2023 08/25/2023 1:12 PM ELECTRONIC SCALE TESTER C. difficile Comment:02/05/25 - Patient meets established clinical criteria for discontinuation of C. difficile isolation precautions. 08/25/2023 08/25/2023 02/05/2025 10:54 AM CDT COVID: Suspected 08/27/2023 08/27/2023 08/27/2023 6:52 PM ELECTRONIC SCALE TESTER COVID: Suspected 05/03/2024 05/03/2024 05/03/2024 6:05 PM CDT C. difficile suspected 01/26/2025 01/26/202501/26 8:50 PM CDT Norovirus suspected 01/26/2025 01/26/2025 01/28/20 12:39 AM CDT documented as of this encounter Care Teams Surgery Consultant Relationship Specialty Start Date End Date Danilo Lopez MD PCP - General 10/14/16 11/05/23 Danilo Lopez MD PCP - General 11/06/13 10/13/16 Yves Koch MD [address] [facility] ([facility]) Mailstop [phone] [place] [address] PCP - General Family Medicine 11/06/23 02/19/24 Johan Jang MD [address] [place] [address] PCP - Behavioral Health Psychiatry 02/20/24 Yves Koch MD [address] [facility] ([facility]) Mailstop [phone] [place] [address] PCP - General Family Medicine 02/20/24 12/24/24 Yves Koch MD [address] [place] [id number] PCP - General Family Medicine 12/25/24 Chasidy Blanco, BETSY [address] [facility] [address] [place] [address] [facility] [place] 05/30/22 06/26/22 Georgie Oliva LCSW [address] [facility] ([facility]) Mailstop [phone] [place] [address] [facility] [place] 06/15/23 06/15/23 Mc Herrera MD [address] [facility] ([facility]) Mailstop [phone] [place] [address] Consulting Physician Infectious Diseases 07/03/23 Loretta Rincon MD PhD [address] [place] [address] Dermatology 11/06/23 Florence Rausch MD [address] [facility] [address] [place] [address] Consulting Physician Internal Medicine 11/06/23 Neo Botello MD PhD [facility] [address] [facility] [address] [place] [address] Consulting Physician Neurosurgery 11/06/23 Sabas Perez MD [address] [place] [address] DR [address] [facility] [address] [place] [address] Food Service Hotel Runner Obstetrics and Gynecology 11/06/23 Johan Jang MD [address] [place] [address] [address] [place] [address] Consulting Physician Psychiatry 02/20/24 Manish Perez NP [address] [place] [address] [address] [place] [address] Nurse Practitioner Orthopedic Surgery 02/11/25 documented as of this encounter
--- OUTSIDE RECORDS SUMMARY | 2025-03-30 14:13 | XMS_ITS | Encounter Summary ---
Author Organization [facility] Address [address] [place] [address] Care Team Providers Care Market Manager Name Role Phone Danilo Lopez MD Primary Care Provider [phone] Chasidy Blanco RN Unavailable [phone] Georgie OlivaW Unavailable [phone] Mc Herrera MD Unavailable + [phone] Yves Koch MD Primary Care Provider Loretta Rincon MD PhD Unavailable Florence Rausch MD Unavailable [phone] Neo Botello MD PhD Unavailable [phone] Sabas Perez MD Unavailable + [phone] Johan Jang MD Unavailable [phone] Yves Koch MD Primary Care Provider Johan Jang MD Unavailable [phone] Yves Koch MD Primary Care Provider Manish Perez NP Unavailable Encounter Details Date Type Department Care Team (Late st Contact Info) Description 11/20/2020 Telephone [facility] [address] [facility] [address] [place] [address] Benjamin Mesa MD [address] [place] [address] Social History Tobacco Use Types Packs/Day Years Used Date Smoking Tobacco: Some Days Cigarettes 0.5 33 Smokeless Tobacco: Never Comments:socially Alcohol Use Standard Drinks/Week Comments Yes 0 (1 standard drink = 0.6 oz pur e alcohol) PHQ-2 Answer Date Recorded PHQ-2 Total Score (If total score is 3 or more points, staff should administer the PHQ-9) 6 11/09/2020 Comments No Sex and Gender Information Value Date Recorded Sex Assigned at Not on file Legal Sex Female 6:40 PM MINE DEVELOPMENT ENGINEER Gender Identity Female 05/19/2022 11:43 PM CDT Sexual Orientation Not on file documented as of this encounter Plan of Treatment Upcoming Encounters Date Type Department Care Team (Late st Contact Info) Description 06/17/2025 12:00 PM MINE DEVELOPMENT ENGINEER Hospital Encounter [address] [address] Toya Toro MD [address] [place] [address] 06/17/2025 12:00 PM MINE DEVELOPMENT ENGINEER - 06/17/2025 12:30 PM MINE DEVELOPMENT ENGINEER Surgery [address] [address] Toya Toro MD [address] [place] [address] COLONOSCOPY Scheduled Procedures Name Priority Associated Diagnoses Date/Ti me COLONOSCOPY Family history of colon cancer History of colonic polyps Colitis Encounter for screening colonoscopy 06/17/2025 12:00 PM MINE DEVELOPMENT ENGINEER documented as of this encounter Visit Diagnoses Not on filedocumented in this encounter Additional Health Concerns Infection Onset Date Last Indicated Resolved Time MRSA 10/16/2020 10/16/2020 09/14/2021 4:00 AM MINE DEVELOPMENT ENGINEER COVID: Suspected 08/30/2022 09/01/2022 08/31/2022 3:05 AM MINE DEVELOPMENT ENGINEER Exposure, COVID-19 Comment:Added automatically based on COVID19 lab answers indicating exposure risk 06/09/2023 06/09/2023 06/19/2023 3:[address] COVID: Suspected 06/23/2023 06/23/2023 06/23/2023 11:25 PM MINE DEVELOPMENT ENGINEER C. difficile 06/23/2023 06/23/2023 07/06/2023 4:40 PM MINE DEVELOPMENT ENGINEER COVID: Suspected 06/26/2023 06/26/2023 06/26/2023 4:30 PM MINE DEVELOPMENT ENGINEER Diarrhea 08/25/2023 08/25/2023 08/25/2023 1:12 PM MINE DEVELOPMENT ENGINEER C. difficile Comment:02/05/25 - Patient meets established clinical criteria for discontinuation of C. difficile isolation precautions. 08/25/2023 08/25/2023 02/05/2025 10:54 AM CDT COVID: Suspected 08/27/2023 08/27/2023 08/27/2023 6:52 PM MINE DEVELOPMENT ENGINEER COVID: Suspected 05/03/2024 05/03/2024 05/03/2024 6:05 PM CDT C. difficile suspected 01/26/2025 01/26/202501/26 8:50 PM CDT Norovirus suspected 01/26/2025 01/26/2025 01/28/20 12:39 AM CDT documented as of this encounter Care Teams Market Manager Relationship Specialty Start Date End Date Danilo Lopez MD PCP - General 10/14/16 11/05/23 Yves Koch MD [address] [facility] Mailstop [phone] [place] [address] PCP - General Family Medicine 11/06/23 02/19/24 Johan Jang MD 4 [facility] [address] [place] [address] PCP - Behavioral Health Psychiatry 02/20/24 4 Yves Koch MD [address] [facility] ([facility] Mailstop [phone] [place] [address] PCP - General Family Medicine 02/20/24 12/24/24 Yves Koch MD [address] [facility] [address] [place], [place] [id number] PCP - General Family Medicine 12/25/24 Chasidy Blanco, RN [address] [facility] [address] [place] [address] SHOP Outpatient Financial Sales Professional 05/30/22 06/26/22 Georgie Oliva LCSW [address] [facility] ([facility] Mailstop [phone] [place] [address] SHOP Outpatient Financial Sales Professional 06/15/23 06/15/23 Mc Herrera MD [address] [facility] ([facility] Mailstop [phone] [place] [address] Consulting Physician Infectious Diseases 07/03/23 Loretta Rincon MD PhD [address] [facility] [address] [place] [address] Dermatology 11/06/23 Florence Rausch MD [address] [facility] [address] [place] [address] Consulting Physician Internal Medicine 11/06/23 Neo Botello MD PhD [address] [place] [address] Consulting Physician Neurosurgery 11/06/23 Sabas Perez MD [address] [place] [address] [address] [place] [address] Network Operations Analyst Obstetrics and Gynecology 11/06/23 Johan Jang MD [address] [place] [address] [address] [place] [address] Consulting Physician Psychiatry 02/20/24 Manish Perez NP [address] [place] [address] [address] [place] [address] Nurse Practitioner Orthopedic Surgery 02/11/25 documented as of this encounter
--- OUTSIDE RECORDS SUMMARY | 2025-03-30 14:13 | XMS_ITS | Clinical Summary ---
Author Organization [facility] Address [address] [facility] [place] [address] Care Team Providers Care Tour Narrator Name Role Phone Danlio Lopez MD Primary Care Provider [phone] Source Comments [facility],non-owned Affiliates and Associated Physician Practices is amultiple site organization consisting of ambulatory clinics and hospital sitesin [place], [place], [place] and [place]. This disclosure is being madepursuant to the Care Everywhere program and may not contain all information available regarding this patient. Last updated 18.[facility] Allergies No known active allergies Medications * Be aware that medications may not be up to date on this document. Alwaysverify current medications with the patient. propoxyphene napsylate-acetam inophen (DARVOCET-N 100) 100-650 MG tablet Take 1 Tab by mouth every 4 hours as needed for Pain. Active Active Problems Problem Noted Date Diagnosed Date Calf pain 10/23/2009 Social History Tobacco Use Types Packs/Day Years Used Date Smoking Tobacco: Never Alcohol Use Standard Drinks/Week Comments No 0 (1 standard drink = 0.6 oz pur e alcohol) Comments Unknown Sex and Gender Information Value Date Recorded Sex Assigned at Not on file Legal Sex Female 8:41 AM PROPERTY ADMINISTRATOR Gender Identity Not on file Sexual Orientation Not on file Last Filed Vital Signs Vital Sign Reading Time Taken Comments Blood Pressure 90/60 03/17/2015 2:48 PM CDT Pulse 92 03/17/2015 2:48 PM CDT Temperature 37.1 C (98.8 F) 03/17/2015 2:48 PM CDT Respiratory Rate 20 03/17/2015 2:48 PM CDT Oxygen Saturation 98% 12/01/2014 9:55 AM CDT Inhaled Oxygen Concentration - - Weight 90 kg (198 lb 6.4 oz) 03/17/2015 2:48 PM CDT Height 165.1 cm (5' 5) 03/17/2015 2:48 PM CDT Body Mass Index 33.02 03/17/2015 2:48 PM CDT Plan of Treatment Health Maintenance Due Date Last Done Comments COLOGUARD (AGES 45-75) - COL ON CA SCREENING 1967 COLON MONITORING 1967 COLONOSCOPY - COLON CA SCREENING 1967 CT COLONOGRAPHY - COLON CA SCREENING 1967 Colorectal Cancer Screening 1967 FIT - COLON CA SCREENING 1967 FLEX SIG - COLON CA SCREENING 1967 LIPID TESTING 1967 MAMMOGRAM 1967 HIV SCREENING 1982 HEPATITIS C SCREENING 06/27/1985 DTAP/TDAP/TD VACCINES (1 - Tdap) 1986 HEPATITIS B VACCINE (1 of 3 - 19+ 3-dose series) 1986 PNEUMOCOCCAL VACCINE 50+ (1 of 1 - PCV) 2017 ZOSTER VACCINE (1 of 2) 2017 DEPRESSION SCREENING 07/17/2024 COVID-19 VACCINE (1 - 2023-2 5 season) 2025 INFLUENZA VACCINE (#1) 2025 HIB VACCINE Aged Out No longer eligi ble based on patient's age to complete this topic HPV VACCINE Aged Out No longer eligi ble based on patient's age to complete this topic MENINGOCOCCAL (Group B) VACC INE SHARED DECISION-MAKING Aged Out No longer eligibl e based on patient's age to complete this topic MENINGOCOCCAL GROUPS A/C/Y/W VACCINE Aged Out No longer eligible b ased on patient's age to complete this topic Insurance MEDICAID - OUT OF STATE Care Teams Tour Narrator Relationship Specialty Start Date End Date Danilo Lopez MD PCP - General 12/02/20
--- OUTSIDE RECORDS SUMMARY | 2025-03-30 14:13 | XMS_ITS | Encounter Summary ---
Author Organization [facility] Address [address] [place] [address] Care Team Providers Care Origination Specialist Name Role Phone Mc Herrera MD Unavailable [phone] Loretta Rincon MD PhD Unavailable Florence Rausch MD Unavailable [phone] Neo Botello MD PhD Unavailable [phone] Sabas Perez MD Unavailable [phone] Yves Koch MD Primary Care Provider Johan Jang MD Unavailable [phone] Yves Koch MD Primary Care Provider Manish Perez NP Unavailable [phone] Reason for Visit * Reason Onset Date Comments Scheduling Appointments 05/15/202405/15 LV M for patient to call back to schedule Imaging Lumbar/Sacral Selective Nerve Root INJ (TFE) Right (96[address]) Encounter Details Date Type Department Care Team (Late st Contact Info) Description 05/15/2024 Telephone [facility] [address], [address] [place] [address] Reinier Feldman MD [address] [place] [address] Scheduling Appointments (05/15 LVM for patient to call back to schedule Imaging Lumbar/Sacral Selective Nerve Root INJ (TFE) Right ([id number])) Social History Tobacco Use Types Packs/Day Years [...] materials from doctor or pharmacy Never 08/16/2023 [facility] Utilities Answer Date Recorded In the past 12 months has e electric, gas, oil, or water [employer] threatened to shut off services in your [...] any clubs o r organizations such as methodist groups, unions, fraternal or athletic groups, or school groups? No 08/28/2023 How often do you attend meet ings of the clubs or organizations you belong to? Never 08/28/2023 Are you , , di vorced, , never , or living with a partner? 08/28/2023 AUDIT-C Answer Date Recorded Q1: How often do you have a drink containing alcohol? Never 02/20/2024 Q2: How many drinks containi ng alcohol do you have on a typical day when you are drinking? Patient does not drink Q3: How often do you have si x or more drinks on one occasion? Never 02/20/2024 Overall Financial Resource Strain (CARDIA) Answe r Date Recorded How hard is it for you to pa y for the very basics like food, housing, medical care, and heating? Very hard 08/28/2023 PHQ-2 Answer Date Recorded PHQ-2 Total Score (If total score is 3 or more points, staff should administer the PHQ-9) 2 02/20/2024 Hunger Vital Sign Answer Date Recorded Within [...] place to sleep or slept in a snf (including now)? No 08/28/2023 Personal Safety Answer Date Recorded Have you ever been in or are you currently in a harmful physical or emotional relationship or is someone making you feel afraid or unsafe? Denies 08/25/2023 Education Answer Date Recorded What is the highest level of school you have completed or the highest degree you have received? Associate degree: occupational, technical, or vocational program 08/28/2023 Comments No Sex and Gender Information Value Date Recorded Sex Assigned at Not on file Legal Sex Female 6:40 PM FABRIC DESIGNER Gender Identity Female 05/19/2022 11:43 PM CDT Sexual Orientation Not on file documented as of this encounter Plan of Treatment Upcoming Encounters Date Type Department Care Team (Late st Contact Info) Description 06/17/2025 12:00 PM FABRIC DESIGNER Hospital Encounter [facility] [address] [place] [address] Toya Toro MD [address] [facility] [address] [place] [address] 06/17/2025 12:00 PM FABRIC DESIGNER - 06/17/2025 12:30 PM FABRIC DESIGNER Surgery [address] [address] Toya Toro MD 4 [facility] [address] [place] [address] COLONOSCOPY Scheduled Procedures Name Priority Associated Diagnoses Date/Ti me COLONOSCOPY Family history of colon cancer History of colonic polyps Colitis Encounter for screening colonoscopy 06/17/2025 12:00 PM FABRIC DESIGNER documented as of this encounter Goals Goal [...] on stairs Contact your local community or [facility] for information on exercise, fall prevention programs, or options for improving home safety. documented as of this encounter Visit Diagnoses Not on filedocumented in this encounter Additional Health Concerns Infection Onset Date Last Indicated Resolved Time C. difficile Comment:02/05/25 - Patient meets established clinical criteria for discontinuation of C. difficile isolation precautions. 08/25/2023 08/25/2023 02/05/2025 10:54 AM CDT C. difficile suspected 01/26/2025 01/26/202501/26 8:50 PM CDT Norovirus suspected 01/26/2025 01/26/2025 01/28/20 12:39 AM CDT documented as of this encounter Care Teams Origination Specialist Relationship Specialty Start Date End Date Yves Koch MD [address] [facility] [address] [place] [address] PCP - General Family Medicine 02/20/24 12/24/24 Yves Koch MD [address] [facility] [address] [place] [address] PCP - General Family Medicine 12/25/24 Mc Herrera MD Consulting Physician Infectious Diseases 07/03/23 Loretta Rincon MD PhD [address] [facility] [address] [place] [address] Dermatology 11/06/23 Florence Rausch MD [address] [facility] [address] [place] [address] Consulting Physician Internal Medicine 11/06/23 Neo Botello MD PhD [address] [place] [address] Consulting Physician Neurosurgery 11/06/23 Sabas Perez MD [address] [place] [address] [address] [place] [address] Lithographic Stripper Obstetrics and Gynecology 11/06/23 Johan Jang MD [address] [place] [address] [address] [place] [address] Consulting Physician Psychiatry 02/20/24 Manish Perez NP [address] [place] [address] [address] [place] [address] Nurse Practitioner Orthopedic Surgery 02/11/25 documented as of this encounter
--- OUTSIDE RECORDS SUMMARY | 2025-03-30 14:13 | XMS_ITS | Encounter Summary ---
Author Organization [facility] Address [address] [place] [address] Phone Care Team Providers Care Principal Accounts Clerk Name Role Phone Mc Herrera MD Unavailable [phone] Loretta Rincon MD PhD Unavailable Florence Rausch MD Unavailable [phone] Neo Botello MD PhD Unavailable Sbaas Perez MD Unavailable Johan Jang MD Unavailable Yves Koch MD Primary Care Provider Manish Perez NP Unavailable Encounter Details Date Type Department Care Team (Late st Contact Info) Description 01/27/2025 Results Follow-Up [facility] [address] [facility] [address] [place] [address] Florence Rausch MD [address] [facility] [address] [place] [address] Calcium, ionized, whole blood Social History Tobacco Use Types Packs/Day Years [...] materials from doctor or pharmacy Never 08/16/2023 [facility] Utilities Answer Date Recorded In the past 12 months has th e [employer], gas, oil, or water [employer] threatened to shut off services in your [...] often do you attend chur ch or mandaeism services? Never 08/28/2023 Do you belong to any clubs o r organizations such as voodoo groups, unions, fraternal or athletic groups, or [...] in a snf (including now)? No 08/28/2023 AUDIT-C Answer Date [...] on file Legal Sex Female 6:40 PM BIOMEDICAL ENGINEERING PROFESSOR Gender Identity Female 05/19/2022 11:43 PM CDT Sexual Orientation Not on file documented as of this encounter Functional Status * AUDIT-C Score Answer Date of Assessment Author 0 03/03/2025 2:05 PM CDT Tracey Erwin MA * Question Answer Date of Assessment Author Q1: How often do you have a drink containing alcohol? Never 03/03/2025 2:05 PM CDT Aubree Erwin MA Q2: How many drinks containing alcohol do you have on a typical day when you are drinking? Patient does not drink 03/03/2025 2:05 PM NOLAT Tracey Erwin MA Q3: How often do you have six or more drinks on one occasion? Never 03/03/2025 2:05 PM Aubree Lee MA documented as of this encounter Plan of Treatment Upcoming Encounters Date Type Department Care Team (Late st Contact Info) Description 06/17/2025 12:00 PM BIOMEDICAL ENGINEERING PROFESSOR Hospital Encounter [address] [address] Toya Toro MD [address] [facility] [address] [place] [address] 06/17/2025 12:00 PM BIOMEDICAL ENGINEERING PROFESSOR - 06/17/2025 12:30 PM BIOMEDICAL ENGINEERING PROFESSOR Surgery [address] [address] Toya Toro MD [address] [facility] [address] [place] [address] COLONOSCOPY Scheduled Procedures Name Priority Associated Diagnoses Date/Ti me COLONOSCOPY Family history of colon cancer History of colonic polyps Colitis Encounter for screening colonoscopy 06/17/2025 12:00 PM BIOMEDICAL ENGINEERING PROFESSOR documented as of this encounter Goals Goal [...] on stairs Contact your local community or [facility] for information on exercise, fall prevention programs, or options for improving home safety. documented as of this encounter Visit Diagnoses Not on filedocumented in this encounter Additional Health Concerns Infection Onset Date Last Indicated Resolved Time C. difficile Comment:02/05/25 - Patient meets established clinical criteria for discontinuation of C. difficile isolation precautions. 08/25/2023 08/25/2023 02/05/2025 10:54 AM CDT Norovirus suspected 01/26/2025 01/26/2025 01/28/20 12:39 AM CDT documented as of this encounter Care Teams Principal Accounts Clerk Relationship Specialty Start Date End Date Yves Koch MD [address] [facility] [address] [place] [address] PCP - General Family Medicine 12/25/24 Mc Herrera MD Consulting Physician Infectious Diseases 07/03/23 Loretta Rincon MD PhD [address] [address] Dermatology 11/06/23 Florence Rausch MD [address] [facility] [address] [place] [address] Consulting Physician Internal Medicine 11/06/23 Neo Botello MD PhD [facility] S [facility] [address] [place] [address] Consulting Physician Neurosurgery 11/06/23 Sabas Perez MD [address] [place] [address] [address] [facility] [address] [place] [address] Court Attendant Obstetrics and Gynecology 11/06/23 Johan Jang MD [address] [place] [address] [address] [place] [address] Consulting Physician Psychiatry 02/20/24 Manish Perez NP [address] [place] [address] [address] [place] [address] Nurse Practitioner Orthopedic Surgery 02/11/25 documented as of this encounter
--- OUTSIDE RECORDS SUMMARY | 2025-03-30 14:13 | XMS_ITS | Encounter Summary ---
Author Organization [facility] Address [address] [place] [address] Care Team Providers Care Care Associate Name Role Phone Danilo Lopez MD Primary Care Provider [phone] Chasidy Blanco RN Unavailable [phone] Georgie OlivaW Unavailable [phone] Mc Herrera MD Unavailable + [phone] Yves Koch MD Primary Care Provider Loretta Rincon MD PhD Unavailable Florence Rausch MD Unavailable [phone] Neo Botello MD PhD Unavailable [phone] Sabas Perez MD Unavailable + [phone] Johan Jang MD Unavailable [phone] Yves Koch MD Primary Care Provider Johan Jang MD Unavailable [phone] Yves Koch MD Primary Care Provider Manish Perez NP Unavailable [phone] Encounter Details Date Type Department Care Team (Late st Contact Info) Description 11/11/2020 Telephone [facility] [address] [facility] [address] [place] [address] Benjamin Mesa MD [address] [facility] [address] [place] [address] Social History Tobacco Use Types Packs/Day Years [...] on file Legal Sex Female 6:40 PM NUT SORTER OPERATOR Gender Identity Female 05/19/2022 11:43 PM CDT Sexual Orientation Not on file documented as of this encounter Plan of Treatment Upcoming Encounters Date Type Department Care Team (Late st Contact Info) Description 06/17/2025 12:00 PM NUT SORTER OPERATOR Hospital Encounter [address] [address] Toya Toro MD [address] [facility] [address] [place] [address] 06/17/2025 12:00 PM NUT SORTER OPERATOR - 06/17/2025 12:30 PM NUT SORTER OPERATOR Surgery [address] [address] Toya Toro MD [address] [facility] [address] [place] [address] COLONOSCOPY Scheduled Procedures Name Priority Associated Diagnoses Date/Ti me COLONOSCOPY Family history of colon cancer History of colonic polyps Colitis Encounter for screening colonoscopy 06/17/2025 12:00 PM NUT SORTER OPERATOR documented as of this encounter Visit Diagnoses Not on filedocumented in this encounter Additional Health Concerns Infection Onset Date Last Indicated Resolved Time MRSA 10/16/2020 10/16/2020 09/14/2021 4:00 AM NUT SORTER OPERATOR COVID: Suspected 08/30/2022 09/01/2022 08/31/2022 3:05 AM NUT SORTER OPERATOR Exposure, COVID-19 Comment:Added automatically based on COVID19 lab answers indicating exposure risk 06/09/2023 06/09/2023 06/19/2023 3:06 AM NUT SORTER OPERATOR COVID: Suspected 06/23/2023 06/23/2023 06/23/2023 11:25 PM NUT SORTER OPERATOR C. difficile 06/23/2023 06/23/2023 07/06/2023 4:40 PM NUT SORTER OPERATOR COVID: Suspected 06/26/2023 06/26/2023 06/26/2023 4:30 PM NUT SORTER OPERATOR Diarrhea 08/25/2023 08/25/2023 08/25/2023 1:12 PM NUT SORTER OPERATOR C. difficile Comment:02/05/25 - Patient meets established clinical criteria for discontinuation of C. difficile isolation precautions. 08/25/2023 08/25/2023 02/05/2025 10:54 AM CDT COVID: Suspected 08/27/2023 08/27/2023 08/27/2023 6:52 PM NUT SORTER OPERATOR COVID: Suspected 05/03/2024 05/03/2024 05/03/2024 6:05 PM CDT C. difficile suspected 01/26/2025 01/26/202501/26 8:50 PM CDT Norovirus suspected 01/26/2025 01/26/2025 01/28/20 12:39 AM CDT documented as of this encounter Care Teams Care Associate Relationship Specialty Start Date End Date Danilo Lopez MD PCP - General 10/14/16 11/05/23 Yves Koch MD [address] [facility] ([facility]) Mailstop [phone] [place] [address] PCP - General Family Medicine 11/06/23 02/19/24 Johan Jang MD 4 [facility] [address] [place] [address] PCP - Behavioral Health Psychiatry 02/20/24 4 Yves Koch MD [address] [facility] ([facility]) Mailstop [phone] [place] [address] PCP - General Family Medicine 02/20/24 12/24/24 Yves Koch MD [address] [facility] [address] [place], [place] [address] PCP - General Family Medicine 12/25/24 Chasidy Blanco, RN 4590 [facility] [address] [place] [address] SHOP Outpatient Hospice Rn 05/30/22 06/26/22 Georgie Oliva LCSW [address] [facility] ([facility]) Mailstop [phone] [place] [address] SHOP Outpatient Hospice Rn 06/15/23 06/15/23 Mc Herrera MD [address] [facility] ([facility]) Mailstop [phone] [place] [address] Consulting Physician Infectious Diseases 07/03/23 Loretta Rincon MD PhD [address] [address] Dermatology 11/06/23 Florence Rausch MD 49[address] [facility] [address] [place] [address] Consulting Physician Internal Medicine 11/06/23 Neo Botello MD PhD [address] [place] [address] Consulting Physician Neurosurgery 11/06/23 Sabas Perez MD [address] [place] [address] [address] [place] [address] Web Pressman Obstetrics and Gynecology 11/06/23 Johan Jang MD [address] [place] [address] [address] [place] [address] Consulting Physician Psychiatry 02/20/24 Manish Perez NP [address] [place] [address] [address] [place] [address] Nurse Practitioner Orthopedic Surgery 02/11/25 documented as of this encounter
--- OUTSIDE RECORDS SUMMARY | 2025-03-30 14:13 | XMS_ITS | Encounter Summary ---
Author Organization [facility] Address [address] [facility] [address] [place] [address] Care Team Providers Care Hospital Pharmacy Director Name Role Phone Danilo Lopez MD Primary Care Provider [phone] Danilo Lopez MD Primary Care Provider [phone] Chasidy Blanco RN Unavailable +[phone] Georgie OlivaW Unavailable + [phone] Mc Herrera MD Unavailable + [phone] Yves Koch MD Primary Care Provider Loretta Rincon MD PhD Unavailable Florence Rausch MD Unavailable [phone] Neo Botello MD PhD Unavailable [phone] Sabas Perez MD Unavailable + [phone] Johan Jang MD Unavailable [phone] Yves Koch MD Primary Care Provider Johan Jang MD Unavailable [phone] Yves Koch MD Primary Care Provider Manish Perez APPLICATION DBA Unavailable [phone] Encounter Details Date Type Department Care Team (Late st Contact Info) Description 05/22/2015 Orders Only [facility] Health Information Management [address] [place] [address] Scanning, Provider Social History Tobacco Use Types Packs/Day Years Used Date Smoking Tobacco: Former Alcohol Use Standard Drinks/Week Comments No 0 (1 standard drink = 0.6 oz pur e alcohol) Comments Unknown Sex and Gender Information Value Date Recorded Sex Assigned at Not on file Legal Sex Female 6:40 PM SOFTWARE ENGINEER Gender Identity Female 05/19/2022 11:43 PM CDT Sexual Orientation Not on file documented as of this encounter Plan of Treatment Upcoming Encounters Date Type Department Care Team (Late Contact Info) Description 06/17/2025 12:00 PM SOFTWARE ENGINEER Hospital Encounter [address] [address] Toya Toro MD [address] [place] [address] [address] [place] [address] 06/17/2025 12:00 PM SOFTWARE ENGINEER - 06/17/2025 12:30 PM SOFTWARE ENGINEER Surgery [address] [address] Tyoa Toro MD [address] [place] [address] [address] [place] [address] COLONOSCOPY Scheduled Procedures Name Priority Associated Diagnoses Date/Ti me COLONOSCOPY Family history of colon cancer History of colonic polyps Colitis Encounter for screening colonoscopy 06/17/2025 12:00 PM SOFTWARE ENGINEER documented as of this encounter Procedures Procedure Name Priority Date/Time Associated Diagnosis Comments SCAN - LABS 05/22/2015 documented in this encounter Results * SCAN - LABS (05/22/2015) Provider Scanning Final Result documented in this encounter Visit Diagnoses Not on filedocumented in this encounter Additional Health Concerns Infection Onset Date Last Indicated Resolved Time MRSA 10/16/2020 10/16/2020 09/14/2021 4:00 AM SOFTWARE ENGINEER COVID: Suspected 08/30/2022 09/01/2022 08/31/2022 3:05 AM SOFTWARE ENGINEER Exposure, COVID-19 Comment:Added automatically based on COVID19 lab answers indicating exposure risk 06/09/2023 06/09/2023 06/19/2023 3:[address] COVID: Suspected 06/23/2023 06/23/2023 06/23/2023 11:25 PM SOFTWARE ENGINEER C. difficile 06/23/2023 06/23/2023 07/06/2023 4:40 PM SOFTWARE ENGINEER COVID: Suspected 06/26/2023 06/26/2023 06/26/2023 4:30 PM SOFTWARE ENGINEER Diarrhea 08/25/2023 08/25/2023 08/25/2023 1:12 PM SOFTWARE ENGINEER C. difficile Comment:02/05/25 - Patient meets established clinical criteria for discontinuation of C. difficile isolation precautions. 08/25/2023 08/25/2023 02/05/2025 10:54 AM CDT COVID: Suspected 08/27/2023 08/27/2023 08/27/2023 6:52 PM SOFTWARE ENGINEER COVID: Suspected 05/03/2024 05/03/2024 05/03/2024 6:05 PM CDT C. difficile suspected 01/26/2025 01/26/202501/26 8:50 PM CDT Norovirus suspected 01/26/2025 01/26/2025 01/28/20 12:39 AM CDT documented as of this encounter Care Teams Hospital Pharmacy Director Relationship Specialty Start Date End Date Danilo Lopez MD PCP - General 10/14/16 11/05/23 Danilo Lopez MD PCP - General 11/06/13 10/13/16 Yves Koch MD 4590 [facility] ([facility] Mailstop [phone] [place] [address] PCP - General Family Medicine 11/06/23 02/19/24 Johan Jang MD [address] [place] [address] [address], [place] [address] PCP - Behavioral Health Psychiatry 02/20/24 4 Yves Koch MD [address] [facility] ([facility]) Mailstop [phone] [place] [address] PCP - General Family Medicine 02/20/24 12/24/24 Yves Koch MD [address] [facility] [address] [place], [place] [address] PCP - General Family Medicine 12/25/24 Chasidy Blanco, RN [address] [facility] [address] [place] [address] SHOP Outpatient Pharmacy Tech Customer Service 05/30/22 06/26/22 Georgie Oliva LCSW [address] [facility] ([facility]) Mailstop [phone] [place] [address] SHOP Outpatient Pharmacy Tech Customer Service 06/15/23 06/15/23 Mc Herrera MD [address] [facility] ([facility]) Mailstop [phone] [place] [address] Consulting Physician Infectious Diseases 07/03/23 Loretta Rincon MD PhD [address] [facility] [address] [place] [address] Dermatology 11/06/23 Florence Rausch MD [address] [place] [address] Consulting Physician Internal Medicine 11/06/23 Neo Botello MD PhD [address] [place] [address] Consulting Physician Neurosurgery 11/06/23 Sabas Perez MD [address] [place] [address] [address] [place] [address] Cash Teller Obstetrics and Gynecology 11/06/23 Johan Jang MD [address] [place] [address] [address] [place] [address] Consulting Physician Psychiatry 02/20/24 Manish Perez NP [address] [place] [address] [address] [place] [address] Nurse Practitioner Orthopedic Surgery 02/11/25 documented as of this encounter
--- OUTSIDE RECORDS SUMMARY | 2025-03-30 14:13 | XMS_ITS | Clinical Summary ---
Author Organization [facility] Address [address] [place] [address] Phone Care Team Providers Care Carbide Operator Name Role Phone Danilo Lopez MD Primary Care Provider [phone] Allergies No known active allergies Medications ValACYclovir HCl Powder Take 1 mg by mouth daily. Active esomeprazole (NexIUM) 20 MG CAPSULE DELAYED RELEASE Take 20 mg by mouth daily. Active DULoxetine (CYMBALTA) [address] Particles Take 60 mg by mouth daily. Active oxybutynin (DITROPAN) 5 MG TabletIndicatio ns:Urge incontinence,Ur inary urgency,Urinary frequency Take 1 Tab by mouth 2 times daily. 180 Tab 3 7 Active Additional Information Patient not taking.Informant: Self, Reported on 09/03/2021 HYDROcodone-cipriano taminophen (VICODIN ES) 7.5-750 MG Tablet Take 1 Tab by mouth every 6 hours as needed for Pain. Active cetirizine (ZyrTEC) 10 MG Tablet Take 10 mg by mouth daily. Active escitalopram (LEXAPRO) 10 MG Tablet Take 10 mg by mouth daily. Active HYDROcodone-cipriano taminophen (NORCO) 5-325 MG Tablet Take 1-2 Tabs by mouth every 4 hours as needed for Pain. 40 Tab 7 Active docusate sodium (COLACE) 100 MG Capsule Take 1 Cap by mouth 2 times daily as needed for Constipation. To be held for loose stools/diarrhea. 180 Cap 7 Active Additional Information Patient not taking.Informant: Self, Reported on 09/03/2021 guaiFENesin-cod eine (Cheratussin AC) 100-10 MG/5ML SyrupIndication s:Bronchitis Take 5 mL by mouth every 4 hours as needed for Cough. 120 mL 0 Active Additional Information Patient not taking.Informant: Self, Reported on 09/03/2021 HYDROcodone-cipriano taminophen (NORCO) 7.5-325 MG TabletIndicatio ns:S/P lumbar discectomy Take 1 Tablet by mouth every 6 hours as needed for Moderate or more severe pain. 30 Tablet 2 Active cyclobenzaprine (FLEXERIL) 5 MG Tablet Take 1 Tablet by mouth 3 times daily as needed for Muscle spasms. 28 Tablet 2 Active Additional Information Patient not taking.Reported on 12/21/2021 tiZANidine (ZANAFLEX) 4 MG Tablet TAKE 1 TABLET BY MOUTH TWICE A DAY NEEDED FOR MUSCLE SPASMS 2 Active valACYclovir (VALTREX) 1 GM Tablet Take 1,000 mg by mouth. 1 Active pregabalin (LYRICA) 200 MG Capsule TAKE 1 CAPSULE BY MOUTH TWICE A DAY 2 Active prazosin (MINIPRESS) 1 MG Capsule TAKE 1 CAPSULE BY MOUTH EVERY NIGHT AT BEDTIME 2 Active PARoxetine (PAXIL) 40 MG Tablet Take 40 mg by mouth daily. 2 Active busPIRone (BUSPAR) 10 MG Tablet Take 10 mg by mouth. Active Active Problems Problem Noted Date Diagnosed Date microdiscectomy at lumbar5/sacral1 09/06/2021 JESSICA (stress urinary incontinence, female) 2016 Fibromyalgia Encounters Date Type Department Care Team Description 02/21/2025 [facility]phone [facility] [address] [place] [address] Minnie Lorenzo, PT Appointment (Same-day cancel) 02/18/2025 2:00 PM CDT Physical [facility] [address] [place] [address] Boris Sweeney MD Critchfield, Kelsey M, PT S/P right rotator cuff repair (Primary Dx); Right shoulder pain; Decreased ROM of right shoulder; Shoulder weakness Discharge Disposition: Discharged to home or Selfcare 02/18/2025 Plan of Care Documentation [facility] [address] [place] [address] 02/18/2025 Travel 02/14/2025 Transcribe Orders [facility] [address] [place] [address] Boris Sweeney MD S/P right rotator cuff repair (Primary Dx) from Last 3 Months Family History Relation Name Status Comments Father Alive Mother Alive Social History Tobacco Use Types Packs/Day Years Used Date Smoking Tobacco: Former Cigarettes 2019 Smokeless Tobacco: Never Tobacco Cessation:Ready to Q uit: Yes; Counseling Given: Yes Alcohol Use Standard Drinks/Week Comments Not Currently [...] Sign Reading Time Taken Comments Blood Pressure 138/72 12/21/2021 12:37 PM CDT Pulse 77 09/06/2021 4:15 PM PRESS SMITH HELPER Temperature 36.4 C (97.5 F) 09/06/2021 3:41 PM PRESS SMITH HELPER Respiratory Rate 17 09/06/2021 3:41 PM PRESS SMITH HELPER Oxygen Saturation 95% 09/06/2021 4:15 PM PRESS SMITH HELPER Inhaled Oxygen Concentration - - Weight 93.4 kg (206 lb) 12/21/2021 12:37 PM CDT Height 170.2 cm (5' 7) 12/21/2021 12:37 PM CDT Body Mass Index 32.26 12/21/2021 12:37 PM CDT Plan of Treatment Health Maintenance Due Date Last Done Comments Hepatitis C Virus (HCV) Screening 1967 Hepatitis B Immunization (1 of 3 - 19+ 3-dose series) 1986 Pap Smear 1988 Cervical Cancer Screening (CCS) 1997 HPV/Cotest 1997 Cologuard 2012 Colonoscopy 2012 Pneumococcal Immunization (50+ years) (1 of 1 - PCV) 2017 Mammogram 12/21/2023 12/20/2022, 02/15, 07/26/2017 Colorectal Cancer Screening 06/27/2024 Immunochemical Fecal Occult Blood 06/27/2024 06/27/2023 Influenza Immunization (#1) 03/17/202504/16, 05/21/2022, 04/27/2021, Additional history exists SARS-COV-2 Immunization (2024- season) 2025 05/03/2023, 12/07/2020, 11/04/2020 Respiratory Syncytial Virus (RSV) Immunization (Adult) (1 - 1-dose 75+ series) 2042 DTaP/Tdap/Td Immunization Discontinued 2020, 05/22/2014, 11/14/2006 TdaP Immunization Completed 01/17/2021, 05/22/2014 Zoster Immunization Completed 10/15/2021, Lung Cancer Screening Discontinued 06/27/2023 , 06/24/2023, 06/07/2023, Additional history exists Human Papillomavirus (HPV) Immunization Aged Out No longer eligible based on patient's age to complete this topic Meningococcal Immunization (ACWY) Aged Out No longer eligible based on patient's age to complete this topic Rotavirus Immunization Aged Out No lo nger eligible based on patient's age to complete this topic Medical Devices Implanted Type Area Ore Miner Blasting Device Identifier Shelf Expiration Date Model / Serial / Lot Implant Sling Miduretheral Obtryx Ii Sherman - [id number] Implanted:Qty: 1 on 05/30/2017 by Robin Garcia MD at [facility] IMPLANT N/A: Peritoneum [employer] / CARDIAC RH 06/28/2019 [id number] / [id number] / [id number] Description:VAGINAL/PERINEUM Insurance [place] [employer] Advance Directives Documents on File Type Date Recorded Patient Credit Collection Specialist Expl anation [place] Surrogate Physician Appointment 10/13/2021 1:06 PM MRI L-Spine Results 10/11/21 [facility] Care Teams Carbide Operator Relationship Specialty Start Date End Date Danilo Lopez MD PCP - General Internal Medicine 03/16/17
--- OUTSIDE RECORDS SUMMARY | 2025-03-30 14:13 | XMS_ITS | Encounter Summary ---
Author Organization [facility] Address [address] [facility] [place] [address] Phone Care Team Providers Care Data Operations Leader Name Role Phone Danilo Lopez MD Primary Care Provider [phone] Encounter Details Date Type Department Care Team (Late st Contact Info) Description 08/27/2021 Transcribe Orders [facility] Periop [address] [place] [address] Guanako Kenney MD [address] [place] [address] Preop testing (Primary Dx) Social History Tobacco Use Types Packs/Day Years Used Date Smoking Tobacco: Every Day Cigarettes Smokeless Tobacco: Never Alcohol Use Standard Drinks/Week Comments Yes 0 (1 standard drink = 0.6 oz pur e alcohol) socially Sexually Active Control Partners Comments Yes Male Comments No Sex and Gender Information Value Date Recorded Sex Assigned at Not on file Legal Sex Female 11:07 PM CDT Gender Identity Not on file Sexual Orientation Not on file COVID-19 Exposure Response Date Recorded In the last month, have you been in contact with someone who was confirmed or suspected to have Coronavirus / COVID-19? No / Unsure 08/16/2021 2:14 PM FIRE CONTROL OFFICER documented as of this encounter Plan of Treatment Not on file documented as of this encounter Results * TYPE & SCREEN (CROSSMATCH CONVERTIBLE) (09/06/2021 11:42 AM FIRE CONTROL OFFICER) ABO TYPING AB 09/06/2021 12:50 PM FIRE CONTROL OFFICER [facility] RH Positive 09/06/2021 12:50 PM FIRE CONTROL OFFICER [facility] ABSC Negative 09/06/2021 12:50 PM FIRE CONTROL OFFICER [facility] Blood Venipuncture / Unknown 09/06/2021 11:42 AM FIRE CONTROL OFFICER 09/06/2021 12:00 PM FIRE CONTROL OFFICER us Guanako Kenney MD BLOOD BANK ORDERABLES Edite d Result - Final [facility] [address] [place] [address], documented in this encounter Visit Diagnoses Diagnosis Preop testing- Primary Preoperative examination, unspecified documented in this encounter Care Teams Data Operations Leader Relationship Specialty Start Date End Date Danilo Lopez MD PCP - General Internal Medicine 03/16/17 documented as of this encounter
[2025-03-30 14:14] VITALS: BP 125/63; PULSE 106; RESP 18; TEMP 36.1; O2SAT 98
--- NOTE | 2025-03-30 14:36 | ED_ITS ---
HPI - Wound/Laceration General Chief Complaint: Wound/Laceration Stated Complaint: right hand laceration Time Seen by Provider: 03/30/25 14:32 Source: patient and RN notes reviewed Mode of arrival: ambulatory Limitations: no limitations History of Present Illness HPI narrative: Patient presents today with a laceration to the palm of her right hand that was sustained just prior to arrival while cutting potatoes on a mandolin. Denies numbness or tingling. She is up-to-date on her tetanus vaccine. Related Data Home Medications ?Medication ?Instructions ?Recorded ?Confirmed ?Last Taken ?Type esomeprazole magnesium 20 mg 20 mg PO DAILY 06/16/21 0 03/24/22 Unknown History capsule,delayed release (Nexium 24HR) paroxetine HCl 40 mg tablet 40 mg PO DAILY 06/16/21 Unknown History valacyclovir 1 gram tablet 1 mg PO DAILY 06/16/2103/07 Unknown History atorvastatin 10 mg tablet 10 mg PO DAILY 03/24/2203/07 Unknown History prazosin 1 mg capsule 1 mg PO DAILY 03/24/2203/24 Unknown History buspirone 10 mg tablet mg 03/30/25 Unknown History cyclobenzaprine 5 mg tablet mg 03/30/25 Unknown Histo ry empagliflozin 25 mg tablet mg 03/30/25 Unknown Histor y (Jardiance) hydrocodone 5 mg-acetaminophen 325 tablet 03/30/25 Un known History mg tablet pregabalin 150 mg capsule mg 03/30/25 Unknown History Allergies Allergy/AdvReac Type Severity Reaction Status Date / Time No Known Allergies Allergy Verified 03/30/25 14:23 [facility] Past Medical History Medical History (Updated 03/30/25 @ 15:08 by Judith Neff, KRISTEN, BC) History of Clostridium difficile infection Back pain Bilateral hand pain Fibromyalgia GERD (gastroesophageal reflux disease) Arthritis Anxiety IBS (irritable bowel syndrome) Migraines Depression Surgical History Surgical History History of tonsillectomy History of appendectomy History of cholecystectomy History of total right knee replacement Family History Family History Mother Depression Anxiety Father Hypertension Grandparent Anxiety Depression Heart attack Grandparent Dementia Grandparent Carcinoma of colon Alzheimer disease Social History Social History Smoking packs per day: 0.5 Smoking cigarettes per day: 10.0 Years smoked: 18 Smoking pack-years: 9.00 Smoking status: Former smoker Tobacco type: cigarettes Alcohol intake: current Alcohol use details: Wine- occasionally Substance use: never Substance use type: does not use Living arrangements: alone Additional living arrangements comments: Occupation/Education: occupation Gender identity (if verbalized by the patient): Female Comments At time of signature, I have reviewed and agree with nursing past medical, surgical, social and family history unless otherwise noted. Please see nursing chart for further information. There is no relevant family history pertinent to the presenting complaint Exam Narrative: GENERAL: Well-appearing, well-nourished, and in no acute distress. HEAD: Normocephalic, atraumatic. EYES: EOMI. No redness or drainage. Conjunctivae normal. ENT: Mucous membranes pink and moist. NECK: Normal AROM. CHEST: No respiratory distress. EXTREMITIES: Right hand: 4.5cm partial-thickness flap laceration to the thenar eminence. Distal sensation intact. Capillary refill normal. Full range of motion of the thumb. SKIN: Warm, dry, no rash. Capillary refill normal. Normal skin turgor. NEURO: No focal deficits. Alert and oriented x3. Gait steady. PSYCH: Normal affect. No signs of depression or anxiety. Course Course Level of Care: Express Care Visit Vital Signs Vital signs: Vital Signs Temperature 97 F L 03/30/25 14:14 Pulse Rate 106 H 03/30/25 14:14 Respiratory Rate 18 03/30/25 14:14 Blood Pressure 125/63 03/30/25 14:14 Pulse Oximetry 98 03/30/25 14:14 Oxygen Delivery Room Air 03/30/25 14:14 Temperature 97 F L 03/30/25 14:14 Pulse Rate 106 H 03/30/25 14:14 Respiratory Rate 18 03/30/25 14:14 Blood Pressure 125/63 03/30/25 14:14 Pulse Oximetry 98 03/30/25 14:14 Oxygen Delivery Room Air 03/30/25 14:14 Review Procedures Laceration Laceration 1: Date: 03/30/25 Time: 14:45 Site: hand Side (If applicable): right Size (cm): 4.5 Description: flap Depth: simple, single layer Local Anesthetic: lidocaine 1% Amount of anesthesia used (mL): 4 Pre-repair: wound explored and irrigated ====== Skin Level ====== Skin layer closed with: nylon Size (cm): 5-0 Number of sutures: 7 Technique: simple, interrupted ====== Subcutaneous Layer ====== ====== Muscle Layer ====== ====== Tendon Layer ====== Dressing: Non adherent dressing. MDM - Wound/Laceration MDM Narrative Medical decision making narrative: 59-year-old female patient presents today with a laceration to the right thenar eminence that was sustained just prior to arrival on a mandcarolina slicer. Upon exam, patient has a 4.5 cm flap laceration. Neurovascularly intact. Seven sutures placed without difficulty. Care instructions given. Vital signs stable. Respiratory guidance given. Differential Diagnosis Differential diagnosis: Likely laceration and avulsion of skin Critical Care Time Critical Care Time Critical Care Time: No Discharge Plan Discharge Clinical Impression: Laceration of hand, right Qualifiers: Encounter type: initial encounter Foreign body presence: without foreign body Qualified Code(s): S61.411A - Laceration without foreign body of right hand, initial encounter Patient Disposition: Home Condition: Stable Instructions: Care For Your Stitches (DC), Laceration (DC) Additional Instructions: Your sutures need to be removed in 7-10 days. Wear the dressing that has been applied for the first 24 hours to allow a scab to start forming. After this, you may remove and wash as normal with soap and water. Do NOT wash with per oxide or alcohol. Do NOT apply antibiotic ointment. Do not submerge your sutures in standing water such as pools, hot tubs, or sinks until they are removed. Take tylenol or ibuprofen at home for pain, if able. Follow up with your PCP with any signs of infection such as redness, swelling, increased pain, or drainage. Patient Language: Italian Prescriptions: No Action atorvastatin 10 mg tablet 10 mg PO DAILY prazosin 1 mg capsule 1 mg PO DAILY paroxetine HCl 40 mg tablet 40 mg PO DAILY valacyclovir 1 gram tablet 1 mg PO DAILY esomeprazole magnesium [Nexium 24HR] 20 mg Capsule,Delayed Release(Dr/Ec) 20 mg PO DAILY hydrocodone-acetaminophen 5-325 mg tablet buspirone 10 mg tablet cyclobenzaprine 5 mg tablet pregabalin 150 mg capsule Jardiance 25 mg tablet Follow-up/Referrals: August,Yves Bailey MD [Primary Care Provider, Unknown] Time of Disposition: 15:07
[2025-03-30] MEDS: LIDOCAINE 1% LOCAL INJ 2 ML AMPUL 4 ML INFILTRATE (14:39)
== END 2025-03-30 15:16 | disposition home or self-care (01) ==
PROVIDERS: Emergency Provider Nurse Practitioner; PCP Family Medicine
DX: S61.411A Laceration without foreign body of right hand, initial encounter (principal); W27.4XXA Contact with kitchen utensil, initial encounter; Z87.891 Personal history of nicotine dependence; M79.7 Fibromyalgia; K21.9 Gastro-esophageal reflux disease without esophagitis; M19.90 Unspecified osteoarthritis, unspecified site; Z96.651 Presence of right artificial knee joint; F41.9 Anxiety disorder, unspecified; F32.A Depression, unspecified
CPT/HCPCS: 12002; 99212; G0463; J2003

== ENCOUNTER 2025-07-06 08:13 | Emergency (ER) | payer MEDICARE, MEDICAID, SELFPAY ==
--- OUTSIDE RECORDS SUMMARY | 2025-07-06 08:15 | XMS_ITS | Encounter Summary ---
Author Organization [facility] Medical Group Address [address] [facility] [address] [place] [address] Care Team Providers Care Scaffold Builder Name Role Phone Danilo Lopez MD Primary Care Provider [phone] Danilo Lopez MD Primary Care Provider [phone] Chasidy Blanco RN Unavailable +[phone] Georgie OlivaW Unavailable + [phone] Mc Herrera MD Unavailable + [phone] Yves Koch MD Primary Care Provider Loretta Rincon MD PhD Unavailable Florence Rausch MD Unavailable [phone] Neo Botello MD PhD Unavailable [phone] Sabas Perez MD Unavailable + [phone] Johan Jang MD Unavailable [phone] Yves oKch MD Primary Care Provider Johan Jang MD Unavailable [phone] Yves Koch MD Primary Care Provider Manish Perez WEIR FISHER Unavailable [phone] Encounter Details Date Type Department Care Team (Late st Contact Info) Description 05/22/2015 Orders Only [facility] Health Information Management [address] [place] [address] Scanning, Provider Social History Tobacco Use Types Packs/Day Years Used Date Smoking Tobacco: Former Alcohol Use Standard Drinks/Week Comments No 0 (1 standard drink = 0.6 oz pur e alcohol) Comments Unknown Sex and Gender Information Value Date Recorded Sex Assigned at Not on file Legal Sex Female 6:40 PM CONTROL AND RECOVERY COMBAT RESCUE Gender Identity Female 05/19/2022 11:43 PM CDT Sexual Orientation Not on file documented as of this encounter Plan of Treatment Not on file documented as of this encounter Procedures Procedure Name Priority Date/Time Associated Diagnosis Comments SCAN - LABS 05/22/2015 documented in this encounter Results * SCAN - LABS (05/22/2015) us Provider Scanning Final Result documented in this encounter Visit Diagnoses Not on filedocumented in this encounter Additional Health Concerns Infection Onset Date Last Indicated Resolved Time MRSA 10/16/2020 10/16/2020 09/14/2021 4:00 AM CONTROL AND RECOVERY COMBAT RESCUE COVID: Suspected 08/30/2022 09/01/2022 08/31/2022 3:05 AM CONTROL AND RECOVERY COMBAT RESCUE Exposure, COVID-19 Comment:Added automatically based on COVID19 lab answers indicating exposure risk 06/09/2023 06/09/2023 06/19/2023 3:[address] COVID: Suspected 06/23/2023 06/23/2023 06/23/2023 11:25 PM CONTROL AND RECOVERY COMBAT RESCUE C. difficile 06/23/2023 06/23/2023 07/06/2023 4:40 PM CONTROL AND RECOVERY COMBAT RESCUE COVID: Suspected 06/26/2023 06/26/2023 06/26/2023 4:30 PM CONTROL AND RECOVERY COMBAT RESCUE Diarrhea 08/25/2023 08/25/2023 08/25/2023 1:12 PM CONTROL AND RECOVERY COMBAT RESCUE C. difficile Comment:02/05/25 - Patient meets established clinical criteria for discontinuation of C. difficile isolation precautions. 08/25/2023 08/25/2023 02/05/2025 10:54 AM CDT COVID: Suspected 08/27/2023 08/27/2023 08/27/2023 6:52 PM CONTROL AND RECOVERY COMBAT RESCUE COVID: Suspected 05/03/2024 05/03/2024 05/03/2024 6:05 PM CDT C. difficile suspected 01/26/2025 01/26/202501/26 8:50 PM CDT Norovirus suspected 01/26/2025 01/26/2025 01/28/20 12:39 AM CDT documented as of this encounter Care Teams Scaffold Builder Relationship Specialty Start Date End Date Danilo Lopez MD PCP - General 10/14/16 11/05/23 Danilo Lopez MD PCP - General 11/06/13 10/13/16 Yves Koch MD [address] [facility] ([facility] Mailstop [phone] [place] [address] PCP - General Family Medicine 11/06/23 02/19/24 Johan Jang MD [address] [place] [address] PCP - Behavioral Health Psychiatry 02/20/24 4 Yves Koch MD [address] [facility] ([facility] Mailstop [phone] [place] [address] PCP - General Family Medicine 02/20/24 12/24/24 Yves Koch MD [address] [place] [address] PCP - General Family Medicine 12/25/24 Chasidy Blanco, RN [address] [facility] [address] [place] [address] SHOP Outpatient Brim Rounder 05/30/22 06/26/22 Georgie Oliva LCSW [address] [facility]) Mailstop [phone] [place] [address] SHOP Outpatient Brim Rounder 06/15/23 06/15/23 Mc Herrera MD [address] [facility] ([facility] Mailstop [phone] [place] [address] Consulting Physician Infectious Diseases 07/03/23 Loretta Rincon MD PhD [address] [address] Dermatology 11/06/23 Florence Rausch MD [facility] [address] [address] Consulting Physician Internal Medicine 11/06/23 Neo Botello MD PhD [address] [place] [address] [address] [place] [address] Consulting Physician Neurosurgery 11/06/23 Sabas Perez MD [address] [place] [address] DR TARA Cazares [facility] [address] [place] [address] Patient Services Manager Obstetrics and Gynecology 11/06/23 Johan Jang MD [address] [place] [address] DR ENGEL [facility] [place] [address] Consulting Physician Psychiatry 02/20/24 Manish Perez NP [address] [place] [address] DR ENGEL [address] [place] [address] Nurse Practitioner Orthopedic Surgery 02/11/25 documented as of this encounter
--- OUTSIDE RECORDS SUMMARY | 2025-07-06 08:15 | XMS_ITS | Encounter Summary ---
Author Organization [facility] Address [address] [place] [address] Phone Care Team Providers Care Rockboard Lather Name Role Phone Danilo Lopez MD Primary Care Provider [phone] Encounter Details Date Type Department Care Team (Late st Contact Info) Description 08/27/2021 Transcribe Orders [facility] Periop [address] [place] [address] Guanako Kenney MD [address] [place] [address] Preop testing (Primary Dx) Social [...] COVID-19? No / Unsure 08/16/2021 2:14 PM PAPER PRODUCTS PRINTER documented as of this encounter Plan of Treatment Not on file documented as of this encounter Results * TYPE & SCREEN (CROSSMATCH CONVERTIBLE) (09/06/2021 11:42 AM PAPER PRODUCTS PRINTER) ABO TYPING AB 09/06/2021 12:50 PM PAPER PRODUCTS PRINTER [facility] RH Positive 09/06/2021 12:50 PM PAPER PRODUCTS PRINTER [facility] ABSC Negative 09/06/2021 12:50 PM PAPER PRODUCTS PRINTER [facility] Blood Venipuncture / Unknown 09/06/2021 11:42 AM PAPER PRODUCTS PRINTER 09/06/2021 12:00 PM PAPER PRODUCTS PRINTER us Guanako Kenney MD BLOOD BANK ORDERABLES Edite d Result - Final [facility] [address] [place] [address], documented in this encounter Visit Diagnoses Diagnosis Preop testing- Primary Preoperative examination, unspecified documented in this encounter Care Teams Rockboard Lather Relationship Specialty Start Date End Date Danilo Lopez MD PCP - General Internal Medicine 03/16/17 documented as of this encounter
--- OUTSIDE RECORDS SUMMARY | 2025-07-06 08:15 | XMS_ITS | Encounter Summary ---
Author Organization [facility] Medical Group Address [address] [facility] [address] [place] [address] Care Team Providers Care A/C Tech Name Role Phone Danilo Lopez MD Primary Care Provider [phone] Danilo Lopez MD Primary Care Provider [phone] Chasidy Blanco RN Unavailable [phone] Georgie OlivaW Unavailable + [phone] Mc Herrera MD Unavailable + [phone] Yves Koch MD Primary Care Provider Loretta Rincon MD PhD Unavailable Florence Rausch MD Unavailable [phone] Neo Botello MD PhD Unavailable [phone] Sabas Perez MD Unavailable + [phone] Johan Jang MD Unavailable [phone] Yves Koch MD Primary Care Provider Johan Jang MD Unavailable [phone] Yves Koch MD Primary Care Provider Manish Perez FILM BOOKER Unavailable [phone] Encounter Details Date Type Department Care Team (Late st Contact Info) Description 05/19/2015 Orders Only [facility] Health Information Management [address] [place] [address] Scanning, Provider Social History Tobacco Use Types Packs/Day Years Used Date Smoking Tobacco: Former Alcohol Use Standard Drinks/Week Comments No 0 (1 standard drink = 0.6 oz pur e alcohol) Comments Unknown Sex and Gender Information Value Date Recorded Sex Assigned at Not on file Legal Sex Female 6:40 PM DIESEL TECHNOLOGY INSTRUCTOR Gender Identity Female 05/19/2022 11:43 PM CDT Sexual Orientation Not on file documented as of this encounter Plan of Treatment Not on file documented as of this encounter Procedures Procedure Name Priority Date/Time Associated Diagnosis Comments SCAN - LABS 05/19/2015 documented in this encounter Results * SCAN - LABS (05/19/2015) us Provider Scanning Final Result documented in this encounter Visit Diagnoses Not on filedocumented in this encounter Additional Health Concerns Infection Onset Date Last Indicated Resolved Time MRSA 10/16/2020 10/16/2020 09/14/2021 4:00 AM DIESEL TECHNOLOGY INSTRUCTOR COVID: Suspected 08/30/2022 09/01/2022 08/31/2022 3:05 AM DIESEL TECHNOLOGY INSTRUCTOR Exposure, COVID-19 Comment:Added automatically based on COVID19 lab answers indicating exposure risk 06/09/2023 06/09/2023 06/19/2023 3:[address] COVID: Suspected 06/23/2023 06/23/2023 06/23/2023 11:25 PM DIESEL TECHNOLOGY INSTRUCTOR C. difficile 06/23/2023 06/23/2023 07/06/2023 4:40 PM DIESEL TECHNOLOGY INSTRUCTOR COVID: Suspected 06/26/2023 06/26/2023 06/26/2023 4:30 PM DIESEL TECHNOLOGY INSTRUCTOR Diarrhea 08/25/2023 08/25/2023 08/25/2023 1:12 PM DIESEL TECHNOLOGY INSTRUCTOR C. difficile Comment:02/05/25 - Patient meets established clinical criteria for discontinuation of C. difficile isolation precautions. 08/25/2023 08/25/2023 02/05/2025 10:54 AM CDT COVID: Suspected 08/27/2023 08/27/2023 08/27/2023 6:52 PM DIESEL TECHNOLOGY INSTRUCTOR COVID: Suspected 05/03/2024 05/03/2024 05/03/2024 6:05 PM CDT C. difficile suspected 01/26/2025 01/26/202501/26 8:50 PM CDT Norovirus suspected 01/26/2025 01/26/2025 01/28/20 12:39 AM CDT documented as of this encounter Care Teams A/C Tech Relationship Specialty Start Date End Date Danilo Lopez MD PCP - General 10/14/16 11/05/23 Danilo Lopez MD PCP - General 11/06/13 10/13/16 Yves Koch MD [address] [facility] ([facility]) Mailstop [phone] [place] [address] PCP - General Family Medicine 11/06/23 02/19/24 Johan Jang MD [address] [place] [address] PCP - Behavioral Health Psychiatry 02/20/24 4 Yves Koch MD [address] [facility] ([facility]) Mailstop [phone] [place] [address] PCP - General Family Medicine 02/20/24 12/24/24 Yves Koch MD [address] [place] [address] PCP - General Family Medicine 12/25/24 Chasidy Blanco, RN [address] [facility] [address] [place] [address] SHOP Outpatient Excellence Manager 05/30/22 06/26/22 Georgie Oliva LCSW [address] [facility]) Mailstop [phone] [place] [address] SHOP Outpatient Excellence Manager 06/15/23 06/15/23 Mc Herrera MD [address] [facility] ([facility]) Mailstop [phone] [place] [address] Consulting Physician Infectious Diseases 07/03/23 Loretta Rincon MD PhD [address] [address] Dermatology 11/06/23 Florence Rausch MD [facility] [address] [address] Consulting Physician Internal Medicine 11/06/23 Neo Botello MD PhD [address] [place] [address] [address] [place] [address] Consulting Physician Neurosurgery 11/06/23 Sabas Perez MD [address] [place] [address] DR TARA Cazares [facility] [address] [place] [address] Quotation Checker Obstetrics and Gynecology 11/06/23 Johan Jang MD [address] [place] [address] DR ENGEL [facility] [place] [address] Consulting Physician Psychiatry 02/20/24 Manish Perez NP [address] [place] [address] DR ENGEL [address] [place] [address] Nurse Practitioner Orthopedic Surgery 02/11/25 documented as of this encounter
--- OUTSIDE RECORDS SUMMARY | 2025-07-06 08:15 | XMS_ITS | Encounter Summary ---
Author Organization [facility] Medical Group Address [address] [facility] [address] [place] [address] Care Team Providers Care Surveyor Oil Well Directional Name Role Phone Danilo Lopez MD Primary Care Provider [phone] Danilo Lopez MD Primary Care Provider [phone] Chasidy Blanco RN Unavailable [phone] Georgie OlivaW Unavailable + [phone] Mc Herrera MD Unavailable + [phone] Yves Koch MD Primary Care Provider Loretta Rincon MD PhD Unavailable Florence Rausch MD Unavailable [phone] Neo Botello MD PhD Unavailable [phone] Sabas Perez MD Unavailable + [phone] Johan Jang MD Unavailable [phone] Yves Koch MD Primary Care Provider Johan Jang MD Unavailable [phone] Yves Koch MD Primary Care Provider Manish Perez MALT HOUSE OPERATOR Unavailable [phone] Encounter Details Date Type Department Care Team (Late st Contact Info) Description 04/28/2015 [facility] [address] [place] [address] Scanning, Provider Social History Tobacco Use Types Packs/Day Years Used Date Smoking Tobacco: Former Alcohol Use Standard Drinks/Week Comments No 0 (1 standard drink = 0.6 oz pur e alcohol) Comments Unknown Sex and Gender Information Value Date Recorded Sex Assigned at Not on file Legal Sex Female 6:40 PM UNDERWRITING INTERN Gender Identity Female 05/19/2022 11:43 PM CDT [...] Time MRSA 10/16/2020 10/16/2020 09/14/2021 4:00 AM UNDERWRITING INTERN COVID: Suspected 08/30/2022 09/01/2022 08/31/2022 3:05 AM UNDERWRITING INTERN Exposure, COVID-19 Comment:Added automatically based on COVID19 lab answers indicating exposure risk 06/09/2023 06/09/2023 06/19/2023 3:[address] COVID: Suspected 06/23/2023 06/23/2023 06/23/2023 11:25 PM UNDERWRITING INTERN C. difficile 06/23/2023 06/23/2023 07/06/2023 4:40 PM UNDERWRITING INTERN COVID: Suspected 06/26/2023 06/26/2023 06/26/2023 4:30 PM UNDERWRITING INTERN Diarrhea 08/25/2023 08/25/2023 08/25/2023 1:12 PM UNDERWRITING INTERN C. difficile Comment:02/05/25 - Patient meets established clinical criteria for discontinuation of C. difficile isolation precautions. 08/25/2023 08/25/2023 02/05/2025 10:54 AM CDT COVID: Suspected 08/27/2023 08/27/2023 08/27/2023 6:52 PM UNDERWRITING INTERN COVID: Suspected 05/03/2024 05/03/2024 05/03/2024 6:05 PM CDT C. difficile suspected 01/26/2025 01/26/202501/26 8:50 PM CDT Norovirus suspected 01/26/2025 01/26/2025 01/28/20 12:39 AM CDT documented as of this encounter Care Teams Surveyor Oil Well Directional Relationship Specialty Start Date End Date Danilo Lopez MD PCP - General 10/14/16 11/05/23 Danilo Lopez MD PCP - General 11/06/13 10/13/16 Yves Koch MD [address] [facility] ([facility]) Mailstop [phone] [place] [address] PCP - General Family Medicine 11/06/23 02/19/24 Johan Jang MD [address] [place] [address] DR ENGEL [address] [place] [address] PCP - Behavioral Health Psychiatry 02/20/24 4 Yves Koch MD [address] [facility] ([facility]) Mailstop [phone] [place] [address] PCP - General Family Medicine 02/20/24 12/24/24 Yves Koch MD [address] [facility] [address] [place], [place] [id number] PCP - General Family Medicine 12/25/24 Chasidy Blanco, RN [address] [facility] [address] [place] [address] SHOP Outpatient Patrol Police Lieutenant 05/30/22 06/26/22 Georgie Oliva LCSW [address] [facility] ([facility]) Mailstop [phone] [place] [address] SHOP Outpatient Patrol Police Lieutenant 06/15/23 06/15/23 cM Herrera MD [address] [facility] ([facility]) Mailstop [phone] [place] [address] Consulting Physician Infectious Diseases 07/03/23 Loretta Rincon MD PhD [address] [address] Dermatology 11/06/23 Florence Rausch MD [address] [address] Consulting Physician Internal Medicine 11/06/23 Neo Botello MD PhD [address] [facility] [address] [place] [address] Consulting Physician Neurosurgery 11/06/23 Sabas Perez MD [address] [place] [address] DR TARA Cazares [facility] [address] [place] [address] Seasonal Greenery Bundler Obstetrics and Gynecology 11/06/23 Johan Jang MD [address] [place] [address] [address] ENGEL [address] [place] [address] Consulting Physician Psychiatry 02/20/24 Manish Perez NP [address] [facility] [address] [place] [address] Nurse Practitioner Orthopedic Surgery 02/11/25 documented as of this encounter
--- OUTSIDE RECORDS SUMMARY | 2025-07-06 08:15 | XMS_ITS | Clinical Summary ---
Author Organization [employer] [facility] linic Address [address] [place] [address] Care Team Providers Care Artist Representative Name Role Phone Danilo Lopez MD Primary Care Provider Social History Tobacco Use Types Packs/Day Years Used Date Smoking Tobacco: Never Assessed Comments Unknown Sex and Gender Information Value Date Recorded Sex Assigned at Not on file Legal Sex Female 11:00 AM EDT Gender Identity Not on file Sexual Orientation Not on file Plan of Treatment Not on file Medical Devices Not on file Care Teams Artist Representative Relationship Specialty Start Date End Date Danilo Lopez MD [address] [place] [address] DR ENGEL [address] [place] [phone] PCP - General Internal Medicine 04/22/20
--- OUTSIDE RECORDS SUMMARY | 2025-07-06 08:15 | XMS_ITS | Clinical Summary ---
Author Organization [facility] Address [address] [place] [address] Care Team Providers Care Blast Furnace Helper Name Role Phone Yves Koch MD Primary Care Provider Allergies Active Allergy Reactions Criticality Noted Date Comments Oxycodone Nausea 11/27/2024 And vomiting Medications busPIRone (BUSPAR) 10 MG tablet Take 10 mg by mouth in the morning and 10 mg in the evening. 5 Active atorvastatin (LIPITOR) 10 MG tablet Take 10 mg by mouth 1 (one) time each day Active cyclobenzaprine (FLEXERIL) 10 MG tablet Take 10 mg by mouth 3 (three) times a day if needed 5 Active Docusate Sodium (DSS) 100 MG capsule Take 100 mg by mouth 2 (two) times a day if needed 7 Active Empagliflozin 25 MG tablet Take 25 mg by mouth in the morning. 5 Active esomeprazole (NexIUM) [address] capsule Take 20 mg by mouth in the morning. Active fluticasone (FLONASE) 50 MCG/ACT nasal spray Administer 2 sprays into affected nostril(s) in the morning. 5 Active HYDROcodone-cipriano taminophen (NORCO) 5-325 MG per tablet Take 1 tablet by mouth every 6 (six) hours if needed Active PARoxetine (PAXIL) 30 MG tablet Take 30 mg by mouth every morning 5 04/20/20 26 Active pregabalin (LYRICA) 150 MG capsule Take 150 mg by mouth in the morning and 150 mg in the evening. 5 07/29/19 26 Active Active Problems No known active problems Encounters Date Type Department Care Team Description 04/28/2025 3:30 PM CDT Office Visit [facility]. [address] [facility] [address] [place] [address] John Healy MD Chronic kidney disease, stage 2 (mild) (Primary Dx); Hypertension; Type 2 diabetes mellitus with diabetic nephropathy, not otherwise specified (HCC) from Last 3 Months Family History Medical History Relation Comments Arthritis Father Hypertension Father Heart attack Maternal Grandfather Osteoporosis Mother Skin cancer Mother Stroke Paternal Grandfather Relation Status Comments Brother 1 Alive Brother 2 Alive Father Alive Maternal Grandfather Mother Alive Paternal Grandfather Social History Tobacco Use Types Packs/Day Years Used Date Smoking Tobacco: Former Cigarettes 6 S tarted: 2019 Smokeless Tobacco: Never Alcohol Use Standard Drinks/Week Comments Yes 0 (1 standard drink = 0.6 oz pur e alcohol) Comments Unknown Sex and Gender Information Value Date Recorded Sex Assigned at Not on file Legal Sex Female 5:25 PM EDT Gender Identity Not on file Sexual Orientation Not on file Last Filed Vital Signs Vital Sign Reading Time Taken Comments Blood Pressure 125/87 04/28/2025 2:53 PM CDT Pulse 100 04/28/2025 2:53 PM CDT Temperature 36.8 C (98.2 F) 04/28/2025 2:53 PM CDT Respiratory Rate - - Oxygen Saturation 98% 04/28/2025 2:53 PM CDT Inhaled Oxygen Concentration - - Weight 95.3 kg (210 lb) 04/28/2025 2:53 PM CDT Height - - Body Mass Index - - Plan of Treatment Health Maintenance Due Date Last Done Comments Breast Cancer Screening 1967 Hepatitis B Vaccine (1 of 3 - 19+ 3-dose series) 1986 Pneumococcal Vaccine: 50+ Ye ars (1 of 2 - PCV) 1986 Colorectal Cancer Screening: Annual FOBT 2016 Colorectal Cancer Screening: Colonoscopy 2016 Colorectal Cancer Screening: Sigmoidoscopy 2016 Diabetes: Ophthalmology Exam 11/13/2024 Diabetes: Pedal Pulse Checked 11/13/2024 Diabetes: Sensory Foot Exam 11/13/2024 Diabetes: Visual Foot Exam 11/13/2024 Influenza Vaccine (#1) 2025 , 05/21/2022, 04/27/2021, Additional history exists Diabetes: Hemoglobin A1C 04/24/2025 01/22/2025, 08/17 Insurance [facility] Medicare Care Teams Blast Furnace Helper Relationship Specialty Start Date End Date Yves Koch MD PCP - General Family Medicine 09/25/24
--- OUTSIDE RECORDS SUMMARY | 2025-07-06 08:15 | XMS_ITS | Encounter Summary ---
Author Organization [facility] Address [address] [place] [address] Care Team Providers Care Environmental Laboratory Technician Name Role Phone Danilo Lopez MD Primary Care Provider [phone] Chasidy Blanco RN Unavailable [phone] Georgie OlivaW Unavailable [phone] Mc Herrera MD Unavailable + [phone] Yves Koch MD Primary Care Provider Loretta Rincon MD PhD Unavailable Florence Rausch MD Unavailable [phone] Neo Botello MD PhD Unavailable [phone] Sabas Perez MD Unavailable + [phone] Johan Jang MD Unavailable [phone] Yves Koch MD Primary Care Provider Johan Jang MD Unavailable [phone] Yves Koch MD Primary Care Provider Manish Perez NP Unavailable Encounter Details Date Type Department Care Team (Late st Contact Info) Description 11/20/2020 Telephone [facility] 2 [facility] Sophie Camacho Ayaan. [address] [place] [address] Benjamin Mesa MD [address] [place] [address] Social History Tobacco Use Types Packs/Day Years [...] on file Legal Sex Female 6:40 PM VOCATIONAL REHABILITATION TECHNICIAN Gender Identity Female 05/19/2022 11:43 PM CDT Sexual Orientation Not on file documented as of this encounter Plan of Treatment Not on file documented as of this encounter Visit Diagnoses Not on filedocumented in this encounter Additional Health Concerns Infection Onset Date Last Indicated Resolved Time MRSA 10/16/2020 10/16/2020 09/14/2021 4:00 AM VOCATIONAL REHABILITATION TECHNICIAN COVID: Suspected 08/30/2022 09/01/2022 08/31/2022 3:05 AM VOCATIONAL REHABILITATION TECHNICIAN Exposure, COVID-19 Comment:Added automatically based on COVID19 lab answers indicating exposure risk 06/09/2023 06/09/2023 06/19/2023 3:[address] COVID: Suspected 06/23/2023 06/23/2023 06/23/2023 11:25 PM VOCATIONAL REHABILITATION TECHNICIAN C. difficile 06/23/2023 06/23/2023 07/06/2023 4:40 PM VOCATIONAL REHABILITATION TECHNICIAN COVID: Suspected 06/26/2023 06/26/2023 06/26/2023 4:30 PM VOCATIONAL REHABILITATION TECHNICIAN Diarrhea 08/25/2023 08/25/2023 08/25/2023 1:12 PM VOCATIONAL REHABILITATION TECHNICIAN C. difficile Comment:02/05/25 - Patient meets established clinical criteria for discontinuation of C. difficile isolation precautions. 08/25/2023 08/25/2023 02/05/2025 10:54 AM CDT COVID: Suspected 08/27/2023 08/27/2023 08/27/2023 6:52 PM VOCATIONAL REHABILITATION TECHNICIAN COVID: Suspected 05/03/2024 05/03/2024 05/03/2024 6:05 PM CDT C. difficile suspected 01/26/2025 01/26/202501/26 8:50 PM CDT Norovirus suspected 01/26/2025 01/26/2025 01/28/20 12:39 AM CDT documented as of this encounter Care Teams Environmental Laboratory Technician Relationship Specialty Start Date End Date Danilo Lopez MD PCP - General 10/14/16 11/05/23 Yves Koch MD [address] [facility]) [facility] [address] [place] [address] PCP - General Family Medicine 11/06/23 02/19/24 Johan Jang MD [address] [place] [address] PCP - Behavioral Health Psychiatry 02/20/24 4 Yves Koch MD [address] [facility] [place] Mailstop [phone] [place] [address] PCP - General Family Medicine 02/20/24 12/24/24 Yves Koch MD [facility] [address] [address] PCP - General Family Medicine 12/25/24 Chasidy Blanco, RN [address] [facility] [address] [place] [address] SHOP Outpatient Digital Learning Platforms Manager 05/30/22 06/26/22 Georgie Oliva LCSW [address] [facility] ([facility] Mailstop [phone] [place] [address] SHOP Outpatient Digital Learning Platforms Manager 06/15/23 06/15/23 Mc Herrera MD [address] [facility] ([facility] Mailstop [phone] [place] [address] Consulting Physician Infectious Diseases 07/03/23 Loretta Rincon MD PhD [address] [facility] [address] [place] [address] Dermatology 11/06/23 Florence Rausch MD [address] [facility] [address] [place] [address] Consulting Physician Internal Medicine 11/06/23 Neo Botello MD PhD [address] [facility] [address] [place] [address] Consulting Physician Neurosurgery 11/06/23 Sabas Perez MD [address] [place] [address] DR SOPHIE Cazares [address] [address] Balloon Sander Obstetrics and Gynecology 11/06/23 Johan Jang MD [address] [place] [address] [address] [place] [address] Consulting Physician Psychiatry 02/20/24 Manish Perez, TONYA [address] [place] [address] [address] [place] [address] Nurse Practitioner Orthopedic Surgery 02/11/25 documented as of this encounter
--- OUTSIDE RECORDS SUMMARY | 2025-07-06 08:15 | XMS_ITS | Encounter Summary ---
Author Organization [facility] Address [address] [place] [address] Care Team Providers Care Cold Mill Supervisor Name Role Phone Mc Herrera MD Unavailable + [phone] Loretta Rincon MD PhD Unavailable Florence Rausch MD Unavailable [phone] Neo Botello MD PhD Unavailable [phone] Sabas Perez MD Unavailable [phone] Yves Koch MD Primary Care Provider Johan Jang MD Unavailable [phone] Yves Koch MD Primary Care Provider Manish Perez NP Unavailable [phone] Reason for Visit * Reason Onset Date Comments Scheduling Appointments 05/15/202405/15 LV M for patient to call back to schedule Imaging Lumbar/Sacral Selective Nerve Root INJ (TFE) Right ([id number]) Encounter Details Date Type Department Care Team (Late st Contact Info) Description 05/15/2024 Telephone [facility] at [facility] [address], [address] [place] [address] Reinier Feldman MD [address] [place] [address] Scheduling Appointments (05/15 LVM for patient to call back to schedule Imaging Lumbar/Sacral Selective Nerve Root INJ (TFE) Right ([id number])) Social History Tobacco Use Types Packs/Day Years [...] materials from doctor or pharmacy Never 08/16/2023 [facility] Utilities Answer Date Recorded In the past 12 months has e electric, gas, oil, or water [employer]contact threatened to shut off services in your [...] often do you attend chur ch or druze services? Never 08/28/2023 Do you belong to any clubs o r organizations such as hindu groups, unions, fraternal or athletic groups, or [...] place to sleep or slept in a detention (including now)? No 08/28/2023 Personal Safety Answer [...] on file Legal Sex Female 6:40 PM UNIFORM FORCE CAPTAIN Gender Identity Female 05/19/2022 11:43 PM CDT Sexual Orientation Not on file documented as of this encounter Plan of Treatment Not on file documented as of this encounter Goals Goal [...] on stairs Contact your local community or [facility] for information on exercise, fall prevention [...] documented as of this encounter Care Teams Cold Mill Supervisor Relationship Specialty Start Date End Date Yves Koch MD [address] [place] [address] DR [address] [address] PCP - General Family Medicine 02/20/24 12/24/24 Yves Koch MD [address] [facility] [address] [place] [address] PCP - General Family Medicine 12/25/24 Mc Herrera MD Consulting Physician Infectious Diseases 07/03/23 Loretta Rincon MD PhD [address] [facility] [address] [place] [address] Dermatology 11/06/23 Florence Rausch MD [address] [facility] [address] [place] [address] Consulting Physician Internal Medicine 11/06/23 Neo Botello MD PhD [facility] [address] [place] [address] Consulting Physician Neurosurgery 11/06/23 Sabas Perez MD [address] [place] [address] DR T[address] Cazares [facility] [address] [place] [address] Slitter Creaser Slotter Operator Obstetrics and Gynecology 11/06/23 Johan Jang MD [address] [place] [address] [address] [place] [address] Consulting Physician Psychiatry 02/20/24 Manish Perez NP [address] [place] [address] [address] [place] [address] Nurse Practitioner Orthopedic Surgery 02/11/25 documented as of this encounter
--- OUTSIDE RECORDS SUMMARY | 2025-07-06 08:15 | XMS_ITS | Clinical Summary ---
Author Organization [facility] Address [address] [facility] [place] [address] Care Team Providers Care Semaphore Operator Name Role Phone Danilo Lopez MD Primary Care Provider [phone] Source Comments [facility],non-owned Affiliates and Associated Physician Practices is amultiple site organization consisting of ambulatory clinics and hospital sitesin [place], [place], [place] and [place]. This disclosure is being madepursuant to the Care Everywhere program and may not contain all information available regarding this patient. Last updated 18.[facility] Allergies No known active allergies Medications * [...] on file Legal Sex Female 8:41 AM POLE INSPECTOR Gender Identity Not on file Sexual Orientation [...] DEPRESSION SCREENING 07/17/2024 COVID-19 VACCINE (1 - 2024-2 6 season) 2025 INFLUENZA VACCINE (#1) 2025 HIB [...] MEDICAID - OUT OF STATE Care Teams Semaphore Operator Relationship Specialty Start Date End Date Danilo Lopez MD PCP - General 12/02/20
--- OUTSIDE RECORDS SUMMARY | 2025-07-06 08:16 | XMS_ITS | Encounter Summary ---
Author Organization [facility] Address [address] [place] [address] Care Team Providers Care Tool Maker Name Role Phone Danilo Lopez MD Primary Care Provider [phone] Chasidy Blanco RN Unavailable [phone] Georgie OlivaW Unavailable [phone] Mc Herrera MD Unavailable + [phone] Yves Koch MD Primary Care Provider Loretta Rincon MD PhD Unavailable Florence Rasuch MD Unavailable [phone] Neo Botello MD PhD Unavailable [phone] Sabas Perez MD Unavailable [phone] Johan Jang MD Unavailable [phone] Yves Koch MD Primary Care Provider Johan Jang MD Unavailable [phone] Yves Koch MD Primary Care Provider Manish Perez NP Unavailable Encounter Details Date Type Department Care Team (Late st Contact Info) Description 11/11/2020 Telephone [facility] 2 [facility] Sophie Camacho [address]. 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 difficile 06/23/2023 06/23/2023 07/06/2023 4:40 PM HAND DRILLER COVID: Suspected 06/26/2023 06/26/2023 06/26/2023 4:30 PM HAND DRILLER Diarrhea 08/25/2023 08/25/2023 08/25/2023 1:12 PM HAND DRILLER C. difficile Comment:02/05/25 - Patient meets established clinical criteria for discontinuation of C. difficile isolation precautions. 08/25/2023 08/25/2023 02/05/2025 10:54 AM CDT COVID: Suspected 08/27/2023 08/27/2023 08/27/2023 6:52 PM HAND DRILLER COVID: Suspected 05/03/2024 05/03/2024 05/03/2024 6:05 PM CDT C. difficile suspected 01/26/2025 01/26/202501/26 8:50 PM CDT Norovirus suspected 01/26/2025 01/26/2025 01/28/20 12:39 AM CDT documented as of this encounter Care Teams Tool Maker Relationship Specialty Start Date End Date Danilo Lopez MD PCP - General 10/14/16 11/05/23 Yves Koch MD [address] [facility] [phone] [place] [address] PCP - General Family Medicine 11/06/23 02/19/24 Johan Jang MD [address] [place] [address] PCP - Behavioral Health Psychiatry 02/20/24 4 Yves Koch MD [address] [facility] ([facility]) Mailstop [phone] [place] [address] PCP - General Family Medicine 02/20/24 12/24/24 Yves Koch MD [facility] [address] [address] PCP - General Family Medicine 12/25/24 Chasidy Blanco, RN [address] [facility] [address] [place] [address] SHOP Outpatient Drainlayer 05/30/22 06/26/22 Georgie Oliva LCSW [address] [facility] ([facility]) Mailstop [phone] [place] [address] SHOP Outpatient Drainlayer 06/15/23 06/15/23 Mc Herrera MD [address] [facility] ([facility]) Mailstop [phone] [place] [address] Consulting Physician Infectious Diseases 07/03/23 Loretta Rincon MD PhD [address] [facility] [address] [place] [address] Dermatology 11/06/23 Florence Rausch MD [address] [facility] [address] [place] [address] Consulting Physician Internal Medicine 11/06/23 Neo Botello MD PhD [address] [facility] [address] [place] [address] Consulting Physician Neurosurgery 11/06/23 Sabas Perez MD [address] [place] [address] DR SOPHIE Cazares [address] [address] Marble Rubber Obstetrics and Gynecology 11/06/23 Johan Jang MD [address] [place] [address] [address] [place] [address] Consulting Physician Psychiatry 02/20/24 Manish Perez, TONYA [address] [place] [address] [address] [place] [address] Nurse Practitioner Orthopedic Surgery 02/11/25 documented as of this encounter
--- OUTSIDE RECORDS SUMMARY | 2025-07-06 08:16 | XMS_ITS | Clinical Summary ---
Author Organization [facility] Address [address] [place] [address] Phone Care Team Providers Care Care Connector Name Role Phone Danilo Lopez MD Primary Care Provider [phone] Allergies No known active allergies Medications ValACYclovir [...] Encounters Date Type Department Care Team Description 04/17/2025 Documentation Only [facility] at [facility] [address] [place] [address] Minnie Lorenzo M, PT from Last 3 Months Family History Relation Name Status Comments Father Alive Mother Alive Social History Tobacco Use Types Packs/Day Years Used Date Smoking Tobacco: Former Cigarettes 1 25 1 2019 Smokeless Tobacco: Never Tobacco Cessation:Ready to [...] PM CDT Pulse 77 09/06/2021 4:15 PM SAND TECHNOLOGIST Temperature 36.4 C (97.5 F) 09/06/2021 3:41 PM SAND TECHNOLOGIST Respiratory Rate 17 09/06/2021 3:41 PM SAND TECHNOLOGIST Oxygen Saturation 95% 09/06/2021 4:15 PM SAND TECHNOLOGIST Inhaled Oxygen Concentration - - Weight 93.4 [...] years) (1 of 1 - PCV) 2017 Colorectal Cancer Screening 06/27/2024 Immunochemical Fecal Occult Blood 06/27/2024 06/27/2023 Welcome to Medicare (IPPE) G0402 07/17/2024 Influenza Immunization (#1) 03/17/202504/16, 05/21/2022, 04/27/2021, Additional history exists SARS-COV-2 Immunization (2024- season) 2025 05/03/2023, 12/07/2020, 11/04/2020 Mammogram 03/31/2026 03/31/2025, 06/0 12/2022, 03/11/2020, Additional history exists Respiratory Syncytial Virus (RSV) Immunization (Adult) (1 - 1-dose 75+ series) 2042 DTaP/Tdap/Td Immunization Discontinued 2020, 05/22/2014, 11/14/2006 TdaP Immunization Completed 01/17/2021, 05/22/2014 Zoster Immunization Completed 10/15/2021, Lung Cancer Screening Discontinued 06/27/2023 , 06/24/2023, 06/07/2023, Additional history exists Human Papillomavirus (HPV) Immunization (No Doses Required) Completed Meningococcal Immunization (ACWY) Aged Out No longer eligible based on patient's age to complete this topic Rotavirus Immunization Aged Out No lo nger eligible based on patient's age to complete this topic Medical Devices Implanted Type Area High School Music Instructor Device Identifier Shelf Expiration Date Model / Serial / Lot Implant Sling Miduretheral Obtryx Ii Sherman - [id number] Implanted:Qty: 1 on 05/30/2017 by Robin Garcia MD at [facility] IMPLANT N/A: Peritoneum [employer] / CARDIAC RH 06/28/2019 [id number] / [id number] / [id number] Description:VAGINAL/PERINEUM Insurance MEDICA[place] MEDICARE C [employer] Advance Directives Documents on File Type Date Recorded Patient Client Care Representative Expl anation [place] Surrogate Physician Appointment 10/13/2021 1:06 PM MRI L-Spine Results 10/11/21 [facility] Care Teams Care Connector Relationship Specialty Start Date End Date Danilo Lopez MD PCP - General Internal Medicine 03/16/17
--- OUTSIDE RECORDS SUMMARY | 2025-07-06 08:16 | XMS_ITS | Encounter Summary ---
Author Organization [facility] Address [address] [place] [address] Care Team Providers Care Central Office Mechanic Name Role Phone Mc Herrera MD Unavailable [phone] Loretta Rincon MD PhD Unavailable Florence Rausch MD Unavailable [phone] Neo Botello MD PhD Unavailable [phone] Sabas Perez MD Unavailable Johan Jang MD Unavailable [phone] Yves Koch MD Primary Care Provider Manish Perez NP Unavailable [phone] Reason for Visit * Auth/Cert (Routine) Specialty Diagnoses / Procedures Referred By Contac t Referred To Contact Diagnoses Family history of colon cancer History of colonic polyps Colitis Encounter for screening colonoscopy Family history of colon cancer [Z80.0] History of colonic polyps [Z86.0100] Colitis [K52.9] Encounter for screening colonoscopy [Z12.11] Procedures [place] COLONOSCOPY FLX DX W/COLLJ SPEC WHEN PFRMD COLONOSCOPY Referral ID Status Reason Start Date Expiration Date Visits Re quested Visits Authorized [id number] 1 1 Encounter Details Date Type Department Care Team (Late st Contact Info) Description 06/17/2025 Hospital Encounter [facility] [address] [place] [address] Toya Toro MD [address] [place] [address] [place] [address] Social History Tobacco Use Types Packs/Day Years Used Date Smoking Tobacco: Former Cigarettes 0.5 36.2 1 984 - 10/13/2019 Smokeless Tobacco: Never Comments:socially Alcohol Use Standard Drinks/Week Comments Not [...] materials from doctor or pharmacy Never 08/16/2023 [facility] Utilities Answer Date Recorded In the past 12 months has e electric, gas, oil, or water company threatened to shut off services in your [...] often do you attend chur ch or tenriism services? Never 08/28/2023 Do you belong to any clubs o r organizations such as amish groups, unions, fraternal or athletic groups, or [...] points, staff should administer the PHQ-9) 0 06/20/2025 Hunger Vital Sign Answer Date Recorded Within [...] place to sleep or slept in a long term (including now)? 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 documented as of this encounter Visit Diagnoses Diagnosis Colitis Other and unspecified noninfectious gastroenteritis and colitis Family history of colon cancer Family history of malignant neoplasm of gastrointestinal tract History of colonic polyps Personal history of colonic polyps Encounter for screening colonoscopy documented in this encounter Admitting Diagnoses Diagnosis Colitis Other and unspecified noninfectious gastroenteritis and colitis Family history of colon cancer Family history of malignant neoplasm of gastrointestinal tract History of colonic polyps Personal history of colonic polyps Encounter for screening colonoscopy documented in this encounter Care Teams Central Office Mechanic Relationship Specialty Start Date End Date Yves Koch MD [address] [address] PCP - General Family Medicine 12/25/24 Mc Herrera MD Consulting Physician Infectious Diseases 07/03/23 Loretta Rincon MD PhD [address] [facility] [address] [place] [address] Dermatology 11/06/23 Florence Rausch MD [address] [facility] [address] [place] [address] Consulting Physician Internal Medicine 11/06/23 Neo Botello MD PhD [facility] [address] [place] [address] Consulting Physician Neurosurgery 11/06/23 Sabas Perez MD [address] [place] [address] DR TARA Cazares [address] [place] [address] Executive Search Consultant Obstetrics and Gynecology 11/06/23 Johan Jang MD [address] [place] [address] [address] [place] [address] Consulting Physician Psychiatry 02/20/24 Manish Perez NP [address] [place] [address] [address] [place] [address] Nurse Practitioner Orthopedic Surgery 02/11/25 documented as of this encounter
--- OUTSIDE RECORDS SUMMARY | 2025-07-06 08:16 | XMS_ITS | Encounter Summary ---
Author Organization [facility] Address [address] [place] [address] Phone Care Team Providers Care Insurance Advisor Name Role Phone Danilo Lopez MD Primary Care Provider [phone] Reason for Referral * PT/OT/ST (Routine) - Authorized Specialty Diagnoses / Procedures Referred By Contac t Referred To Contact Physical Therapy Diagnoses S/P right rotator cuff repair Boris Sweeney MD [address], [address] [place] [address] Phone: tel: fax: [facility] [address] [facility], [address] [address] Phone: tel: fax: Referral ID Status Reason Start Date Expiration Date V isits Requested Visits Authorized [id number] Authorized 02/14/2025 100 18 Scheduling Instructions Encounter Details Date Type Department Care Team (Late st Contact Info) Description 02/14/2025 Transcribe Orders [facility] [address] [place] [address] Boris Sweeney MD [address], [address] [place] [address] S/P right rotator cuff repair [...] Primary documented in this encounter Care Teams Insurance Advisor Relationship Specialty Start Date End Date Dnailo Lopez MD PCP - General Internal Medicine 03/16/17 documented as of this encounter
--- OUTSIDE RECORDS SUMMARY | 2025-07-06 08:16 | XMS_ITS | Clinical Summary ---
Author Organization [facility] Address [address] [place] [address] Care Team Providers Care Ad Terminal Makeup Operator Name Role Phone Mc Herrera MD Unavailable + [phone] Loretta Rincon MD PhD Unavailable Florence Rausch MD Unavailable [phone] Neo Botello MD PhD Unavailable [phone] Sabas Perez MD Unavailable Johan Jang MD Unavailable [phone] Yves Koch MD Primary Care Provider Manish Perez NP Unavailable [phone] Allergies Active Allergy Reactions Criticality Noted Date Comments Oxycodone Nausea & Vomiting Low 02/11/[address] (NexIUM) 20 mg capsuleIndication s:Treatment of Non-Bleeding Gastric Disorder Take 1 capsule (20 mg total) by mouth daily before breakfast Active fluticasone propionate (FLONASE) 50 mcg/actuation nasal sprayIndications: Viral illness SPRAY 2 SPRAYS INTO EACH NOSTRIL EVERY DAY 3 each 1 10/08/19 Active PARoxetine (PAXIL) 30 mg tabletIndications :Generalized anxiety disorder,Recurren t major depressive disorder, in partial remission Take 1 tablet (30 mg total) by mouth every morning 100 tablet 1 04/19/20 25 2025 Active busPIRone (BUSPAR) 10 mg tablet TAKE 1 TABLET BY MOUTH TWICE A DAY 180 tablet 1 04/24/20 Active alendronate (FOSAMAX) 70 mg tabletIndications :Osteopenia of multiple sites Take 1 tablet (70 mg total) by mouth every 7 days Take in the morning with a full glass of water, on an empty stomach, and do not take anything else by mouth or lie down for the next 30 min. 4 tablet 11 04/30/202025 Active pregabalin (LYRICA) 150 mg capsuleIndication s:Spinal stenosis of lumbar region with neurogenic claudication Take 1 capsule (150 mg total) by mouth 2 (two) times a day 120 capsule 1 06/02/20 25 2025 Active empagliflozin (JARDIANCE) 25 mg tabletIndications :type 2 diabetes mellitus Take 1 tablet (25 mg total) by mouth daily 90 tablet 1 06/02/20 Active atorvastatin (LIPITOR) 10 mg tabletIndications :Mixed hyperlipidemia Take 1 tablet (10 mg total) by mouth daily 100 tablet 06/10/20 Active cyclobenzaprine (FLEXERIL) 10 mg tabletIndications :Muscle Spasm Take 1 tablet (10 mg total) by mouth 3 (three) times a day as needed for muscle spasms 90 tablet 1 06/20/20 Active valACYclovir (VALTREX) 1 gram tabletIndications :Other (complete free text reason below),Fever Blister TAKE 1 TABLET BY MOUTH EVERY DAY 30 tablet 2 06/26/20 25 Active atorvastatin (LIPITOR) 10 mg tabletIndications :Mixed hyperlipidemia TAKE 1 TABLET BY MOUTH EVERY DAY 90 tablet 3 02/06/20 24 2024 Discontinued(R eorder) valACYclovir (VALTREX) 1 gram tabletIndications :Other (complete free text reason below),Fever Blister TAKE 1 TABLET BY MOUTH EVERY DAY 30 tablet 2 03/26/20 25 2024 Discontinued amoxicillin 500 mg tablet Take 1 tablet/capsu le (500 mg total) by mouth 04/01/202024 Discontinued(T herapy completed) cyclobenzaprine (FLEXERIL) 10 mg tabletIndications :Muscle Spasm Take 1 tablet (10 mg total) by mouth 3 (three) times a day as needed for muscle spasms 45 tablet 1 04/08/20 25 2024 Discontinued(R eorder) methylPREDNISolon e (Medrol, Singh,) 4 mg Dosepack Take as directed on package 1 packet 04/09/202024 Discontinued(T herapy completed) HYDROcodone-aceta minophen (NORCO) 5-325 mg per tabletIndications :Pain Take 1 tablet by mouth every 6 (six) hours as needed for pain 28 tablet 04/17/202024 Discontinued(P atient Reported) Active Problems Problem Noted Date Diagnosed Date Family history of colon cancer 01/30/2025 Assessment & Plan (06/20/2025 12:14 PM ADJUNCT INSTRUCTOR): Orders: Ambulatory referral to Gastroenterology; Future History of colonic polyps 01/30/2025 Encounter for screening colonoscopy 01/30/2025 Assessment & Plan (06/20/2025 12:14 PM ADJUNCT INSTRUCTOR): Orders: Ambulatory referral to Gastroenterology; Future Colitis 01/29/2025 Assessment & Plan (01/29/2025 5:25 [...] (11/06/2024): Established with Nephrology Assessment & Plan (06/20/2025 12:14 PM ADJUNCT INSTRUCTOR): - chronic condition, well controlled - Established with Nephrology - Dr. Healy - continue with Jardiance to 25 mg daily as she has known T2DM - She was told the Lyrica medication not good for her renal function by nephrology office which is currently being tapered down per request, see plan under spinal stenosis of lumbar region Lab Results Component Value Date CREATININE 0.95 03/31/2025 CREATININE 1.04 01/26/2025 CREATININE 0.88 01/22/2025 CREATININE 1.17 (H) 09/25/2024 CREATININE 1.16 (H) 09/25/2024 Assessment & Plan (01/29/2025 5:25 PM CDT): [...] 11/15/2023 Assessment & Plan (08/27/2024 3:17 PM ADJUNCT INSTRUCTOR): - chronic condition, well controlled - noted [...] 11/06/2023 Assessment & Plan (08/27/2024 5:10 PM ADJUNCT INSTRUCTOR): - chronic condition, controlled with persistent symptoms - hx of depression, anxiety, panic attacks, PTSD - currently on Paxil 40 mg daily - on minipress 1 mg nightly for nightmares - former patient of Dr. Rendon (Psychiatry), seeing psychiatry at [facility] - in past has failed Sertraline due [...] comorbidity and body mass index (BMI) of 31.0 to 31.9 in adult 08/07/2023 Assessment & Plan (06/20/2025 12:14 PM ADJUNCT INSTRUCTOR): Wt Readings from Last 3 Encounters: 06/20/25 91.2 kg (201 lb 1.6 oz) 04/08/25 98.9 kg (218 lb) 04/02/25 99.2 kg (218 lb 9.6 oz) Body mass index is 31.5 kg/m . - chronic condition, not at goal --> improved, weight loss noted - goal BMI <30 - BMI Follow-up [...] co-morbidities - hyperlipidemia, pre-diabetes Assessment & Plan (08/27/2024 3:10 PM ADJUNCT INSTRUCTOR): Wt Readings from Last 3 Encounters: 08/27/24 [...] 06/24/2023 Assessment & Plan (09/09/2023 9:17 AM ADJUNCT INSTRUCTOR): Continue cholestyramine and complete course of vancomycin. Avoid any antibiotics going forward. Probiotics recommended. Patient asked to scheduled evaluation for any return diarrhea. Assessment & Plan (09/07/2023 1:57 PM ADJUNCT INSTRUCTOR): Improved on Dificid and complete her infusion tomorrow. Follow-up with ID as they direct Status post lumbar surgery 06/24/2023 Ground glass opacity present on imaging of lung 06/09/2023 Assessment & Plan (06/09/2023 11:47 AM ADJUNCT INSTRUCTOR): Would recommend evaluation by pulmonology given bilateral [...] (11/25/2022 2:25 PM CDT): Managed by bone [facility] Complex tear of medial meniscus of left knee Overview (09/01/2022): Added automatically from request for surgery [id number] Assessment & Plan (09/19/2022 3:29 PM ADJUNCT INSTRUCTOR): Patient has limited perioperative risk factors and [...] extremity Assessment & Plan (09/19/2022 3:28 PM ADJUNCT INSTRUCTOR): Would recommend she postpone her surgery until she has completed 3 full months of anticoagulation. She is currently asymptomatic in regards to her previous DVT. Patient aware of signs and symptoms of recurrent DVT which would prompt repeat visit after surgery. Assessment & Plan (08/15/2022 6:37 AM ADJUNCT INSTRUCTOR): Continue Eliquis for minimum 3 months from her DVT. Assessment & Plan (08/05/2022 11:56 AM ADJUNCT INSTRUCTOR): Stable continue Eliquis 5 mg. Constipation 04/25/2022 [...] (03/04/2022): Added automatically from request for surgery [id number] Assessment & Plan (09/09/2023 9:18 AM ADJUNCT INSTRUCTOR): Improved following surgery and should follow up [...] direct. Assessment & Plan (08/15/2022 6:37 AM ADJUNCT INSTRUCTOR): Follow-up With pain management in her surgeon as they direct. Return back to her Lovell and try to decrease intake as able Assessment & Plan (09/27/2021 6:14 PM CDT): Patient with continued lumbar radiculopathy on the left side despite recent microdiskectomy. Follow-up with neurosurgeon for repeat MRI and further intervention. Assessment & Plan (04/27/2021 2:34 PM CDT): Follow-up with her neurosurgeon as they direct. When her current supply of Lovell runs out, increase to 10/325 1 tablet every 6 hours as needed. Warned of potential side effects Spinal stenosis of lumbar re gion with neurogenic claudication 03/24/2021 Overview (08/27/2024): S/p Lumbar spine fusion x2 Assessment & Plan (06/20/2025 12:14 PM ADJUNCT INSTRUCTOR): - chronic condition, worse, has been without her musle relaxer - follows with Neurosurgery - Dr. Botello - s/p surgery as shown/listed below - no longer on Lovell 10-325 QID PRN, cymbalta 30 mg daily or Tizanidine 4 mg TID PRN - restart Flexeril 10 mg TID PRN - has known fibromyalgia and is also on Pregabalin 225 mg BID - past surgical intervention on 05/2022 and also on 05/2023 (second lumbar fusion with big improvement of symptoms) - currently on Lyrica which is being tapered down from high of 300 mg BID , now down to 225 BID 05/20/2022 FUSION SPINAL - WITH INSTRUMENTATION - [...] Spinal Fusion. L2-L3, L3-L4 Lateral Interbody Fusion Orders: cyclobenzaprine (FLEXERIL) 10 mg tablet; Take 1 tablet (10 mg total) by mouth 3 (three) times a day as needed for muscle spasms Assessment & Plan (01/29/2025 11:35 AM CDT): - chronic condition, well controlled - follows with Neurosurgery - Dr. Botello - s/p surgery as shown/listed below - no longer on Lovell 10-325 QID PRN, cymbalta 30 mg daily [...] as shown/listed below - no longer on Lovell 10-325 QID PRN, cymbalta 30 mg daily [...] Fusion Assessment & Plan (08/27/2024 5:09 PM ADJUNCT INSTRUCTOR): - chronic condition, improved - follows with Neurosurgery - Dr. Botello - s/p surgery as shown/listed below - no longer on Lovell 10-325 QID PRN, cymbalta 30 mg daily [...] 30 mg daily - no longer on Lovell 10-325 QID PRN - been on Lovell report since age of 42, s/p total Right Knee replacement - reports has had issues with pain management providers that will take her insurance - discussed that I am not comfortable with managing this dose of Lovell, refer her to pain management in [place] on prior visit - referral placed to [facility] in [place] in the past - she recently had [...] Cymbalta 30 mg daily - currently on Lovell 10-325 QID PRN - been on Lovell report since age of 42, s/p total Right Knee replacement - reports has had issues with pain management providers that will take her insurance - discussed that I am not comfortable with managing this dose of Lovell, will refer her to pain management in [place] - If needed I can manage it temporarily at a lower dose but will keep lowering dose if it is prolonged - referral placed to [facility] in [place] 05/20/2022 FUSION SPINAL - WITH INSTRUMENTATION - [...] deficiency. Pt was advised to remove nail Kiswahili apply OTC Lamisil nail treatments b.i.d. to [...] completed. Assessment & Plan (07/28/2020 5:02 PM ADJUNCT INSTRUCTOR): Patient is aware that Dr. Deshpande recommended [...] evaluation. Assessment & Plan (05/31/2018 10:22 AM ADJUNCT INSTRUCTOR): Considering improvement symptoms with the 10 day [...] with any additional questions. Recommending probiotics or Ukrainian yogurt were also advised to prevent any GI upset associated with abx use JESSICA (stress urinary incontinence, female) 2016 Generalized anxiety disorder 03/02/2017 Assessment & Plan (06/20/2025 12:14 PM ADJUNCT INSTRUCTOR): - chronic condition, controlled with persistent symptoms - hx of depression, anxiety, panic attacks, PTSD - currently on Paxil 30 mg daily (tapered down on prior visit per patient request) - no on minipress 1 mg nightly for nightmares - former patient of Dr. Rendon (Psychiatry), seeing psychiatry at [facility] - in past has failed Sertraline due to ineffectiveness - she was referred to psychiatry by prior PCP but has not heard from them The current medical regimen is effective; continue present plan and medications. Assessment & Plan (01/29/2025 11:37 AM CDT): [...] of Dr. Rendon (Psychiatry), seeing psychiatry at [facility] - in past has failed Sertraline due to ineffectiveness - she was referred to psychiatry by prior PCP but has not heard from them - continue current management with changes made above Assessment & Plan (08/27/2024 5:10 PM ADJUNCT INSTRUCTOR): - chronic condition, controlled with persistent symptoms - hx of depression, anxiety, panic attacks, PTSD - currently on Paxil 40 mg daily - on minipress 1 mg nightly for nightmares - former patient of Dr. Rendon (Psychiatry), seeing psychiatry at [facility] - in past has failed Sertraline due [...] direct. Assessment & Plan (07/28/2020 5:00 PM ADJUNCT INSTRUCTOR): Follow-up with her psychiatrist as they direct. Assessment & Plan (07/12/2020 7:08 PM ADJUNCT INSTRUCTOR): Continue duloxetine follow-up with her psychiatrist as [...] support service for family's along with contacting [facility] as she has an appointment in May with psychiatrist, which is a bit off. Will see if we can touch base with [facility] further hope of controlling her anxiety and reaching out to a counselor. Assessment & Plan (02/14/2020 10:26 AM CDT): Uncontrolled, please refer to care plan detailed under depression Assessment & Plan (07/26/2019 4:18 PM ADJUNCT INSTRUCTOR): Stable without medication. Assessment & Plan (10/10/2018 10:26 PM CDT): Stable without medication. Insomnia 03/02/2017 Overview (04/10/2017): Failed Ambien due to constipation. Fibromyalgia 01/19/2017 Assessment & Plan (06/20/2025 12:14 PM ADJUNCT INSTRUCTOR): - chronic, well controlled - currently on Lyrica 225 mg BID (tapered down on prior visits per patient request) - no longer on Cymbalta - has known anxiety, depression, and PTSD Assessment & Plan (08/27/2024 5:06 PM ADJUNCT INSTRUCTOR): - chronic, well controlled - currently on [...] her Lyrica tizanidine tramadol Celebrex. Follow-up with knitting machine operator automatic as they direct. Assessment & Plan (07/28/2020 5:01 PM ADJUNCT INSTRUCTOR): Her psychiatrist discontinued her duloxetine. Change meloxicam to Celebrex. Warned of side effects and take with food. Continue Lyrica and call back for increased dose if needed. Continue tizanidine and tramadol. Follow-up with knitting machine operator automatic as they direct. Assessment & Plan (07/12/2020 7:09 PM ADJUNCT INSTRUCTOR): Continue duloxetine 60 mg daily. Add Lyrica [...] (02/28/2020 8:58 AM CDT): Recommended consultation to knitting machine operator automatic given ongoing concerns with generalized pain. Pt was recommended to Cnt. Daily activity, nonpharmacologic recommendations increasing Cymbalta to 30 mg in further hope of controlling fibromyalgia and move related issues. Lovell refilled for only sparing use as well. RTC 1 month Assessment & Plan (02/14/2020 10:27 AM CDT): Trial of Cymbalta to assist with mood disorder, fibromyalgia related pain. Further evaluation in 2 weeks. Follow-up with knitting machine operator automatic as scheduled. Assessment & Plan (07/26/2019 4:18 PM ADJUNCT INSTRUCTOR): Well controlled with Lovell p.r.n. and cyclobenzaprine Assessment & Plan (10/10/2018 10:26 PM CDT): Well controlled on current medication regimen. Assessment & Plan (04/10/2017 7:58 PM CDT): Continue Flexeril, gabapentin, hydrocodone, venlafaxine. Major depressive disorder 01/19/2017 Assessment & Plan (06/20/2025 12:14 PM ADJUNCT INSTRUCTOR): - chronic condition, controlled with persistent symptoms - hx of depression, anxiety, panic attacks, PTSD - currently on Paxil 30 mg daily (tapered down on prior visit per patient request) - no on minipress 1 mg nightly for nightmares - former patient of Dr. Rendon (Psychiatry), seeing psychiatry at [facility] - in past has failed Sertraline due to ineffectiveness - she was referred to psychiatry by prior PCP but has not heard from them The current medical regimen is effective; continue present plan and medications. Assessment & Plan (01/29/2025 11:37 AM CDT): [...] of Dr. Rendon (Psychiatry), seeing psychiatry at [facility] - in past has failed Sertraline due to ineffectiveness - she was referred to psychiatry by prior PCP but has not heard from them - continue current management with changes made above Assessment & Plan (08/27/2024 5:10 PM ADJUNCT INSTRUCTOR): - chronic condition, controlled with persistent symptoms - hx of depression, anxiety, panic attacks, PTSD - currently on Paxil 40 mg daily - on minipress 1 mg nightly for nightmares - former patient of Dr. Rendon (Psychiatry), seeing psychiatry at [facility] - in past has failed Sertraline due [...] management Assessment & Plan (09/07/2023 1:56 PM ADJUNCT INSTRUCTOR): Stable on current medication regimen and new psychiatry referral placed. Assessment & Plan (10/27/2020 2:16 PM CDT): Follow-up with her psychiatrist as they direct. Discuss prazosin with them regarding nightmares. Assessment & Plan (07/28/2020 4:59 PM ADJUNCT INSTRUCTOR): Continue current medication regimen and follow up with her psychiatrist as they recommend. Recommend counseling. Increase exercise. Assessment & Plan (07/12/2020 7:08 PM ADJUNCT INSTRUCTOR): Continue duloxetine 60 mg daily. Continue counseling [...] Consultation placed to psychiatrist, Chasidy Uribe at [facility], to follow-up further. I did offer for Pt to reach out to social security assessor given caring for her grandson is difficult predicament. Assessment & Plan (02/14/2020 10:26 AM CDT): Clinically depressed, anxious but with adequate support at home. Given fibromyalgia, mood disorder will start her on Cymbalta in effort of treating both at 20 mg daily, re-evaluating in 2 weeks. Consultation placed to psychiatrist, Chasidy Uribe at [facility], to follow-up further. I did offer for Pt to reach out to social security assessor given caring for her grandson is difficult [...] p.r.n. Mixed hyperlipidemia 06/17/2016 Assessment & Plan (06/20/2025 12:14 PM ADJUNCT INSTRUCTOR): - chronic condition - status: improved but is not adequately controlled. - current management/medications: Atorvastatin 10 mg daily - start Bellerose-3 fish oil supplements for better control of [...] 01/26/2025 BILITOT 0.2 01/26/2025 Assessment & Plan (01/29/2025 5:28 PM CDT): - chronic condition - status: improved but is not adequately controlled. - current management/medications: Atorvastatin 10 mg daily - start Bellerose-3 fish oil supplements for better control of [...] 01/26/2025 Assessment & Plan (08/27/2024 3:13 PM ADJUNCT INSTRUCTOR): - chronic condition - status: is adequately [...] 08/25/2023 Assessment & Plan (09/10/2023 1:27 PM ADJUNCT INSTRUCTOR): Continue atorvastatin check lipids and LFTs down the road Assessment & Plan (09/09/2023 9:18 AM ADJUNCT INSTRUCTOR): Continue atorvastatin for now check lipids and LFTs down the road Assessment & Plan (09/07/2023 1:56 PM ADJUNCT INSTRUCTOR): Continue Atorvastatin and check lipids and LFTs down the road Assessment & Plan (05/26/2023 9:03 AM ADJUNCT INSTRUCTOR): Diet exercise recommended and continue atorvastatin check lipids and LFTs before next visit Assessment & Plan (12/11/2022 8:22 AM CDT): Well controlled on current therapy and will check a lipid panel and LFTs in 6 months. Assessment & Plan (09/19/2022 3:27 PM ADJUNCT INSTRUCTOR): Continue atorvastatin check lipids and LFTs before [...] exercise. Assessment & Plan (07/28/2020 5:00 PM ADJUNCT INSTRUCTOR): I suspect possible laboratory error and will simply repeat her cholesterol panel before next visit. Diet exercise discussed. Will need statin therapy if LDL not significantly improved. 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 - hx of diarrhea, off metformin - continue with Jardiance 25 mg daily, has CKD - due for Urine ACR - order placed - due for foot exam - reminder provided to get dilated eye exam --> last done over a year ago, [facility] in [place] - recheck labs, order placed Lab Results Component Value Date HGBA1C 6.2 (H) 01/22/2025 HGBA1C 6.0 (H) 09/04/2024 HGBA1C 5.8 (H) 02/21/2024 Lab Results Component Value Date LDLCALC 108 01/26/2025 CREATININE 0.95 03/31/2025 Assessment & Plan (01/29/2025 11:26 AM CDT): - chronic condition, well controlled but persistent - recheck labs, order placed - 11/07 - 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 - currently [...] --> last done over a year ago, [facility] in [place] Lab Results Component Value Date HGBA1C 6.2 (H) 01/22/2025 HGBA1C 6.0 (H) 09/04/2024 HGBA1C 5.8 (H) 02/21/2024 Lab Results Component Value Date LDLCALC See Comment 09/04/2024 CREATININE 1.04 01/26/2025 Assessment & Plan (11/06/2024 5:01 PM CDT): - chronic condition, stable status - recheck labs, order placed - 11/07 - 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 Assessment & Plan (09/07/2023 1:56 PM ADJUNCT INSTRUCTOR): Check fasting blood sugar and A1c down [...] yearly. Assessment & Plan (07/28/2020 4:59 PM ADJUNCT INSTRUCTOR): Patient should reduce sugar and carbs, increase exercise, maintain proper body weight, and will check an A1c once or twice yearly. Assessment & Plan (07/26/2019 4:17 PM ADJUNCT INSTRUCTOR): Patient should reduce sugar and carbs, increase [...] of tobacco use 11/30/2013 Overview (08/27/2024): Quit 2019 Assessment & Plan (11/06/2023 3:45 PM CDT): [...] discussed. Assessment & Plan (07/28/2020 4:59 PM ADJUNCT INSTRUCTOR): Nicotine replacement therapy and smoking cessation counseling [...] discussed. Assessment & Plan (05/21/2018 6:46 AM ADJUNCT INSTRUCTOR): Patient states she quit smoking three months [...] 11/30/2013 Assessment & Plan (08/27/2024 3:09 PM ADJUNCT INSTRUCTOR): - chronic condition, stable status - currently on Nexium 20 mg daily - continue current management - Continue on current meds, encouraged healthy diet and exercise - Discussed increased risk of cdif and vit B12 deficiency with alf use of PPI. Recommend the following changes: [...] of cdif and vit B12 deficiency with exterminator helper termite use of PPI. Recommend the following changes: [...] of cdif and vit B12 deficiency with exterminator helper termite use of PPI. Recommend the following changes: [...] stomach. Assessment & Plan (05/26/2023 9:03 AM ADJUNCT INSTRUCTOR): Well controlled on esomeprazole Assessment & Plan (03/31/2020 2:25 PM CDT): Continue PPI. Assessment & Plan (07/26/2019 4:18 PM ADJUNCT INSTRUCTOR): Continue current PPI and the patient is [...] recommended. Assessment & Plan (05/21/2018 6:47 AM ADJUNCT INSTRUCTOR): Patient was provided with educational material regarding [...] 08/27/2024 Assessment & Plan (09/10/2023 1:27 PM ADJUNCT INSTRUCTOR): Vancomycin for presumed C diff recurrence. Probiotics hand hygiene and either consider ER or repeat visit here if worsens. Palpitations 08/07/2023 11/06/2023 Severe sepsis 06/24/2023 11/06/2023 Toxic metabolic encephalopathy 06/24/2023 11/06/2023 Hypopotassemia 06/24/2023 11/06/2023 Assessment & Plan (09/09/2023 9:18 AM ADJUNCT INSTRUCTOR): Improved with control of diarrhea. Repeat levels before next visit. V-tach 06/07/2023 11/06/2023 Assessment & Plan (06/09/2023 11:46 AM ADJUNCT INSTRUCTOR): Suspect multifactorial in setting of uncontrolled pain, [...] 11/06/2023 Assessment & Plan (05/26/2023 9:04 AM ADJUNCT INSTRUCTOR): Unclear etiology. X-rays of her left foot [...] 11/06/2023 Assessment & Plan (09/23/2022 3:13 PM ADJUNCT INSTRUCTOR): Recommend fluids, rest, humidification if needed. She [...] 10/08/2022 Assessment & Plan (08/05/2022 11:56 AM ADJUNCT INSTRUCTOR): Left lower extremity edema. I have written [...] 10/08/2022 Assessment & Plan (08/30/2022 4:51 PM ADJUNCT INSTRUCTOR): Recommend fluids, rest, humidification if needed. She was instructed to call back if symptoms do not improved in a week, or if worsening ones arise. Education provided. covid and flu swab negative augmentin bid for 10 days F/u in 2 weeks if no improvement Assessment & Plan (07/12/2020 7:09 PM ADJUNCT INSTRUCTOR): Repeat Augmentin for 10 days and follow-up with her manager of engineering if no improvement. Arthralgia of both hands [...] 18 Assessment & Plan (05/21/2018 6:46 AM ADJUNCT INSTRUCTOR): Patient will be placed on saline nasal [...] week. Assessment & Plan (07/28/2020 5:01 PM ADJUNCT INSTRUCTOR): Flu shot each April. Tetanus Booster every 10 years. COVID -19 vaccine when available. Shingrix recommended. Colonoscopy due April 2025. Mammogram due February 2021. Will see her back in 3 months with lab sooner if needed. Assessment & Plan (07/26/2019 4:20 PM ADJUNCT INSTRUCTOR): Flu shot each April. Tetanus booster every 10 years. Shingrix recommended. Colonoscopy due April 2025. Mammogram yearly. Follow-up the transportation assistant for breast exam and pelvic exam as they direct. We will see her back in 1 year for physical and fasting lab sooner if needed. Assessment & Plan (10/10/2018 10:28 PM CDT): Flu shot each April. Tetanus booster every 10 years. Shingrix recommended. Follow up with her transportation assistant as they direct. Colonoscopy due April 2025. Will see her back in 12 months with lab sooner if needed. Assessment & Plan (04/10/2017 8:02 PM CDT): Flu shot each April. Tetanus booster every 10 years. Follow-up with the transportation assistant for breast exam and pelvic exam as [...] Assessment & Plan (02/28/2020 8:57 AM CDT): Lovell refilled in office today as requested once [...] Encounters Date Type Department Care Team Description 06/20/2025 11:30 AM ADJUNCT INSTRUCTOR Office Visit [facility] Primary Care at [address] [phone] Yves Koch MD Dyslipidemia associated with type 2 diabetes mellitus (HCC) (Primary Dx); Type 2 diabetes mellitus without complication, without long-term current use of insulin (HCC); Class 1 obesity due to excess calories with serious comorbidity and body mass index (BMI) of 31.0 to 31.9 in adult; Moderate episode of recurrent major depressive disorder (HCC); Generalized anxiety disorder; CKD stage 3a, GFR 45-59 ml/min (HCC); Fibromyalgia; Spinal stenosis of lumbar region with neurogenic claudication; Family history of colon cancer; Encounter for screening colonoscopy 06/17/2025 Hospital Encounter [facility] [address] [place] [address] Toya Toro MD 04/19/2025 Nurse Triage [facility] Primary Care at [address] [phone] Yves Koch MD Generalized anxiety disorder; Recurrent major depressive disorder, in partial remission 04/17/2025 1:00 PM CDT Therapy [facility] Physical Therapy [place] [address] Douglas Acuna, PT S/P right rotator cuff repair (Primary Dx) 04/10/2025 11:15 AM CDT Therapy [facility] Physical Therapy [facility] [place] [address] Guanako Castano, PT S/P right rotator cuff repair (Primary Dx) 04/09/2025 10:42 AM CDT - 04/09/2025 11:59 PM CDT Hospital Encounter [facility] [address] [place] [address] S/P rotator cuff surgery; Traumatic tear of right rotator cuff, unspecified tear extent, initial encounter; Status post surgery; Biceps tendinitis of right upper extremity Discharge Disposition: Discharge to home or self care 04/09/2025 Orders Only [facility] [address] [place] [address] [place] [phone] Julian Rose PA 04/09/2025 Results Follow-Up [facility] [address] [place] [address] [place] [phone] Julian Rose PA MRI Shoulder Right WO Contrast 04/09/2025 Orders Only [facility] [address] [place] [address] [address], [place] [phone] Julian Rose PA Viral illness 04/09/2025 Results Follow-Up [facility] [address] [place] [address] [address], [place] [phone] Julian Rose PA Erythrocyte sedimentation rate, CRP (acute phase), CBC with auto differential, Differential, auto 04/08/2025 2:30 PM CDT Lab [address] S/P rotator cuff surgery; Status post surgery 04/08/2025 2:00 PM CDT Office Visit [facility] [address] [place] [address] [address] [place] [address] Julian Rose PA Traumatic tear of right rotator cuff, unspecified tear extent, initial encounter (Primary Dx); S/P rotator cuff surgery; Status post surgery; Biceps tendinitis of right upper extremity 04/08/2025 1:41 PM CDT - 04/08/2025 11:59 PM CDT Hospital Encounter [facility] [address], [place] [address] Discharge Disposition: Discharge to home or self care 04/08/2025 Orders Only [facility] [address] [place] [address] [address] [place] [phone] Julian Rose PA S/P rotator cuff surgery (Primary Dx); Traumatic tear of right rotator cuff, unspecified tear extent, initial encounter; Status post surgery; Biceps tendinitis of right upper extremity 04/07/2025 Telephone [facility] [address], [place] [phone] Boris Sweeney MD Post-op Problem from Last 3 Months Immunizations Immunization Administration Dates Next Due COVID-19 mRNA ([email or web address]) 0.3 m L (30 mcg) vaccine (12 years and up) 05/03/2023 Influenza, Quadrivalent, Alejandra l Culture-based MDCK, Preservative Free, Antibiotic Free, Intramuscular 05/18/2020 Influenza, Quadrivalent, Spl it, Preservative Free, Intramuscular 05/03/2023,05/21/2022,04/27/2021,05/21 Influenza, Trivalent, IM (MDV) 04/16/2013,2011 Influenza, Trivalent, Recomb inant, Egg Free, Preservative Free, Antibiotic Free, IM (FLUBLOK) 05/22/2014,05/22/2014 Influenza, Trivalent, Split, Preservative Free, Intradermal 06/14/2015 Influenza, Unspecified 06/20/2025(Deferr ed: Patient Refused),11/06/2024(Deferred: Patient Refused),07/17/2024(Deferred: Patient Refused),07/17/2023(Deferred: Patient Refused),04/04/2022(Deferred: Patient Refused),03/26/2021(Deferred: Patient [...] OTHER SURGICAL HISTORY tummy tuck 09/19/11: Dr Lewis [facility] OTHER SURGICAL HISTORY 07/17/2013 - 07/16/2014 ear infection, sinus infection: [facility] KNEE ARTHROPLASTY Right Knee replacement REDUCTION MAMMAPLASTY URETHRAL SLING 05/17/2017 - 06/15/2017 Dr Garcia SINUS SURGERY Deviated septum repair and Sinus surgery 2007 CT GUIDED TRANSFORAMINAL EPIDURAL INJECTION LUMBAR SACRAL [...] Septoplasty, tu rbinate reduction Hx Other Medical 01-HEAD TRIMMER Hx Other Medical Generalized anx iety Disorder with panick attacks Atopic rhinitis Allergic Rhiniti s Hx Other Medical Recurrent Genit al herpes Hx Other Medical tummy tuck Hx Other Medical upper respirato ry infection, sinus infection Hx Other Medical 02-ORTHOPEDIST Hx Other Medical fell-wrist pain Hx Other Medical ear infection, sinus infection Hx Other Medical fibromyalgia Hx Other Medical back pain; Comm ents: [facility] 11/19/2014 - Hx Other Medical high cholestero l; Comments: [facility] 11/19/2014 - Hx Other Medical osteoarthritis; Comments: [facility] 11/19/2014 - Hx Other Medical RHEUM- Alteri [...] materials from doctor or pharmacy Never 08/16/2023 [facility] Utilities Answer Date Recorded In the past 12 months has e electric, gas, oil, or water [employer] threatened to shut off services in your [...] often do you attend chur ch or yazidism services? Never 08/28/2023 Do you belong to any clubs o r organizations such as zoroastrian groups, unions, fraternal or athletic groups, or [...] on file Legal Sex Female 6:40 PM ADJUNCT INSTRUCTOR Gender Identity Female 05/19/2022 11:43 PM CDT Sexual Orientation Not on file Obstetrics History Para Term AB IAB SAB Ectopic Multiple Livin g Live Births 2 2 2 2 Date Outcome GA Total Labor Labor/2nd/3rd Weight Sex Type Anes PTL Dulce A1 A5 Name Clin Term Term Last Filed Vital Signs Vital Sign Reading Time Taken Comments Blood Pressure 130/78 06/20/2025 11:37 AM ADJUNCT INSTRUCTOR Pulse 78 06/20/2025 11:37 AM ADJUNCT INSTRUCTOR Temperature 36.8 C (98.2 F) 06/20/2025 11:37 AM ADJUNCT INSTRUCTOR Respiratory Rate 20 02/11/2025 12:00 PM CDT Oxygen Saturation 98% 06/20/2025 11:37 AM ADJUNCT INSTRUCTOR Inhaled Oxygen Concentration - - Weight 91.2 kg (201 lb 1.6 oz) 06/20/2025 11:37 AM ADJUNCT INSTRUCTOR Height 170.2 cm (5' 7) 06/20/2025 11:37 AM ADJUNCT INSTRUCTOR Body Mass Index 31.5 06/20/2025 11:37 AM ADJUNCT INSTRUCTOR Plan of Treatment Health Maintenance Due Date Last Done Comments Dilated Eye Exam 1965 Foot Exam 1965 Pneumococcal vaccine <65 (1 of 2 - PCV) 1986 Albumin Creatinine Ratio, Urine 10/08/2023 10/07/2022 Covid-19 Vaccine ( season) 2025 05/03/2023, 05/03/2023, 12/07/2020, Additional history exists Colon Cancer Screening-Colonoscopy 04/28/2025 04/28/2015, 04/28/2015 Hemoglobin A1C 07/25/2025 01/22/2025, 08/17, 02/21/2024, Additional history exists Cervical Cancer Screening 09/16/2025 09/16/2024 Influenza Vaccine (#1) 2026 , 05/21/2022, 04/27/2021, Additional history exists Postponed from 03/17/2025 (Patient declined, but will receive in the future) Lipid Panel 01/26/2026 01/26/2025, 08/17, 11/15/2023, Additional history exists Breast Cancer Screening-Mammogram 03/31/2026 03/31/2025, 12/20/2022, 03/11/2020, Additional history exists eGFR 03/31/2026 03/31/2025, 01/14, 01/22/2025, Additional history exists Depression Screening 06/20/2026 06/20/2025, 01/29/2025, 11/06/2024, Additional history exists Regular Well Visit/Exam 18-64 06/20/2026 06/20/2025, 02/20/2024, 11/25/2022, Additional history exists Osteoporosis Screening-Bone Density Scan 03/28/2027 03/28/2025, 03/20/2024, 05/10/2023, Additional history exists DTaP/Tdap/Td Vaccine (4 - Td or Tdap) 01/17/2031 01/17/2021, 05/22/2014, 05/22/2014, Additional history exists Colon Cancer Screening-CT Colonography Discontinued 04/28/2015, 04/28/2015 Colon Cancer Screening-DNA Stool Discontinued 04/28/2015, 04/28/2015 Colon Cancer Screening-FIT Discontinued 04/28/2015, Colon Cancer Screening-Sigmoidoscopy Discontinued 04/28/2015, 04/28/2015 Hepatitis C Screening Completed 07/11/2018 Zoster Vaccine Completed 10/15/2021, 08/13/2021 Hepatitis B Screening Completed 11/15/2023 Goals Goal Patient Goal Type Associated Problems Recent Progress Patient-Stated? Author CCM Chronic Pain Care Plan Chronic Care Management No Aida Rust, RN Note: Problem: Chronic Pain Goals: 1. [...] on stairs Contact your local community or senior center for information on exercise, fall prevention programs, or options for improving home safety. Medical Devices Implanted Type Area Route Carrier Device Identifier Shelf Expiration Date Model / Serial / Lot Musculoskeletal Transplant Allograft Putty Freeze Dried Filler 10cc Bone Void Dbx [id number] - [id number] Implanted:Qty: 1 on 05/20/2022 by Jerod Tello MD at [facility] Spine Lumbar Musculoskeletal Transplant 02/19/2024 [id number] / [id number] / Nuvasive Inc Spacer 3dp Interfixated Alif [id number] 15 Deg [id number] - [id number] Implanted:Qty: 1 on 05/20/2022 by Jerod Tello MD at [facility] Spine Lumbar Nuvasive Inc 11/23/2026 [id number] / / Nuvasive Inc Modulus [id number] 10d Xl Wide Cage Spinal Sterile Latex Free [id number] - [id number] Implanted:Qty: 1 on 05/20/2022 by Jerod Tello MD at [facility] Spine Lumbar Nuvasive Inc 11/25/2026 [id number] / / Musculoskeletal Transplant Allograft Putty Freeze Dried Filler 10cc Bone Void Dbx [id number] - [id number] - [id number] Implanted:Qty: 1 on 05/25/2022 by Jerod Tello MD at [facility] N/A: Spine Lumbar Musculoskeletal Transplant 02/23/2024 [id number] / [id number] / Allosource Crushed Fresh Frozen Cancellous 1-4mm Graft 15ml Bone [id number] - [id number] Implanted:Qty: 1 on 05/25/2022 by Jerod Tello MD at [facility] N/A: Spine Lumbar Allosource 10/23/2022 [id number] / / [id number] Depuy Synthes Spine Expedium 1 Inner Monoaxial Spine Screw Set Titanium [id number] - [id number] Implanted:Qty: 6 on 05/25/2022 by Jerod Tello MD at [facility] N/A: Spine Lumbar Depuy Synthes Spine [id number] / / Depuy Synthes Spine Expedium 7mm 45mm 1 Innie Polyaxial Spine Screw Bone Titanium [id number] - [id number] Implanted:Qty: 5 on 05/25/2022 by Jerod Tello MD at [facility] N/A: Spine Lumbar Depuy Synthes Spine [id number] / / Depuy Synthes Spine Expedium 7mm 50mm 1 Innie Polyaxial Spine Screw Bone Titanium [id number] - [id number] Implanted:Qty: 1 on 05/25/2022 by Jerod Tello MD at [facility] N/A: Spine Lumbar Depuy Synthes Spine [id number] / / Depuy Synthes Spine Expedium 5.5mm 55mm Line Prebent Dorian Spinal Titanium Nonsterile [id number] - [id number] Implanted:Qty: 2 on 05/25/2022 by Jerod Tello MD at [facility] N/A: Spine Lumbar Depuy Synthes Spine [id number] / / Cerapedics Inc Graft Bone Filler Peptide Enhanced Syr I Factor 1cc Putty 700-010 - [id number] Implanted:Qty: 1 on 06/05/2023 by Neo Botello MD PhD at [facility] DTT Inc [id number] 09/13/2025 7 -010 / / [id number] Medtronic Inc Kit Graft Bone Sponge Xlg Infuse 8cc Granules [id number] - [id number] Implanted:Qty: 1 on 06/05/2023 by Neo Botello MD PhD at [facility] Medtronic Inc [id number] 12/15/2024 75 [id number] / / [id number] Cerapedics Inc Allograft Bone Putty 2.5cc 700-025 - [id number] Implanted:Qty: 1 on 06/05/2023 by Neo Botello MD PhD at [facility] Glaukos [id number] 09/13/2025 7 00-025 / / [id number] Depuy Synthes Spine Bowti 24mm Spine Staple Bone Titanium [id number] - [id number] Implanted:Qty: 1 on 06/05/2023 by Neo Botello MD PhD at [facility] Depuy Synthes Spine [id number] / / Depuy Synthes Spine Bowti 30mm Antibackout Spine Anterior Screw Bone Titanium [id number] - [id number] Implanted:Qty: 1 on 06/05/2023 by Neo Botello MD PhD at [facility] Depuy Synthes Spine [id number] / / Globus Medical [id number] Fortify 04x93tg 20mm Spacer Spinal Nonsterile Latex Free - [id number] Implanted:Qty: 1 on 06/05/2023 by Neo Botello MD PhD at [facility] [employer] 151.1 53 / / Gl[employer] Medical [id number] Fortify 29b58ch Footprint Upper Endplate Sagittal Profile 4d 25mm Latex Free - [id number] Implanted:Qty: 1 on 06/05/2023 by Neo Botello MD PhD at [facility] [employer] 151.4 33 / / Gl[employer] Medical 214124 Fortify [id number] Footprint Lower Endplate Sagittal Profile 16d 25 Latex Free - [id number] Implanted:Qty: 1 on 06/05/2023 by Neo Botello MD PhD at [facility] [employer] 151.4 86 / / [employer] Medical [id number] [place] 25mm Fixed Angle Spine Screw Bone - [id number] Implanted:Qty: 1 on 06/05/2023 by Neo Botello MD PhD at [facility] [employer] 176.1 25 / / Gl[employer] Medical Ronald Thread Blunt Tip Wire Fixation 6133.0399s - [id number] Implanted:Qty: 1 on 06/12/2023 at [facility] N/A: Spine Lumbar [employer] 6133.0399S / / Medtronic Inc Kit Graft Bone Sponge Xlg Infuse 8cc Granules [id number] - [id number] Implanted:Qty: 1 on 06/12/2023 by Neo Botello MD PhD at [facility] N/A: Spine Lumbar Medtronic Inc [id number] / / Cerapedics Inc Allograft Bone Putty 2.5cc 700-678 - [id number] Implanted:Qty: 1 on 06/12/2023 by Neo Botello MD PhD at [facility] N/A: Spine Lumbar Cerapedics Inc 700-025 / / Si-Bone Kit Spinal Sacroiliac Joint Ifuse [place]rock [place] 10.5x90mm [id number] - [id number] - [id number] Implanted:Qty: 1 on 06/12/2023 by Neo Botello MD PhD at [facility] N/A: Spine Lumbar Si-Bone [id number] 02/29/2028 778143TS / [id number] 3-072 / Si-Bone Kit Spinal Sacroiliac Joint Ifuse Bedrock [place] 10.5x90mm [id number] - [id number] - [id number] Implanted:Qty: 1 on 06/12/2023 by Neo Botello MD PhD at [facility] N/A: Spine Lumbar Si-Bone [id number] 02/29/2028 [id number] / [id number] 3-101 / Globus Medical Creo Amp 6.5mm 45mm Cannulated Modular Spine Screw Bone 1067.4645 - [id number] Implanted:Qty: 2 on 06/12/2023 by Neo Botello MD PhD at [facility] N/A: Spine Lumbar [employer] 1067.4645 / / Glob[employer] Medical Creo 6.5mm 50mm Cannulated Modular Spine Screw Bone 1067.4650 - [id number] Implanted:Qty: 2 on 06/12/2023 by Neo Botello MD PhD at [facility] N/A: Spine Lumbar [employer] 1067.4650 / / Gl[employer] Medical Creo 7.5mm 50mm Cannulated Modular Spine Screw Bone 1067.4750 - [id number] Implanted:Qty: 2 on 06/12/2023 by Neo Botello MD PhD at [facility] N/A: Spine Lumbar [employer] 1067.4750 / / Gl[employer] Medical Creo 7.5mm 30mm Cannulated Modular Spine Screw Bone 1067.4730 - [id number] Implanted:Qty: 1 on 06/12/2023 by Neo Botello MD PhD at [facility] N/A: Spine Lumbar [employer] 1067.4730 / / Gl[employer] Medical Creo Amp 7.5mm 25mm Cannulated Modular Spine Screw Bone 1067.4764 - [id number] Implanted:Qty: 1 on 06/12/2023 by Neo Botello MD PhD at [facility] N/A: Spine Lumbar [employer] 1067.4725 / / Glob[employer] Medical Quin 40t0-32ny 5-20d 20mm Spacer Spinal 1122.1055 - [id number] Implanted:Qty: 1 on 06/12/2023 by Neo Botello MD PhD at [facility] N/A: Spine Lumbar [employer] 1122.1055 / / Glob[employer] Medical Screw Spinal Anterior Lumbar Self Drilling Solid [place] 5.5x30mm Titanium 176.730 - [id number] Implanted:Qty: 2 on 06/12/2023 by Neo Botello MD PhD at [facility] N/A: Spine Lumbar [employer] 176.730 / / Gl[employer] Medical 1134.518 Creo Mis 5.5mm 180mm Straight Dorian Spinal Titanium - [id number] Implanted:Qty: 2 on 06/12/2023 by Neo Botello MD PhD at [facility] N/A: Spine Lumbar [employer] 1134.5180 / / Gl[employer] Medical Creo Amp 7.5mm 40mm Cannulated Modular Spine Screw Bone 1067.4740 - [id number] Implanted:Qty: 2 on 06/12/2023 by Neo Botello MD PhD at [facility] N/A: Spine Lumbar [employer] 1067.4740 / / Glob[employer] Medical [id number] Rise-L [id number] 3d Lordotic Spacer Spinal Nonsterile - [id number] Implanted:Qty: 1 on 06/12/2023 by Neo Botello MD PhD at [facility] N/A: Spine Lumbar [employer] 193.605 / / Gl[employer] Medical 1134.001 Creo Spinal Cap Locking Nonsterile Mis - [id number] Implanted:Qty: 10 on 06/12/2023 by Neo Botello MD PhD at [facility] N/A: Spine Lumbar [employer] 1134.0010 / / Gl[employer] 1134.01 Creo Mis 30mm Modular Polyaxial Tulip Head Screw Bone - [id number] Implanted:Qty: 10 on 06/12/2023 by Neo Botello MD PhD at [facility] N/A: Spine Lumbar [employer] 1134.0100 / / Arthrex Inc Swivelock C 4.75mm 19.1mm Closed Eyelet Vent [place] Suture Ar-2324bcc - [id number] Implanted:Qty: 1 on 02/11/2025 by Boris Sweeney MD at [facility] Right: Shoulder Arthrex Inc 09/13/2028 AR-2324BCC / / [id number] Arthrex Inc Swivelock C 4.75mm 19.1mm Closed Eyelet Vent [place] Suture Ar-2324bcctt - [id number] Implanted:Qty: 1 on 02/11/2025 by Boris Sweeney MD at [facility] Right: Shoulder Arthrex Inc 06/15/2028 AR-2324BCC TT / / [id number] Arthrex Inc Swivelock C 4.75mm 19.1mm Close Eyelet Tape Loop Vent [place] Ar-2324bcct - [id number] Implanted:Qty: 1 on 02/11/2025 by Boris Sweeney MD at [facility] Right: Shoulder Arthrex Inc 07/16/2028 AR-2324BCC T / / [id number] Arthrex Inc Swivelock C 4.75mm 19.1mm Closed Eyelet Vent [place] Suture Ar-2324bcc - [id number] Implanted:Qty: 1 on 02/11/2025 by Boris Sweeney MD at [facility] Right: Shoulder Arthrex Inc 09/13/2028 AR-2324BCC / / [id number] Procedures Procedure Name Priority Date/Time Associated Diagnosis Comments MRI SHOULDER RIGHT WO CONTRAST Schedule ABHINAV, Read ABHINAV (Appt Today, Awaiting Results) 04/09/2025 11:42 AM CDT S/P rotator cuff surgery Traumatic tear of right rotator cuff, unspecified tear extent, initial encounter Status post surgery Biceps tendinitis of right upper extremity DIFFERENTIAL AUTO Routine 04/08/2025 2:1 8 PM CDT S/P rotator cuff surgery Status post surgery CBC WITH AUTO DIFFERENTIAL Routine 04/08/2025 2:18 PM CDT S/P rotator cuff surgery Status post surgery CRP (ACUTE PHASE) Routine 04/08/2025 2:1 8 PM CDT S/P rotator cuff surgery Status post surgery ERYTHROCYTE SEDIMENTATION RATE Routine 04/08/2025 2:18 PM CDT S/P rotator cuff surgery Status post surgery XR SHOULDER RIGHT 2 OR MORE VIEWS Routine 04/08/2025 1:52 PM CDT S/P rotator cuff surgery SCREENING MAMMOGRAM BILATERAL W ERIC Schedule Routine, Read Routine (OP Routine) 03/31/2025 12:04 PM CDT Screening mammogram, encounter for EGFR Routine 03/31/2025 11:42 AM CDT Brittle bones Failed back surgical syndrome Osteopenia of multiple sites Osteopenia, unspecified location DEXA TBS AXIAL SKELETON BONE DENSITY 1 OR MORE SITES Schedule Routine, Read Routine (OP Routine) 03/28/2025 12:35 PM CDT Osteopenia of left hip LIPID PANEL Routine 01/26/2025 6:35 PM CDT Mixed hyperlipidemia HEMOGLOBIN A1C Routine 01/22/2025 8:00 AM CDT Type 2 diabetes mellitus without complication, without long-term current use of insulin (HCC) ALBUMIN CREATININE RATIO, URINE Routine 10/07/2022 2:56 PM CDT IFG (impaired fasting glucose) HEPATITIS C AB REFLEX RNA QUANT PCR Routine 07/11/2018 8:46 AM ADJUNCT INSTRUCTOR Need for hepatitis C screening test COLONOSCOPY IMAGES 04/28/2015 from Last 3 Months or Most Recently Relevant to Health Maintenance Results * MRI Shoulder Right WO Contrast (04/09/2025 11:42 AM CDT) Anatomical Region Laterality Modality Upper Extremities Right Magnetic Reson ance 04/09/2025 12:0 3 PM CDT Narrative 04/09/2025 12:14 PM CDT EXAM DESCRIPTION: MRI SHOULDER RIGHT WO CONTRAST REASON FOR STUDY: pain Patient fell in October. She is s/p shoulder surgery and is still having superior lateral pain TECHNIQUE: Multiplanar, multisequence MRI of the right shoulder was performed without contrast. COMPARISON: MR 10/31/2024 FINDINGS: Evaluation limited by patient motion. There has been interval distal clavicular excision with subacromial decompression. Distal clavicular and acromion marrow edema is present. The joint space is distended which communicates with the subacromial subdeltoid bursa. Moderate to severe subacromial subdeltoid bursitis. The rotator cuff muscle bulk is normal. Insertional subscapularis tendinosis with partial-thickness tearing superiorly. Interval biceps tenodesis. The biceps tendon is torn with distal retraction of the tendinopathic stump. Interval rotator cuff repair has been performed. Recurrent 12 x 7 mm partial-thickness articular sided tear of the anterior supraspinatus footprint. The repaired cuff is tendinopathic. Marrow edema is present involving the humeral head at the anchor site. On this non arthrographic evaluation, the superior glenoid labrum appears intact. The labrum below the equator is normal. Mild glenohumeral chondrosis. Moderate size shoulder effusion is present with moderate synovitis greatest at the subcoracoid recess. IMPRESSION: 1. Interval right rotator cuff repair with recurrent 12 x 7 mm partial-thickness articular sided tear of the anterior supraspinatus footprint. The repaired cuff is tendinopathic. 2. Interval right distal clavicular excision with subacromial decompression. Distal clavicular and acromion marrow edema is present. The joint space is distended which communicates with the subacromial subdeltoid bursa. Moderate to severe subacromial subdeltoid bursitis. 3. Insertional right subscapularis tendinosis with partial-thickness tearing superiorly. 4. Interval biceps tenodesis with likely tear of the biceps tendon and distal retraction of the tendinopathic stump. 5. Mild right glenohumeral chondrosis with a moderate-sized shoulder effusion and moderate synovitis. THIS IS AN ELECTRONICALLY VERIFIED FINAL REPORT 04/09/2025 12:14 PM - Electronically signed by Mitch Aragon M.D. MF: [id number] Report ID: [id number] Reading Location: [id number] Procedure Note Mitch Aragon MD - 04/09/2025 EXAM DESCRIPTION: MRI SHOULDER RIGHT WO CONTRAST REASON FOR STUDY: pain Patient fell in October. She is s/p shoulder surgery and is still having superior lateral pain TECHNIQUE: Multiplanar, multisequence MRI of the right shoulder was performed without contrast. COMPARISON: MR 10/31/2024 FINDINGS: Evaluation limited by patient motion. There has been interval distal clavicular excision with subacromial decompression. Distal clavicular and acromion marrow edema is present.The joint space is distended which communicates with the subacromialsubdeltoid bursa. Moderate to severe subacromial subdeltoid bursitis. The rotator cuff muscle bulk is normal. Insertional subscapularistendinosis with partial-thickness tearing superiorly. Interval biceps tenodesis.The biceps tendon is torn with distal retraction of the tendinopathic stump. Interval rotator cuff repair has been performed. Recurrent 12 x 7 mm partial-thickness articular sided tear of the anterior supraspinatus footprint. The repaired cuff is tendinopathic. Marrow edema is present involving the humeral head at the anchor site. On this non arthrographic evaluation, the superior glenoid labrum appears intact. The labrum below the equator is normal. Mild glenohumeralchondrosis. Moderate size shoulder effusion is present with moderate synovitisgreatest at the subcoracoid recess. IMPRESSION: 1. Interval right rotator cuff repair with recurrent 12 x 7 mm partial-thickness articular sided tear of the anterior supraspinatus footprint. The repaired cuff is tendinopathic. 2. Interval right distal clavicular excision with subacromialdecompression. Distal clavicular and acromion marrow edema is present. The joint space is distended which communicates with the subacromial subdeltoid bursa.Moderate to severe subacromial subdeltoid bursitis. 3. Insertional right subscapularis tendinosis with partial-thicknesstearing superiorly. 4. Interval biceps tenodesis with likely tear of the biceps tendon and distal retraction of the tendinopathic stump. 5. Mild right glenohumeral chondrosis with a moderate-sized shoulder effusion and moderate synovitis. THIS IS AN ELECTRONICALLY VERIFIED FINAL REPORT 04/09/2025 12:14 PM - Electronically signed by Mitch Aragon M.D. MF: [id number] Report ID: [id number] Reading Location: [place] [address] Julian RAMOS IMG MRI PROCEDURES Fin al Result * (ABNORMAL) Differential, auto (04/08/2025 2:18 PM CDT) Neutrophil abs 4.76 1.50 - 6.50 K/cumm Imm gran abs 0.02 0.00 - 0.10 K/cumm [facility] ([place]) Lymphocyte abs 3.74(H) 0.80 - 3.30 K/cumm [facility] ([place]) Monocyte abs 0.79 0.20 - 0.80 K/cumm [facility] ([place]) Eosinophil abs 0.26 0.00 - 0.50 K/cumm [facility] ([place]) Basophil abs 0.07 0.00 - 0.10 K/cumm [facility] ([place]) Neutrophil pct 49.4 % [facility] ([place]) Comment: Interpretive Data Percent cell count reference ranges are not reported, since discordance with absolute values may lead to misinterpretation of CBC data. Current Interpretive Data was last revised on 2017. Imm gran pct 0.2 % [facility] ([place]) Comment: Interpretive Data Percent cell count reference ranges are not reported, since discordance with absolute values may lead to misinterpretation of CBC data. Current Interpretive Data was last revised on 2017. Lymphocyte pct 38.8 % [facility] ([place]) Comment: Interpretive Data Percent cell count reference ranges are not reported, since discordance with absolute values may lead to misinterpretation of CBC data. Current Interpretive Data was last revised on 2017. Monocyte pct 8.2 % [facility] ([place]) Comment: Interpretive Data Percent cell count reference ranges are not reported, since discordance with absolute values may lead to misinterpretation of CBC data. Current Interpretive Data was last revised on 2017. Eosinophil pct 2.7 % [facility] ([place]) Comment: Interpretive Data Percent cell count reference ranges are not reported, since discordance with absolute values may lead to misinterpretation of CBC data. Current Interpretive Data was last revised on 2017. Basophil pct 0.7 % [facility] ([place]) Comment: Interpretive Data Percent cell count reference ranges are not reported, since discordance with absolute values may lead to misinterpretation of CBC data. Current Interpretive Data was last revised on 2017. Blood 04/08/2025 2:18 PM CDT 04/08/2025 3:23 PM CDT us Julian RAMOS LAB BLOOD ORDERABLES F inal Result [facility] ([place]) [address] [facility] [place] [address] * (ABNORMAL) CBC with auto differential (04/08/2025 2:18 PM CDT) WBC 9.64 3.80 - 9.90 K/cumm Hgb 13.6 11.9 - 15.5 g/dL [facility] ([place]) Hct 42.4 35.6 - 45.5 % [facility] ([place]) Plt 353 150 - 400 K/cumm [facility] ([place]) MPV 9.3 9.1 - 12.3 fL [facility] ([place]) RBC 4.63 3.90 - 5.20 M/cumm [facility] ([place]) MCV 91.6 81.3 - 96.4 fL [facility] ([place]) MCH 29.4 27.1 - 33.3 pg [facility] MCHC 32.1(L) 32.3 - 35.7 g/dL [facility] ([place] RDW CV 15.1(H) 11.1 - 14.9 % [facility] ([place]) RDW SD 50.7(H) 35.7 - 48.1 fL [facility] NRBC abs 0.00 0.00 - 0.01 K/cumm [facility] Blood 04/08/2025 2:18 PM CDT 04/08/2025 3:23 PM CDT Julian RAMOS LAB BLOOD ORDERABLES F inal Result Performing Organization Address City/[facility]/ZIP Co de Phone Number [facility] ([place]) 1 [facility] [place] [address] * Erythrocyte sedimentation rate (04/08/2025 2:18 PM CDT) Pathologist [facility] Erythrocyte sedimentation rate 20 1 - 30 mm/hr Blood 04/08/2025 2:18 PM CDT 04/08/2025 3:23 PM CDT Julian RAMOS LAB BLOOD ORDERABLES F inal Result Performing Organization Address City/[facility]/ZIP Co de Phone Number [facility] 1 [facility] [place] [employer] [place] [address] * (ABNORMAL) CRP (acute phase) (04/08/2025 2:18 PM CDT) CRP 21.2(H) <=10.0 mg/L [facility] Cam[facility] ([place]) Blood 04/08/2025 2:18 PM CDT 04/08/2025 3:23 PM CDT Julian RAMOS LAB BLOOD ORDERABLES F inal Result [facility] ([place]) [address] [facility] [place] [address] * XR Shoulder Right 2 or More Views (04/08/2025 1:52 PM CDT) Anatomical Region Laterality Modality Upper Extremities, Shoulder Right Digi robert Radiography Narrative 04/08/2025 1:56 PM CDT Views of the right shoulder reviewed interpreted today. No evidence of fracture or dislocation. Changes related to previous distal claviculectomy subacromial decompression noted. There are tiny screws noted from her glasses that she had on her chest during x-ray. Julian RAMOS IMG XR PROCEDURES Edit ed Result - Final * Screening Mammogram Bilateral W Eric (03/31/2025 12:04 PM CDT) Anatomical Region Laterality Modality Breast Bilateral Mammography Impressions 03/31/2025 12:25 PM CDT Bilateral No evidence of malignancy in either breast. OVERALL BI-RADS FINAL ASSESSMENT: 2 - Benign RECOMMENDATION: Recommend bilateral annual screening mammography. Narrative 03/31/2025 12:25 PM CDT EXAMINATION: Screening Mammogram Bilateral W Eric: 03/31/2025 COMPARISON: Relevant prior studies available at the time of interpretation were reviewed, including the most recent mammogram on: 12/20/2022. TECHNIQUE: Mammography was performed with 2D and 3D digital breast tomosynthesis (DBT) images. CAD was utilized. BREAST PARENCHYMAL COMPOSITION: There are scattered areas of fibroglandular density. FINDINGS: There are stable postoperative changes of bilateral reduction mammoplasty with associated benign dystrophic calcifications, compatible with fat necrosis. There are no suspicious masses, suspicious calcifications, or other suspicious findings in either breast. There has been no suspicious interval change. Self Screening Mammogram IMG MAMMO PROCEDURES Fi nal Result * eGFR (03/31/2025 11:42 AM CDT) eGFR 70 >=60 mL/min/1. 73 m2 Comment: Interpretive Data [...] interpretive data was last reviewed 2021. Blood 03/31/2025 11:4 2 AM CDT 03/31/2025 11:52 AM CDT us Florence Rausch MD LAB BLOOD ORDERABLES Final Result [facility] [place] [address] [facility] [place] [address] * Dexa TBS Axial Skeleton Bone Density 1 or more sites (03/28/2025 12:35 PM CDT) Anatomical Region Laterality Modality Wrist, Body N/A Radiographic Gloria ging Narrative 03/28/2025 4:31 PM CDT Patient Name: Alena Deras Date of : 1965 Date of scan: 03/28/2025 Bone mineral density was performed on a [employer] Discovery Densitometer. Based on machine cross-calibration and [...] density scan were prepared by Arina Amor) JOSE LUIST who is accredited by the International Society of Clinical Densitometry. The overall patient assessment and scan interpretation were performed by Florence Rausch M.D. who is certified by the International Society of Clinical Densitometry. [id number] Florence Rausch MD IMG DXA PROCEDURES Final R esult * (ABNORMAL) Lipid panel (01/26/2025 6:35 PM CDT) Cholesterol 193 30 - 199 mg/dL [facility] [...] LDL, calculated 108 <=129 mg/dL [facility] ([place]) Comment: Interpretive Data Ages < or = [...] NCEP Expert Panel. Circulation 2004;110:227 3. Hugh Crowley al. ARTI Cardiol. 2019November 14;5(5):540-548. doi: 10.1001/jamacardio.2020.0013 Current Interpretive Data was last revised on 2024. Testing performed by: [place], [address] Non-HDL Cholesterol 161 mg/dL [facility] ([place]) Comment: Interpretive Data [...] last revised on 2018. Testing performed by: [place], [address] Chol/HDL ratio 6 [facility] ([place]) Comment:Testing performed by : [place], [address] Blood 01/26/2025 6:35 PM CDT 01/29/2025 11:50 AM CDT Narrative [facility] ([place]) - 01/29/2025 12:18 PM CDT Has the patient been fasting for 8 hours or more?->No Yves Koch MD LAB BLOOD ORDERABLES nal Result Performing Organization Address [facility] de Phone Number [facility] ([place]) 1 [place] [address] * (ABNORMAL) Hemoglobin A1c (01/22/2025 8:00 AM CDT) Hgb A1C 6.2(H) 4.0 - 5.6 % Estimated Average Glucose 131 mg/dL [facility] ([place]) Comment: The ADA recommends reporting an estimated Average Glucose (eAG) with all Hemoglobin A1c results using the equation derived from a study of 507 normal and diabetic adults. Minority populations were underrepresented and children were not included. (Diabetes Care 31:5338-7582, 2008). The eAG is not equivalent to a fasting glucose. Blood 01/22/2025 8:00 AM CDT 01/22/2025 8:07 AM CDT Yves Koch MD LAB BLOOD ORDERABLES nal Result Performing Organization Address [facility] Co de Phone Number [facility] ([place]) 1 [facility] [place] [address] * Albumin Creatinine Ratio, Urine (10/07/2022 2:56 PM CDT) Albumin Ur <12.0 mg/L [facility] ([place]) Comment: Interpretive Data No reference range established. Current interpretive data was last revised 2018. Testing performed by: [facility], [address] [place] [address], [place]., [address] Creatinine Ur 34.7 mg/dL [facility] ([place]) Comment: Interpretive Data No reference range established. Current interpretive data was last revised 2018. Testing performed by: [facility], [address] [place] [address]., [address] Albumin Creatinine Ratio, Ur See Comment 1 - 29 [facility] ([place]) Comment: Unable to calculate Testing performed by: [facility], [address] [place] [address]., [address] Urine 10/07/2022 2:56 PM CDT 10/07/2022 6:39 PM CDT Getachew RAMOS LAB URINE ORDERABLES Fi nal Result [facility] ([place]) [address] [facility] [place] [address] * Hepatitis C Antibody Reflex Hepatitis C RNA Quantitative PCR Blood (07/11/2018 8:46 AM ADJUNCT INSTRUCTOR) Hep C Ab Negative Negative [facility] Blood specimen (specimen) 07/11/2018 8:46 AM ADJUNCT INSTRUCTOR 07/11/2018 2:12 PM ADJUNCT INSTRUCTOR Narrative [facility] - 07/11/2018 2:57 PM ADJUNCT INSTRUCTOR Danilo Lopez MD LAB MICROBIOLOGY - GENERAL O RDERABLES Final Result Performing Organization Address City/[facility]/ZIP Co de Phone Number [facility] [address] [facility] [place] [address] * COLONOSCOPY IMAGES (04/28/2015) Anatomical Region Laterality Modality Other Narrative 04/28/2015 Ordered by an unspecified provider. Historical Provider GI PROCEDURE ORDERABLES F inal Result from Last 3 Months or Most Recently Relevant to Health Maintenance Insurance [facility] [employer] [facility] Address: [address] [address] [place] [address] [employer] [facility] [employer] Address: [address] [address] [place] [address] [employer] Advance Directives For more information, please contact: [phone] * Full Code (Latest Code Status on [...] 4:34 PM 05/28/2022 9:15 PM Care Teams Ad Terminal Makeup Operator Relationship Specialty Start Date End Date Yves Koch MD [address] [facility] [address] [place] [address] PCP - General Family Medicine 12/25/24 Mc Herrera MD Consulting Physician Infectious Diseases 07/03/23 Loretta Rincon MD PhD [address] [address] Dermatology 11/06/23 Florence Rausch MD [address] [facility] [address] [place] [address] Consulting Physician Internal Medicine 11/06/23 Neo Botello MD PhD [address] [facility] [address] [place] [address] Consulting Physician Neurosurgery 11/06/23 Sabas Perez MD [address] [place] [address] [address] [facility] [address] [place] [address] Back Up Machine Operator Obstetrics and Gynecology 11/06/23 Johan Jang MD [address] [place] [address] [address] [place] [address] Consulting Physician Psychiatry 02/20/24 Manish Perez NP [address] [place] [address] [address] [place] [address] Nurse Practitioner Orthopedic Surgery 02/11/25
[2025-07-06 08:21] VITALS: BP 124/89; PULSE 109; RESP 20; TEMP 35.9; O2SAT 100
--- NOTE | 2025-07-06 08:37 | ED.GENADULT ---
HPI - General Adult General Chief complaint: Ear Stated complaint: Left Ear Pain/Poss Sinus Problem Time Seen by Provider: 07/06/25 08:37 Source: patient, RN notes reviewed and old records reviewed Mode of arrival: ambulatory Limitations: no limitations History of Present Illness HPI narrative: 60-year-old female who presents to [facility] with complaints of 2 week duration of sinus congestion with drainage facial pressure especialyl to left side of the face and some left ear discomfort. Patient reports that she has had some chills vut has not had a known fever. Patient reports some headache discomfort and patient also states some intermittent dizziness. Discussed use of Amoxicillin with clavulanate and importance of taking probiotic or eating activia yogurt with this medication. Patient reports history of C- diff and states takes probiotic daily.Patient has been taking Mucinex and DayQuil and NyQuil for her present symptoms. MD complaint: sinus congestion and drainage, headache and sinus pressure ear pain Onset (ago): week(s) (2) Location: face Severity: moderate Severity scale (1-10): 5 Treatments prior to arrival: other (mucinex, DayQuil and NyQuil) Related Data Home Medications ?Medication ?Instructions ?Recorded ?Confirmed ?Last Taken ?Type esomeprazole magnesium 20 mg 20 mg PO DAILY 06/16/21 03/24/22 Unknown History capsule,delayed release (Nexium 24HR) paroxetine HCl 40 mg tablet 40 mg PO DAILY 06/16/21 03/24/22 Unknown History valacyclovir 1 gram tablet 1 mg PO DAILY 06/16/21 03/24/22 Unknown History atorvastatin 10 mg tablet 10 mg PO DAILY 03/24/22 03/24/22 Unknown History prazosin 1 mg capsule 1 mg PO DAILY 03/24/22 03/24/22 Unknown History buspirone 10 mg tablet mg 03/30/25 Unknown History cyclobenzaprine 5 mg tablet mg 03/30/25 Unknown History empagliflozin 25 mg tablet mg 03/30/25 Unknown History (Jardiance) hydrocodone 5 mg-acetaminophen 325 tablet 03/30/25 Unknown History mg tablet pregabalin 150 mg capsule mg 03/30/25 Unknown History Allergies Allergy/AdvReac Type Severity Reaction Status Date / Time No Known Allergies Allergy Verified 03/30/25 14:23 Review of Systems Review of Systems: CONSTITUTIONAL: reports malaise, +chills, sweats, no fever. EYES: Denies visual changes, redness, or discharge. ENT: Reports rhinorrhea, congestion, sinus pain, left otalgia and no sore throat. CARDIOVASCULAR: Denies chest pain, palpitations, or edema. RESPIRATORY: Reports occasional cough.? Denies dyspnea. GASTROINTESTINAL: Denies abdominal pain, nausea, vomiting, diarrhea SKIN: Denies rash or itching. MUSCULOSKELETAL: Denies myalgia. NEUROLOGIC: reports headache. and some dizziness. All systems reviewed & are unremarkable except as noted in HPI and below PMFSH Past Medical History Medical History History of Clostridium difficile infection Back pain Bilateral hand pain Fibromyalgia GERD (gastroesophageal reflux disease) Arthritis Anxiety IBS (irritable bowel syndrome) Migraines Depression Surgical History Surgical History H/O right shoulder surgery and bicep tendon repair History of tonsillectomy History of appendectomy History of cholecystectomy History of total right knee replacement Family History Family History Mother Depression Anxiety Father Hypertension Grandparent Anxiety Depression Heart attack Grandparent Dementia Grandparent Carcinoma of colon Alzheimer disease Social History Social History Smoking packs per day: 0.5 Smoking cigarettes per day: 10.0 Years smoked: 18 Smoking pack-years: 9.00 Smoking status: Former smoker Tobacco type: cigarettes Alcohol intake: current Alcohol use details: Wine- occasionally Substance use: never Substance use type: does not use Living arrangements: alone Additional living arrangements comments: Occupation/Education: occupation Gender identity (if verbalized by the patient): Female Comments At time of signature, agree with nursing past medical, surgical, social and family history. There is no relevant family history pertinent to the presenting complaint Exam Narrative: GENERAL: Well-appearing, well-nourished, and in no acute distress. HEAD: Normocephalic EYES: PERRLA, conjunctivae clear ENT: Nares clear, turbinates edematous and erythematous, clear to light yellow drainage, facial pressure and headache discomfort.. Mucous membranes moist. TM pearly nolan with dull light reflex bilaterally; no tragal tenderness. Oropharynx erythematous without lesions. Tonsils not present and throat without exudate, no drooling, no hoarseness, no trismus, uvula midline.post nasal draiange noted. NECK: Supple. No lymphadenopathy CHEST: Clear to auscultation, breath sounds equal. No wheezing, rhonchi, rales, or stridor. No respiratory distress, speaks in full sentences.occasional cough noted SAO2 100% on room air HEART: Regular rate and rhythm. No murmur heard. SKIN: Warm, dry, no rash. NEURO: Alert and oriented x3. PSYCH: Normal mood and affect Course Course Level of Care: Express Care Visit Vital Signs Vital signs: Vital Signs Temperature 35.9 C L 07/06/25 08:21 Pulse Rate 109 H 07/06/25 08:21 Respiratory Rate 20 07/06/25 08:21 Blood Pressure 124/89 07/06/25 08:21 Pulse Oximetry 100 07/06/25 08:21 Oxygen Delivery Room Air 07/06/25 08:21 Temperature 35.9 C L 07/06/25 08:21 Pulse Rate 109 H 07/06/25 08:21 Respiratory Rate 20 07/06/25 08:21 Blood Pressure 124/89 07/06/25 08:21 Pulse Oximetry 100 07/06/25 08:21 Oxygen Delivery Room Air 07/06/25 08:21 reviewed MDM MDM Narrative Medical decision making narrative: 60 year old female who presents to express care with 2 week duration of sinus congestion and drainage , left ear pain,facial pressure and headache with some dizziness. Will treat patient with Augmentin for sinus infection and medrol dose pack for ear fullness and dizziness with patient to treat symptoms with OTC medications. Ancipatory guidance and reasons to seek care in ED reviewed with patient with understanding voiced. Differential Diagnosis Differential Diagnosis: Differential diagnostic considerations for upper respiratory infection include upper respiratory infection, croup, otitis media, sinusitis, viral infection, bronchitis, influenza, pharyngitis, strep, uvulitis.? Critical Care Time Critical Care Time Critical Care Time: No Discharge Plan Discharge Clinical Impression: Sinusitis Qualifiers: Sinusitis location: pansinusitis Chronicity: acute Recurrence: not specified as recurrent Qualified Code(s): J01.40 - Acute pansinusitis, unspecified Patient Disposition: Home Condition: Stable Instructions: Antibiotic Form, Sinusitis (ED) Additional Instructions: Increase fluids especially juices and water [id number] cough and cold medicine of your choice for your symptoms Zyrtec Claritin or Terrie daily may include Coricidin brand decongestant Steroids as directed--take with food heat to the face 20-30 minutes 4-6 times a day for pain Salt water gargles, throat lozenges or throat sprays as desired Antibiotic as directed--finished the medication pack recommend taking a probiotic or eating Activia yogurt daily If your symptoms persist, change or worsen significantly before you can contact your personal physician then please, without delay, go to the emergency department for further evaluation. Follow-up with PCP in 7-10 days or sooner if needed Follow up with PCP soon in regards to your blood pressure which is elevated above threshold for referral. Blood pressure above 120/80 may indicate pre-hypertension. 124/89 minimal elevation Patient Language: Greek Prescriptions: New amoxicillin-pot clavulanate 875-125 mg tablet 1 tablet PO Q12H Qty: 20 0RF Rx Instructions: take with food and recommend taking a probiotic or eating activa yogurt while on this antibiotic methylprednisolone [Medrol (Singh)] 4 mg tablets,dose pack See Rx Instructions .ROUTE .COMPLEX Qty: 21 0RF Rx Instructions: orally per package directions No Action atorvastatin 10 mg tablet 10 mg PO DAILY prazosin 1 mg capsule 1 mg PO DAILY paroxetine HCl 40 mg tablet 40 mg PO DAILY valacyclovir 1 gram tablet 1 mg PO DAILY esomeprazole magnesium [Nexium 24HR] 20 mg Capsule,Delayed Release(Dr/Ec) 20 mg PO DAILY hydrocodone-acetaminophen 5-325 mg tablet buspirone 10 mg tablet cyclobenzaprine 5 mg tablet pregabalin 150 mg capsule Jardiance 25 mg tablet Follow-up/Referrals: August,Yves Bailey MD [Primary Care Provider, Unknown] Time of Disposition: 08:48 Quality [place] Coma Scale Eyes: Open Verbal: Oriented and Alert Motor: Follows Commands [place] Coma Total Score: 15
== END 2025-07-06 08:59 | disposition home or self-care (01) ==
PROVIDERS: Emergency Provider Registered Nurse; PCP Family Medicine
DX: J01.40 Acute pansinusitis, unspecified (principal); M79.7 Fibromyalgia; K21.9 Gastro-esophageal reflux disease without esophagitis; M19.90 Unspecified osteoarthritis, unspecified site; F41.9 Anxiety disorder, unspecified; F32.A Depression, unspecified; Z87.891 Personal history of nicotine dependence; Z96.651 Presence of right artificial knee joint; Z86.19 Personal history of other infectious and parasitic diseases
CPT/HCPCS: 99213; G0463